=== PATIENT | female | born 1930 ===

== ENCOUNTER 2016-11-26 15:36 | Inpatient (IN) | payer MEDICARE, MEDICAID ==
[2016-11-26 15:37] VITALS: BMI 24.2
[2016-11-26 17:00] LABS: BASO # 0.1 K/uL (0.0-0.2); BASO % 0.3 % (0.0-2.0); EOS # 0.1 K/uL (0.0-0.7); EOS % 0.3 % (0.0-4.0); HEMATOCRIT 39.8 % (34.0-47.0); LYMPH # 1.5 K/uL (1.0-4.3); LYMPH % 8.2 % (20.0-40.0); MEAN CORPUSCULAR HEMOGLOBIN 29.8 pg (27.0-31.0); MEAN CORPUSCULAR HGB CONC 33.1 g/dL (33.0-37.0); MEAN PLATELET VOLUME 9.8 fL (7.2-11.7); MONO # 1.1 K/uL (0.0-0.8); MONO % 6.1 % (0.0-10.0); NRBC % 0.1 % (0.0-2.0); PLATELET COUNT 206 K/uL (130-400); RBC URINE 1 /hpf (0-3); RED CELL DISTRIBUTION WIDTH 14.5 % (11.5-14.5); URINE BILIRUBIN NEGATIVE (NEGATIVE); URINE BLOOD NEGATIVE (NEGATIVE); URINE COLOR Yellow (YELLOW); URINE GLUCOSE (UA) NORMAL (Normal); URINE KETONE NEGATIVE (NEGATIVE); URINE LEUKOCYTE ESTERASE TRACE Leu/uL (Negative); URINE PROTEIN 1+ mg/dL (NEGATIVE); URINE UROBILINOGEN NORMAL mg/dL (0.2-1.0); WBC URINE 2 /hpf (0-5); WHITE BLOOD COUNT 18.3 K/uL (4.8-10.8)
[2016-11-26 17:02] LABS: URINE BACTERIA OCC (<OCC)
[2016-11-26 17:03] LABS: CHLORIDE 96 mmol/L (98-107)
[2016-11-26 17:04] LABS: POTASSIUM 3.9 mmol/L (3.6-5.2); SODIUM 140 mmol/L (132-148)
[2016-11-26 17:06] LABS: ALB/GLOB RATIO 1.1 (1.0-2.1); ALKALINE PHOSPHATASE 108 U/L (38-126); ALT/SGPT 16 U/L (9-52); AST/SGOT 20 U/L (14-36); BILIRUBIN,TOTAL 0.6 mg/dL (0.2-1.3); BLOOD UREA NITROGEN 19 mg/dL (7-17); CARBON DIOXIDE 27 mmol/L (22-30); GFR AFRICAN-AMERICAN 57; GLUCOSE,RANDOM 117 mg/dL (65-105); TOTAL PROTEIN 7.4 g/dL (6.3-8.3)
[2016-11-26 17:07] LABS: CALCIUM 8.9 mg/dl (8.6-10.4)
--- NOTE | 2016-11-26 17:26 | C.PDOC ---
History Of Present Illness 86-year-old female, PMHx includes Hypertension, presents to the emergency department with complaints of non-productive cough x5 days. Patient was seen by PMD today, who sent her to ED for further evaluation. Patients secondary complaint is pain to left ankle, after the car door was slammed onto foot. Patient denies nausea/vomiting, fevers, chills, or any other associated symptoms. PMD Dr Hart Time Seen by Provider: 11/26/16 16:18 Chief Complaint (Nursing): Dizziness/Lightheaded History Per: Patient, Family (SON) History/Exam Limitations: no limitations Onset/Duration Of Symptoms: Days Fall Associated With With Symptoms: No Severity: Mild Past Medical History Reviewed: Historical Data, Nursing Documentation, Vital Signs Vital Signs: Last Vital Signs Temp 98.1 F 11/26/16 15:48 Pulse 90 11/26/16 15:48 Resp 16 11/26/16 15:48 BP 147/79 11/26/16 15:48 Pulse Ox 96 11/26/16 17:34 - Medical History PMH: Fractures (left wrist 3 weeks ago), HTN, Hyperlipidemia Surgical History: Appendectomy - [facility] Procedures APPLICATION OF SPLINT (06/07/15) DRESSING OF WOUND NEC (04/23/13) TETANUS TOXOID ADMINIST (04/23/13) Family History: States: No Known Family Hx - Social History Hx Tobacco Use: No Hx Alcohol Use: No Hx Substance Use: No - Immunization History Hx Tetanus Toxoid Vaccination: Yes Hx Influenza Vaccination: Yes Hx Pneumococcal Vaccination: Yes Review Of Systems Except As Marked, All Systems Reviewed And Found Negative. Constitutional: Negative for: Fever, Chills Cardiovascular: Negative for: Chest Pain, Palpitations Respiratory: Positive for: Cough. Negative for: Shortness of Breath, Sputum Gastrointestinal: Negative for: Nausea, Vomiting, Abdominal Pain, Diarrhea Musculoskeletal: Positive for: Foot Pain Physical Exam - Physical Exam Appears: Well, Non-toxic, No Acute Distress Skin: Warm, Dry, No Rash Head: Normacephalic Eye(s): bilateral: Normal Inspection Nose: Normal Oral Mucosa: Moist Neck: Normal, Normal ROM, Supple Cardiovascular: Rhythm Regular Respiratory: Normal Breath Sounds, No Rales, No Rhonchi, No Wheezing Gastrointestinal/Abdominal: Normal Exam, Bowel Sounds, Soft, No Tenderness Extremity: Normal ROM, Other (ECHYMOSIS TO LATERAL AND MEDIAL L MALLEOLUS. NO DEFORMITY. PULSES INTACT. SENSATION INTACT) Neurological/Psych: Oriented x3 ED Course And Treatment - Laboratory Results Result Diagrams: 11/26/16 16:52 11/26/16 16:52 O2 Sat by Pulse Oximetry: 96 (ra) Pulse Ox Interpretation: Normal - Radiology CXR: Interpreted by Me, Viewed By Me (? right middle lobe infiltrate) Progress Note: Blood work, UA, CXR, EKG ordered and reviewed. Patient has leukocytosis, with bandemia, ? right middle lobe infiltrate - IV antibiotics ordered. Pending Dr. Hart call back. Disposition - Disposition Disposition Time: 19:00 Condition: STABLE - Clinical Impression Clinical Impression: Leukocytosis, Bandemia, Pneumonia - Scribe Statement The provider has reviewed the documentation as recorded by the Polinaibfidencio Lima All medical record entries made by the Scribe were at my direction and personally dictated by me. I have reviewed the chart and agree that the record accurately reflects my personal performance of the history, physical exam, medical decision making, and the department course for this patient. I have also personally directed, reviewed, and agree with the discharge instructions and disposition. Physician Patient Turnover Patient Signed Over To: Jeb Hart Handoff Comments: Pending call back from Dr. Hart.
[2016-11-26 17:54] LABS: NEUTROPHIL 82 % (50-75); TOTAL CELLS COUNTED 100
[2016-11-26 17:55] LABS: GIANT PLATELETS PRESENT; LARGE PLATELETS PRESENT
[2016-11-26] MEDS ORDERED: Azithromycin 500 MG in Sodium Chloride 0.9% 250 ML IVPB STA (18:11)
[2016-11-26] MEDS ORDERED: cefTRIAXone IV 1 gm in Dextros 50 ML IV ONE (18:11)
--- NOTE | 2016-11-26 18:56 | RAD ---
PROCEDURE: CHEST RADIOGRAPH, 1 VIEW HISTORY: COUGH COMPARISON: 09/29/2015. FINDINGS: LUNGS: Perihilar, right lower lobe infiltrate a new finding compared to the prior study. PLEURA: No pneumothorax or pleural fluid seen. CARDIOVASCULAR: Cardiomegaly. No evidence of acute, significant cardiovascular disease. OSSEOUS STRUCTURES: No significant abnormalities. VISUALIZED UPPER ABDOMEN: Normal. OTHER FINDINGS: None. IMPRESSION: New right lower lobe infiltrate perihilar distribution.
[2016-11-26] MEDS ORDERED: cefTRIAXone IV 1 gm in Dextros 50 ML IVPB ONE (18:57)
--- NOTE | 2016-11-26 18:57 | RAD ---
PROCEDURE: Left Ankle Radiographs. HISTORY: LEFT ANKLE PAIN, S/P INJURY COMPARISON: None FINDINGS: BONES: No acute fracture. Plantar and Achilles Tendon insertion calcaneal spurs JOINTS: Normal. No osteoarthritis. Ankle mortise maintained. Talar dome intact SOFT TISSUES: Normal. OTHER FINDINGS: None. IMPRESSION: No acute findings related to/accounting for the clinical presentation. Additional benign and/or incidental findings described above.
[2016-11-26] MEDS ORDERED: Azithromycin 500mg/250ML NS 250 ML IVPB ONE (18:58)
[2016-11-26 20:10] VITALS: RESP 20
[2016-11-27] MEDS: Sodium Chloride 0.45% 1,000 ML IV SCH ×2 (01:55→18:00)
[2016-11-27] MEDS: Piperacill/Tazo 3.375gm in Dex 50 ML IVPB SCH ×3 (05:50→21:16)
[2016-11-27 07:22] LABS: CHLORIDE 99 mmol/L (98-107)
[2016-11-27 07:23] LABS: POTASSIUM 3.7 mmol/L (3.6-5.2); SODIUM 137 mmol/L (132-148)
[2016-11-27 07:25] LABS: ALKALINE PHOSPHATASE 87 U/L (38-126); AST/SGOT 17 U/L (14-36); BILIRUBIN,TOTAL 0.6 mg/dL (0.2-1.3); BLOOD UREA NITROGEN 16 mg/dL (7-17); CARBON DIOXIDE 25 mmol/L (22-30); GFR AFRICAN-AMERICAN > 60; GLUCOSE,RANDOM 95 mg/dL (65-105); TOTAL PROTEIN 6.2 g/dL (6.3-8.3)
[2016-11-27 07:26] LABS: ALT/SGPT 18 U/L (9-52); CALCIUM 8.5 mg/dl (8.6-10.4)
[2016-11-27 07:27] LABS: BASO % 0.3 % (0.0-2.0); EOS # 0.2 K/uL (0.0-0.7); EOS % 1.8 % (0.0-4.0); HEMATOCRIT 36.8 % (34.0-47.0); LYMPH # 1.7 K/uL (1.0-4.3); LYMPH % 12.6 % (20.0-40.0); MEAN CORPUSCULAR HEMOGLOBIN 30.1 pg (27.0-31.0); MEAN PLATELET VOLUME 9.8 fL (7.2-11.7); MONO # 1.1 K/uL (0.0-0.8); MONO % 8.3 % (0.0-10.0); RED CELL DISTRIBUTION WIDTH 14.5 % (11.5-14.5); WHITE BLOOD COUNT 13.7 K/uL (4.8-10.8)
[2016-11-27] MEDS: Azithromycin 500 MG in Sodium Chloride 0.9% 250 ML IVPB SCH (10:21)
--- NOTE | 2016-11-27 13:04 | CP.PCM.CON ---
History of Present Illness - History of Present Illness History of Present Illness: HISTORY OF PRESENT ILLNESS; 86-year-old female with history of HTN, hyperlipidemia, recent fracture left wrist 3 weeks ago who presented to the emergency department with complaints of nonproductive cough and shortness of breath for the past 5 days. Patient was seen by her private M.D. who sent her to the ER for further evaluation. In the ER patient was found to have increasing leukocytosis with WBC count of 18.3 with bandemia and chest x-ray reported as right sided perihilar infiltrate. Patient was therefore advised admission for IV antibiotics. Patient was started on IV Rocephin and and later switched to IV Zosyn and Zithromax. Patient denies history of body aches, nausea, vomiting, fever or chills. Patient is a poor historian and unable to give much details. She also complains off left ankle pain after she hurt herself with her car door onto her feet. Infectious disease consultation requested by for further evaluation and recommendations. PATIENT DENIES ANY RECENT SICK CONTACTS OR ANY RECENT TRAVEL. PATIENT DENIES ANY HEADACHEOR SINUS PROBLEM. PMH: Fractures (left wrist 3 weeks ago), HTN, Hyperlipidemia Surgical History: Appendectomy Family History: States: No Known Family Hx - Social History Hx Tobacco Use: No Hx Alcohol Use: No Hx Substance Use: No - Immunization History Hx Tetanus Toxoid Vaccination: Yes Hx Influenza Vaccination: Yes Hx Pneumococcal Vaccination: Yes Review of Systems - Constitutional Constitutional: absent: Chills, Fever, Headache - EENT Eyes: absent: Change in Vision, Floaters, Photophobia Ears: Dizziness. absent: Ear Pain Nose/Mouth/Throat: absent: Sinus Pain, Mouth Lesions - Cardiovascular Cardiovascular: Dyspnea on Exertion. absent: Chest Pain - Respiratory Respiratory: Cough, Dyspnea on Exertion. absent: Hemoptysis (NONPRODUCTIVE COUGH.), Pain with Coughing - Gastrointestinal Gastrointestinal: absent: Diarrhea, Nausea, Vomiting - Genitourinary Genitourinary: absent: Difficulty Urinating, Dysuria, Pyuria - Musculoskeletal Musculoskeletal: absent: Muscle Cramps, Neck Pain, Stiffness - Neurological Neurological: Dizziness - Hematologic/Lymphatic Hematologic: As Per HPI. absent: Lymphadenopathy Past Patient History - Infectious Disease Hx of Infectious Diseases: None - Past Medical History & Family History Past Medical History?: Yes - Past Social History Smoking Status: Never Smoked - CARDIAC Hx Cardiac Disorders: Yes Hx Hypertension: Yes - PULMONARY Hx Respiratory Disorders: No - NEUROLOGICAL Hx Neurological Disorder: No - HEENT Hx HEENT Problems: No - RENAL Hx Chronic Kidney Disease: No - ENDOCRINE/METABOLIC Hx Endocrine Disorders: No - HEMATOLOGICAL/ONCOLOGICAL Hx Blood Disorders: No - INTEGUMENTARY Hx Dermatological Problems: No - MUSCULOSKELETAL/RHEUMATOLOGICAL Hx Musculoskeletal Disorders: Yes Hx Falls: No Hx Fractures: Yes (left wrist 3 weeks ago) - GASTROINTESTINAL Hx Gastrointestinal Disorders: No - GENITOURINARY/GYNECOLOGICAL Hx Genitourinary Disorders: No - PSYCHIATRIC Hx Psychophysiologic Disorder: No Hx Substance Use: No - SURGICAL HISTORY Hx Surgeries: Yes Hx Appendectomy: Yes - ANESTHESIA Hx Anesthesia: No Hx Anesthesia Reactions: No Meds Allergies/Adverse Reactions: Allergies Allergy/AdvReac Type Severity Reaction Status Date / Time meclizine Allergy Verified 11/26/16 15:50 - Medications Medications: Current Medications Albuterol Sulfate (Albuterol 0.083% Inhal Deena (2.5 Mg/3 Ml) Ud) 2.5 mg INH RQID [facility] Heparin Sodium (Porcine) (Heparin) 5,000 units SC Q12 [facility] Last Admin: 11/27/16 10:21 Dose: 5,000 units Piperacillin Sod/Tazobactam Sod (Zosyn 3.375 Gm Iv Premix) 50 mls @ 100 mls/hr IVPB Q8 [facility] Last Admin: 11/27/16 05:50 Dose: 100 mls/hr Sodium Chloride (Sodium Chloride 0.45%) 1,000 mls @ 80 mls/hr IV .[id number] [facility] Last Admin: 11/27/16 01:55 Dose: 80 mls/hr Azithromycin 500 mg/ Sodium (Chloride) 250 mls @ 250 mls/hr IVPB DAILY [facility] Last Admin: 11/27/16 10:21 Dose: 250 mls/hr Lisinopril (Zestril) 5 mg PO DAILY [facility] Last Admin: 11/27/16 10:21 Dose: 5 mg Montelukast Sodium (Singulair) 10 mg PO HS [facility] Rosuvastatin Calcium (Crestor) 5 mg PO HS [facility] Physical Exam - Constitutional Appears: No Acute Distress - Head Exam Head Exam: NORMAL INSPECTION - Eye Exam Eye Exam: EOMI, PERRL - ENT Exam ENT Exam: Mucous Membranes Dry, Mucous Membranes Moist, Normal Oropharynx - Neck Exam Neck exam: Positive for: Normal Inspection. Negative for: Lymphadenopathy, Thyromegaly - Respiratory Exam Respiratory Exam: Prolonged Expiratory Phase, Rhonchi, Wheezes ( RIGHT SIDE) - Cardiovascular Exam Cardiovascular Exam: REGULAR RHYTHM, +S1, +S2. absent: Systolic Murmur - GI/Abdominal Exam GI & Abdominal Exam: Normal Bowel Sounds, Soft. absent: Organomegaly - Extremities Exam Extremities exam: Positive for: pedal pulses present. Negative for: calf tenderness, pedal edema Additional comments: ecchymosis to the lateral medial left malleolus. pulses intact, sensations intact. - Psychiatric Exam Psychiatric exam: Normal Mood - Skin Skin Exam: Normal Color, Warm Results - Vital Signs Recent Vital Signs: Last Vital Signs Temp 98.5 F 11/27/16 08:00 Pulse 92 H 11/27/16 08:00 Resp 20 11/27/16 08:00 BP 135/78 11/27/16 08:00 Pulse Ox 97 11/27/16 08:00 - Labs Result Diagrams: 11/27/16 06:45 11/27/16 06:45 Labs: Laboratory Results - last 24 hr 11/27/16 06:45 WBC 13.7 H RBC 4.04 Hgb 12.2 Hct 36.8 MCV 91.0 MCH 30.1 MCHC 33.0 RDW 14.5 Plt Count 189 MPV 9.8 Neut % (Auto) 77.0 H Lymph % (Auto) 12.6 L [place] % (Auto) 8.3 Eos % (Auto) 1.8 Baso % (Auto) 0.3 Neut # 10.5 H Lymph # 1.7 [place] # 1.1 H Eos # 0.2 Baso # 0.0 Sodium 137 Potassium 3.7 Chloride 99 Carbon Dioxide 25 Anion Gap 17 BUN 16 Creatinine 0.9 Est GFR ( Amer) > 60 Est GFR (Non-Af Amer) 59 Random Glucose 95 Calcium 8.5 L Total Bilirubin 0.6 AST 17 ALT 18 Alkaline Phosphatase 87 Total Protein 6.2 L Albumin 3.2 L Globulin 3.1 Albumin/Globulin Ratio 1.0 - Imaging and Cardiology Chest x-ray Status: Report reviewed by me (right lower lobe and perihilar infiltrate.) Assessment & Plan (1) Pneumonia Assessment and Plan: chest x-ray; perihilar/right lower lobe pneumonia. Continue IV antibiotics as ordered. Status: Acute (2) Leukocytosis Assessment and Plan: follow-up CBC which seems to be improving presently. Status: Acute (3) Bandemia Status: Acute (4) Dizziness Status: Acute (5) Calcaneal spur of left foot Assessment and Plan: x-ray left ankle ; no acute fracture, calcaneal spur present. If pain persists questionable podiatry consult for further evaluation. Status: Acute - Assessment and Plan (Free Text) Plan: PANCULTURES. ESR, CRP. mrsa screen ATYPICAL TITERS CONTINUE iv ZOSYN 3.375 EVERY 8 HOURLY 11/26/16. CONTINUE iv ZITHROMAX 500 MG QD DAILY. PULMONARY TOILET. Case discussed with staff/ and PMD. WE'LL FOLLOW ALONG WITH YOU WHILE PATIENT IN HOSPITAL. tHANK YOU
[2016-11-27] MEDS: Albuterol 0.083% Inhal Sol (2.5 mg/3 mL) UD INH SCH ×3 (13:05→19:33)
--- NOTE | 2016-11-27 16:07 | CARD ---
APPROVED REPORT EKG Measurement Heart [id number] <Conclusion> Sinus rhythm with premature atrial complexes with aberrant conduction ST & T wave abnormality, consider lateral ischemia Abnormal ECG
--- NOTE | 2016-11-27 23:59 | HP ---
HISTORY OF PRESENT ILLNESS: This patient is an 86-year-old female with hypertension and arthritis. The patient came to my office. The patient was complaining of generalized weakness. and shortness o f breath and cough and chills. This patient was evaluated. The patient was found to be very weak an d we had the patient to go to the Emergency Room for evaluation, which patient has . In the ER the patient had some tests done and was admitted. ALLERGIES: The patient has no known allergy. PAST MEDICAL HISTORY: As I mentioned, a history of hypertension and arthritis. SOCIAL HISTORY: The patient has no history of smoking or alcohol abuse and no substance abuse. FAMILY HISTORY: No inherited disease. REVIEW OF SYSTEMS: RESPIRATORY: Positive for dry cough and some shortness breath with exertion. CARDIOVASCULAR: There is no chest pain or palpitation. GASTROINTESTINAL: The patient denies nausea or vomiting. GENITOURINARY: No dysuria. NEUROLOGIC: The patient complaining of foot pain. PHYSICAL EXAMINATION: GENERAL: The patient is alert, awake and oriented, but weak on admission. The patient has blood pre ssure that was 125/76, pulse is 95, respirations 20, temperature 97.4. HEAD: Normocephalic. NECK: Supple. LUNGS: There are some rales at the right half of the lower aspect of the lung. Also there is some e xpiratory wheezing. HEART: Regular rate and rhythm. ABDOMEN: Soft and nontender. No palpable mass. Positive bowel sounds. EXTREMITIES: There is no edema. NEUROLOGIC:: The patient is alert, awake, but a weak, no motor deficit, except the patient has some unsteady gait. The patient had some tests done. The labs done showed that the WBC 18.3, hemoglobin 13.2, hematocrit 39.8 and platelet was 206. Chemistry: Sodium 140, potassium 2.9, chloride 96, bicarbonate 27, BUN 19, creatinine 1.1. Troponin was less than 0.012. Coagulation: PT was 11.7, INR 1, PTT 31 . The patient had also a chest x-ray done that showed perihilar and right lower lobe infiltrate and als o there is some cardiomegaly, but no evidence of acute or surgical cardiovascular disease. The patient will be admitted with the diagnoses of pneumonia and also with the diagnosis of hypertens ion. The patient will have a consult with Dr. Noroze Roldan, ID. So the case is reviewed with the Kanwal castro se . Ordered blood work for tomorrow. Jeb Hart MD cc: [id number] TT: 11/27/2016 23:58:33 ln
[2016-11-28] MEDS: Sodium Chloride 0.45% 1,000 ML IV SCH ×2 (02:00→13:54)
[2016-11-28] MEDS: Piperacill/Tazo 3.375gm in Dex 50 ML IVPB SCH ×3 (05:59→22:04)
[2016-11-28] MEDS: Albuterol 0.083% Inhal Sol (2.5 mg/3 mL) UD INH SCH ×4 (07:43→20:19)
[2016-11-28] MEDS: Azithromycin 500 MG in Sodium Chloride 0.9% 250 ML IVPB SCH (11:44)
[2016-11-28] MEDS: Promethazine DM 6.25 mg-15 mg/5 ml Syrup PO PRN (14:26)
--- NOTE | 2016-11-28 20:10 | PN ---
DATE: 11/28/2016 SUBJECTIVE: Today, the patient is alert and awake. Denies any shortness of breath, no chest pain, _ ___congestive cough and no dizziness. PHYSICAL EXAMINATION: VITAL SIGNS: The patient has a blood pressure of 127/72, pulse 68, respiration 20, temperature 97.8. NECK: Supple. No JVD. LUNGS: Less rales at the right base and no wheezing today. HEART: Regular rate and rhythm. Positive murmur. ABDOMEN: Soft and nontender. No palpable mass. EXTREMITIES: There is no edema. LABORATORY DATA: The patient has some tests done. WBC was 13.7 yesterday. PLAN: We are going to repeat the blood work tomorrow and also repeat the chest x-ray tomorrow. Cont inue with the current nebulizer, continue on antibiotic therapy and also continue the Singulair. The case was discussed with Kanwal TSANG, nurse practitioner. Lab review again tomorrow. Jeb Hart MD cc: [id number] TT: 11/28/2016 20:09:53 Confirmation # [id number] Dictation # [id number] alessandro
--- NOTE | 2016-11-28 20:29 | CP.PCM.PN ---
Subjective - Date & Time of Evaluation Date of Evaluation: 11/28/16 Time of Evaluation: 20:29 - Subjective Subjective: CHIEF COMPLAINTS TODAY : afebrile,vss Complains of nonproductive cough, SOB ON EXERTION Bilateral expiratory wheeze with rhonchi right lower lung base. ROS. HEENT : N. Resp : +VE SOB, +VE WHEEZING AND COUGH . Cardio : No CP, PND orthopnea GI : No abd. 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 Musculoskel : N Ext. : Pedal pulses intact, no edema or calf pain Derm : N Psych : N. PE. Pt. is alert awake in no distress. V.S As noted in the chart Head ,ear nose,throat and eyes : Normal. Neck : Supple with normal carotids. Lungs: RHONCHI RIGHT LOWER LUNG, WITH PROLONGED EXPIRATORY PHASE. Heart : S1 & S2 normal . . No murmur. S4 + Abd : Soft non tender with normal bowel sounds. Neuro : Moves all ext. with no localized deficit. Ext : No edema with intact pulses. Neg. calf tenderness Derm : No rashes or decubitus ulcer. Radiology/Labs . REVIEWED WBC 13.7 improving esr 68 CRP ELEVATED MYCOPLASMA IGM- NEGATIVE. Asssessment : RLL/RT.PERIHILAR PNEUMONIA ?CAP VS ATYPICAL EXACERBATION OF COPD Plan : CONTINUE iv ZOSYN 3.375 EVERY 8 HOURLY 11/26/16. CONTINUE iv ZITHROMAX 500 MG QD DAILY.11/27/15 PULMONARY TOILET. FOLLOW-UP BLOOD CULTURES. Objective - Vital Signs/Intake and Output Vital Signs (last 24 hours): Temp Pulse Resp BP Pulse Ox 97.8 F 68 20 137/72 99 11/28/16 17:00 11/28/16 17:00 11/28/16 17:00 11/28/16 17:00 11/28/16 17:00 Intake and Output: 11/28/16 11/29/16 18:59 06:59 Intake Total 1290 Balance 1290 - Medications Medications: Current Medications Acetaminophen (Tylenol 325mg Tab) 650 mg PO Q6 PRN PRN Reason: Pain, moderate (4-7) Last Admin: 11/28/16 00:50 Dose: 650 mg Albuterol Sulfate (Albuterol 0.083% Inhal Deena (2.5 Mg/3 Ml) Ud) 2.5 mg INH RQID [facility] Last Admin: 11/28/16 20:19 Dose: 2.5 mg Aspirin (Ecotrin) 81 mg PO DAILY [facility] Last Admin: 11/28/16 11:43 Dose: 81 mg Heparin Sodium (Porcine) (Heparin) 5,000 units SC Q12 [facility] Last Admin: 11/28/16 11:43 Dose: 5,000 units Piperacillin Sod/Tazobactam Sod (Zosyn 3.375 Gm Iv Premix) 50 mls @ 100 mls/hr IVPB Q8 [facility] Last Admin: 11/28/16 13:52 Dose: 100 mls/hr Sodium Chloride (Sodium Chloride 0.45%) 1,000 mls @ 80 mls/hr IV .[id number] [facility] Last Admin: 11/28/16 13:54 Dose: 80 mls/hr Azithromycin 500 mg/ Sodium (Chloride) 250 mls @ 250 mls/hr IVPB DAILY [facility] Last Admin: 11/28/16 11:44 Dose: 250 mls/hr Lisinopril (Zestril) 5 mg PO DAILY [facility] Last Admin: 11/28/16 11:44 Dose: 5 mg Montelukast Sodium (Singulair) 10 mg PO HS [facility] Last Admin: 11/27/16 21:20 Dose: 10 mg Pantoprazole Sodium (Protonix Inj) 40 mg IVP DAILY [facility] Last Admin: 11/28/16 11:43 Dose: 40 mg Promethazine HCl/Dextromethorphan (Phenergan Dm Syrup) 5 ml PO Q6H PRN PRN Reason: Cough and congestion Last Admin: 11/28/16 14:26 Dose: 5 ml Rosuvastatin Calcium (Crestor) 5 mg PO HS [facility] Last Admin: 11/28/16 00:22 Dose: 5 mg - Labs Labs: 11/27/16 06:45 11/27/16 06:45 PT 11.7 SECONDS (9.7-12.2) 11/26/16 16:52 INR 1.0 11/26/16 16:52 APTT 31 SECONDS (21-34) 11/26/16 16:52 Assessment and Plan (1) Pneumonia Status: Acute (2) Leukocytosis Status: Acute (3) Bandemia Status: Acute (4) Dizziness Status: Acute (5) Calcaneal spur of left foot Status: Acute
[2016-11-29] MEDS: Sodium Chloride 0.45% 1,000 ML IV SCH (03:00)
[2016-11-29] MEDS: Piperacill/Tazo 3.375gm in Dex 50 ML IVPB SCH ×3 (05:29→21:24)
[2016-11-29 07:20] LABS: BASO # 0.1 K/uL (0.0-0.2); BASO % 0.8 % (0.0-2.0); EOS # 0.6 K/uL (0.0-0.7); EOS % 5.9 % (0.0-4.0); HEMATOCRIT 33.5 % (34.0-47.0); LYMPH # 1.9 K/uL (1.0-4.3); LYMPH % 20.4 % (20.0-40.0); MEAN CELL VOLUME 90.9 fL (81.0-99.0); MEAN CORPUSCULAR HEMOGLOBIN 30.1 pg (27.0-31.0); MEAN CORPUSCULAR HGB CONC 33.1 g/dL (33.0-37.0); MEAN PLATELET VOLUME 9.9 fL (7.2-11.7); MONO % 10.7 % (0.0-10.0); NRBC % 0.1 % (0.0-2.0); RED CELL DISTRIBUTION WIDTH 14.6 % (11.5-14.5); WHITE BLOOD COUNT 9.3 K/uL (4.8-10.8)
[2016-11-29 07:27] LABS: POTASSIUM 3.7 mmol/L (3.6-5.2)
[2016-11-29 07:30] LABS: CALCIUM 8.6 mg/dl (8.6-10.4)
[2016-11-29] MEDS: Albuterol 0.083% Inhal Sol (2.5 mg/3 mL) UD INH SCH ×4 (09:00→19:42)
[2016-11-29] MEDS: Azithromycin 500 MG in Sodium Chloride 0.9% 250 ML IVPB SCH (10:28)
--- NOTE | 2016-11-29 15:52 | PN ---
DATE: 11/29/2016 Today, the patient is more alert and awake and having less cough and no shortness of breath at rest, but still has shortness of breath on exertion. The patient denied abdominal pain. PHYSICAL EXAMINATION: VITAL SIGNS: The blood pressure is 137/79, pulse 73, respirations 20, temperature 97.8. NECK: Supple. No JVD. LUNGS: Some fine rales at right base. HEART: Regular rate and rhythm. Positive murmur. ABDOMEN: Soft, nontender. No palpable mass. EXTREMITIES: There is no edema. Labs done showed WBC 9.3, hemoglobin 11.1, hematocrit 32.5 and platelets is 233. Chemistry showed so dium is ____, [id number] 102, bicarb 24, BUN 10, creatinine 1.1, and glucose 88. C-reactive protein _ ___. The patient had a chest x-ray done. The result is pending. PLAN: We will continue the current medication. Start physical therapy and the case was reviewed and discussed with ____. Jeb Hart MD cc: [id number] TT: 11/29/2016 15:52:15 Confirmation # [id number] Dictation # [id number] tn
--- NOTE | 2016-11-29 18:20 | CP.PCM.PN ---
Subjective - Date & Time of Evaluation Date of Evaluation: 11/29/16 Time of Evaluation: 18:19 - Subjective Subjective: CHIEF COMPLAINTS TODAY : afebrile,vss Complains of nonproductive cough, SOB ON EXERTION rhonchi right lower lung base. ROS. HEENT : N. Resp : +VE SOB, +VE WHEEZING AND COUGH . Cardio : No CP, PND orthopnea GI : No abd. 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 Musculoskel : N Ext. : Pedal pulses intact, no edema or calf pain Derm : N Psych : N. PE. Pt. is alert awake in no distress. V.S As noted in the chart Head ,ear nose,throat and eyes : Normal. Neck : Supple with normal carotids. Lungs: RHONCHI RIGHT LOWER LUNG, WITH PROLONGED EXPIRATORY PHASE. Heart : S1 & S2 normal . . No murmur. S4 + Abd : Soft non tender with normal bowel sounds. Neuro : Moves all ext. with no localized deficit. Ext : No edema with intact pulses. Neg. calf tenderness Derm : No rashes or decubitus ulcer. Radiology/Labs . REVIEWED WBC 9.3 improving esr 68 CRP ELEVATED urinary AG. LEGINELLA -VE MYCOPLASMA IGM- NEGATIVE. blood culture -ve to date Asssessment : RLL/RT.PERIHILAR PNEUMONIA ?CAP VS ATYPICAL EXACERBATION OF COPD Plan : CONTINUE iv ZOSYN 3.375 EVERY 8 HOURLY 11/26/16. CONTINUE iv ZITHROMAX 500 MG QD DAILY.11/27/15 PULMONARY TOILET. f/u CXR ON THURSDAY. Objective - Vital Signs/Intake and Output Vital Signs (last 24 hours): Temp Pulse Resp BP Pulse Ox 97.8 F 73 20 137/79 96 11/29/16 08:34 11/29/16 08:34 11/29/16 08:34 11/29/16 08:34 11/29/16 08:34 Intake and Output: 11/29/16 11/29/16 06:59 18:59 Intake Total 1780 700 Balance 1780 700 - Medications Medications: Current Medications Acetaminophen (Tylenol 325mg Tab) 650 mg PO Q6 PRN PRN Reason: Pain, moderate (4-7) Last Admin: 11/28/16 00:50 Dose: 650 mg Albuterol Sulfate (Albuterol 0.083% Inhal Deena (2.5 Mg/3 Ml) Ud) 2.5 mg INH RQID [facility] Last Admin: 11/29/16 16:30 Dose: 2.5 mg Aspirin (Ecotrin) 81 mg PO DAILY [facility] Last Admin: 11/29/16 10:29 Dose: 81 mg Heparin Sodium (Porcine) (Heparin) 5,000 units SC Q12 [facility] Last Admin: 11/29/16 10:29 Dose: 5,000 units Piperacillin Sod/Tazobactam Sod (Zosyn 3.375 Gm Iv Premix) 50 mls @ 100 mls/hr IVPB Q8 [facility] Last Admin: 11/29/16 13:33 Dose: 100 mls/hr Azithromycin 500 mg/ Sodium (Chloride) 250 mls @ 250 mls/hr IVPB DAILY [facility] Last Admin: 11/29/16 10:28 Dose: 250 mls/hr Lisinopril (Zestril) 5 mg PO DAILY [facility] Last Admin: 11/29/16 10:29 Dose: 5 mg Montelukast Sodium (Singulair) 10 mg PO HS [facility] Last Admin: 11/28/16 21:38 Dose: 10 mg Pantoprazole Sodium (Protonix Inj) 40 mg IVP DAILY [facility] Last Admin: 11/29/16 10:29 Dose: 40 mg Promethazine HCl/Dextromethorphan (Phenergan Dm Syrup) 5 ml PO Q6H PRN PRN Reason: Cough and congestion Last Admin: 11/28/16 14:26 Dose: 5 ml Rosuvastatin Calcium (Crestor) 5 mg PO HS [facility] Last Admin: 11/28/16 21:37 Dose: 5 mg - Labs Labs: 11/29/16 07:04 11/29/16 07:04 PT 11.7 SECONDS (9.7-12.2) 11/26/16 16:52 INR 1.0 11/26/16 16:52 APTT 31 SECONDS (21-34) 11/26/16 16:52 Assessment and Plan (1) Pneumonia Status: Acute (2) Leukocytosis Status: Acute (3) Bandemia Status: Acute (4) Dizziness Status: Acute (5) Calcaneal spur of left foot Status: Acute
[2016-11-29] MEDS: Promethazine DM 6.25 mg-15 mg/5 ml Syrup PO PRN (18:23)
--- NOTE | 2016-11-29 18:32 | RAD ---
HISTORY: f/u pneumonia COMPARISON: Comparison chest 11/26/2016 TECHNIQUE: Chest PA and lateral FINDINGS: LUNGS: Previously noted right perihilar infiltrate appears to have improved slightly. Suspect mild left basilar atelectasis and or infiltrate as well. . PLEURA: No significant pleural effusion identified. No pneumothorax apparent. CARDIOVASCULAR: Heart size is borderline/ mildly enlarged. Aorta is ectatic and uncoiled. OSSEOUS STRUCTURES: No significant abnormalities. VISUALIZED UPPER ABDOMEN: Normal. OTHER FINDINGS: None. IMPRESSION: Slight improvement previously noted right perihilar infiltrate. Suspect mild left basilar atelectasis and or infiltrate.
[2016-11-30] MEDS: Piperacill/Tazo 3.375gm in Dex 50 ML IVPB SCH ×4 (05:40→21:28)
[2016-11-30 08:15] LABS: BASO # 0.1 K/uL (0.0-0.2); BASO % 0.8 % (0.0-2.0); EOS # 0.7 K/uL (0.0-0.7); EOS % 7.7 % (0.0-4.0); HEMATOCRIT 35.9 % (34.0-47.0); LYMPH # 2.2 K/uL (1.0-4.3); MEAN CELL VOLUME 91.5 fL (81.0-99.0); MEAN CORPUSCULAR HGB CONC 32.8 g/dL (33.0-37.0); MEAN PLATELET VOLUME 9.8 fL (7.2-11.7); MONO # 0.7 K/uL (0.0-0.8); MONO % 8.6 % (0.0-10.0); RED CELL DISTRIBUTION WIDTH 14.7 % (11.5-14.5); WHITE BLOOD COUNT 8.7 K/uL (4.8-10.8)
[2016-11-30] MEDS: Albuterol 0.083% Inhal Sol (2.5 mg/3 mL) UD INH SCH ×4 (08:37→19:39)
[2016-11-30] MEDS: Azithromycin 500 MG in Sodium Chloride 0.9% 250 ML IVPB SCH (10:16)
--- NOTE | 2016-11-30 15:00 | PN ---
DATE: 11/30/2016 Today, patient is more alert and awake and complaining of some congestive cough which is improving an d negative chest pain. The patient had a bowel movement PHYSICAL EXAMINATION: VITAL SIGNS: The patient has a blood pressure of 150/88, pulse 93, respirations 20, temperature 97.7 . NECK: Supple. No JVD. LUNGS: There are some fine rales at the right base. HEART: Regular rate and rhythm. Positive murmur. ABDOMEN: Soft and nontender, no palpable mass. Positive bowel sounds. EXTREMITIES: No edema. LABORATORY DATA: Blood tests done. It showed WBC 8.7, hemoglobin 11.8, hematocrit 35.9 and platelet s are 259. Chemistry: Sodium 141, potassium 3.7, chloride 102, bicarbonate 24, BUN 10, creatinine 1 .1, calcium 8.6. The blood cultures are negative after 3 days. The patient had a chest x-ray. The chest x-ray has shown that there is improvement. The perihilar infiltrate appeared to have improved slightly and mid left basilar atelectasis and/or infiltrate as well. The patient specifically complaining of some pain at the IV site while taking the Zithromax. We are going to order the Zithromax p.o. and also repeat the chest x-ray tomorrow and possible dischar ge tomorrow if the infiltrate is cleared up. Jeb Hart MD cc: [id number] TT: 11/30/2016 14:59:41 Confirmation # [id number] Dictation # [id number] ayah
--- NOTE | 2016-11-30 23:59 | CP.PCM.PN ---
Subjective - Date & Time of Evaluation Date of Evaluation: 11/30/16 Time of Evaluation: 23:59 - Subjective Subjective: CHIEF COMPLAINTS TODAY : afebrile,vss feeling slightly better still c/o COUGH ROS. HEENT : N. Resp : +VE SOB, +VE WHEEZING AND COUGH . Cardio : No CP, PND orthopnea GI : No abd. Pain, n/v [employer] : No headache , focal deficit. Musculoskel : N Ext. : Pedal pulses intact, no edema or calf pain Derm : N Psych : N. PE. Pt. is alert awake in no distress. V.S As noted in the chart Head ,ear nose,throat and eyes : Normal. Neck : Supple with normal carotids. Lungs: RHONCHI B/L LOWER LOWER LOBES, WITH PROLONGED EXPIRATORY PHASE. Heart : S1 & S2 normal . . No murmur. S4 + Abd : Soft non tender with normal bowel sounds. Neuro : Moves all ext. with no localized deficit. Ext : No edema with intact pulses. Neg. calf tenderness Derm : No rashes or decubitus ulcer. Radiology/Labs . REPEAT 11/29 CXR NOTED-SLIGHTLY IMPROVED RT PERIHILAR INFILTRATE BUT LLL NEW INFILTRATE/VS ATELECTASIS WBC 8.7 improving esr 68 CRP ELEVATED urinary AG. LEGINELLA -VE MYCOPLASMA IGM- NEGATIVE. blood culture -ve to date Asssessment : PNEUMONIA B/L EXACERBATION OF COPD Plan : AGREE W PMD PLANS F/U REPEAT CXR IN AM,. IF OK MAY SWITCH TO PO AUGMENTIN 875MG BID X 5DAYS CONTINUE iv ZOSYN 3.375 EVERY 8 HOURLY 11/26/16 FOR NOW CONTINUE PO ZITHROMAX 500 MG QD DAILY.11/27/15AS SWITCHED TO PO PULMONARY TOILET. Objective - Vital Signs/Intake and Output Vital Signs (last 24 hours): Temp Pulse Resp BP Pulse Ox 98.0 F 74 20 142/81 96 11/30/16 19:37 11/30/16 16:00 11/30/16 16:00 11/30/16 16:00 11/30/16 16:00 Intake and Output: 11/30/16 12/01/16 18:59 06:59 Intake Total 600 400 Balance 600 400 - Medications Medications: Current Medications Acetaminophen (Tylenol 325mg Tab) 650 mg PO Q6 PRN PRN Reason: Pain, moderate (4-7) Last Admin: 11/30/16 18:37 Dose: 650 mg Albuterol Sulfate (Albuterol 0.083% Inhal Deena (2.5 Mg/3 Ml) Ud) 2.5 mg INH RQID [facility] Last Admin: 11/30/16 19:39 Dose: 2.5 mg Aspirin (Ecotrin) 81 mg PO DAILY [facility] Last Admin: 11/30/16 10:15 Dose: 81 mg Azithromycin (Zithromax) 500 mg PO DAILY [facility] Piperacillin Sod/Tazobactam Sod (Zosyn 3.375 Gm Iv Premix) 50 mls @ 100 mls/hr IVPB Q8 [facility] Last Admin: 11/30/16 21:28 Dose: 100 mls/hr Lisinopril (Zestril) 5 mg PO DAILY [facility] Last Admin: 11/30/16 10:15 Dose: 5 mg Montelukast Sodium (Singulair) 10 mg PO HS [facility] Last Admin: 11/30/16 21:28 Dose: 10 mg Pantoprazole Sodium (Protonix Inj) 40 mg IVP DAILY [facility] Last Admin: 11/30/16 10:16 Dose: 40 mg Promethazine HCl/Dextromethorphan (Phenergan Dm Syrup) 5 ml PO Q6H PRN PRN Reason: Cough and congestion Last Admin: 11/29/16 18:23 Dose: 5 ml Rosuvastatin Calcium (Crestor) 5 mg PO HS [facility] Last Admin: 11/30/16 21:28 Dose: 5 mg - Labs Labs: 11/30/16 06:55 11/29/16 07:04 PT 11.7 SECONDS (9.7-12.2) 11/26/16 16:52 INR 1.0 11/26/16 16:52 APTT 31 SECONDS (21-34) 11/26/16 16:52 Assessment and Plan (1) Pneumonia Status: Acute (2) Leukocytosis Status: Acute (3) Bandemia Status: Acute (4) Dizziness Status: Acute (5) Calcaneal spur of left foot Status: Acute
[2016-12-01] MEDS: Piperacill/Tazo 3.375gm in Dex 50 ML IVPB SCH (05:29)
[2016-12-01 08:19] VITALS: BP 168/95; PULSE 91; TEMP 97.9; O2SAT 96
[2016-12-01 08:40] LABS: BASO # 0.1 K/uL (0.0-0.2); BASO % 0.9 % (0.0-2.0); EOS # 0.9 K/uL (0.0-0.7); EOS % 9.9 % (0.0-4.0); HEMATOCRIT 38.5 % (34.0-47.0); LYMPH # 2.1 K/uL (1.0-4.3); LYMPH % 22.2 % (20.0-40.0); MEAN CELL VOLUME 91.1 fL (81.0-99.0); MEAN CORPUSCULAR HEMOGLOBIN 29.6 pg (27.0-31.0); MEAN CORPUSCULAR HGB CONC 32.4 g/dL (33.0-37.0); MEAN PLATELET VOLUME 9.4 fL (7.2-11.7); MONO # 0.7 K/uL (0.0-0.8); MONO % 8.1 % (0.0-10.0); RED CELL DISTRIBUTION WIDTH 15.2 % (11.5-14.5); WHITE BLOOD COUNT 9.3 K/uL (4.8-10.8)
[2016-12-01] MEDS: Albuterol 0.083% Inhal Sol (2.5 mg/3 mL) UD INH SCH ×2 (08:46→13:16)
[2016-12-01 08:52] LABS: POTASSIUM 4.6 mmol/L (3.6-5.2)
[2016-12-01 08:54] LABS: BILIRUBIN,TOTAL 0.3 mg/dL (0.2-1.3)
[2016-12-01 08:55] LABS: ALB/GLOB RATIO 1.1 (1.0-2.1); CALCIUM 9.6 mg/dl (8.6-10.4)
--- NOTE | 2016-12-01 09:45 | RAD ---
HISTORY: Pneumonia COMPARISON: 11/26/2016. TECHNIQUE: Chest PA and lateral FINDINGS: LUNGS: The lungs are well inflated and clear. PLEURA: No significant pleural effusion identified. No pneumothorax apparent. CARDIOVASCULAR: There is mild cardiomegaly. Atherosclerotic aortic arch calcifications are present. OSSEOUS STRUCTURES: No significant abnormalities. VISUALIZED UPPER ABDOMEN: Normal. OTHER FINDINGS: None. IMPRESSION: No active pulmonary disease. Mild cardiomegaly.
--- NOTE | 2016-12-01 16:24 | CP.PCM.PN ---
Subjective - Date & Time of Evaluation Date of Evaluation: 12/01/16 Time of Evaluation: 11:00 - Subjective Subjective: Awake, alert, no sob or chest pains, NAD. Objective - Vital Signs/Intake and Output Vital Signs (last 24 hours): Temp Pulse Resp BP Pulse Ox 97.9 F 91 H 20 168/95 H 96 12/01/16 08:14 12/01/16 08:14 12/01/16 08:14 12/01/16 08:14 12/01/16 08:14 Intake and Output: 12/01/16 12/01/16 06:59 18:59 Intake Total 630 Balance 630 - Labs Labs: 12/01/16 08:30 12/01/16 08:30 PT 11.7 SECONDS (9.7-12.2) 11/26/16 16:52 INR 1.0 11/26/16 16:52 APTT 31 SECONDS (21-34) 11/26/16 16:52 Assessment and Plan - Assessment and Plan (Free Text) Assessment: Patient is seen and examined. Alert, awake, denies sob or chest pains. Seen by DR Hart, discharge plan for today on po augmentin for 5 days. Advised to follow up in the office in 1 week.
--- NOTE | 2016-12-01 20:00 | PN ---
DATE: 12/01/2016 SUBJECTIVE: Today, the patient is alert and awake. Denies any shortness of breath, no dizziness. N o shortness of breath. Denies any cough. PHYSICAL EXAMINATION: VITAL SIGNS: The patient has blood pressure of 160/90, pulse is 91, respirations 20, temperature 97. 9. HEENT: Head is normocephalic. NECK: Supple. LUNGS: Clear. HEART: Regular rate and rhythm. Positive murmur. ABDOMEN: Soft and nontender. No palpable mass. EXTREMITIES: There is no edema. LABORATORY DATA: The patient had tests done. The patient had a chest x-ray done today reveal no active pulmonary disease. Also the lab showed WBC 9.3, hemoglobin 12.5, hematocrit 38.5 and plate let 328. Chemistry shows sodium 141, potassium 4.6, chloride 100, bicarbonate 27, BUN 13, creatinine 1.2, glucose 85. WBC 9.3, hemoglobin 12.5, hematocrit 38.5 and platelets are 328. PLAN: We are going to discharge the patient home on Augmentin. The case was reviewed and discussed with Modesta, the nurse practitioner. Jeb Hart MD cc: [id number] TT: 12/01/2016 19:59:30 Confirmation # [id number] Dictation # [id number] ayah
--- NOTE | 2016-12-02 11:52 | DS ---
The patient is an 86-year-old female with history of hypertension and arthritis. The patient came to my office, and the patient was complaining of generalized weakness, cough, and some shortness of edmund ath on exertion. The patient was evaluated and was sent to the Emergency Room for evaluation. In the Emergency Room, the patient was found to have a chest x-ray that was positive for pneumonia, a nd the patient was put on medications including Zosyn and Zithromax, and the patient's ____ medicatio ns. Progressively, the patient has improved, and the chest x-ray done today has revealed no acute pulmona ry disease. So at this point, the patient may be able to be discharged home, and we will discharge the patient on Augmentin and her ____ blood pressure medication. The patient is planning to come to see me within 1 week. Jeb Hart MD cc: [id number] TT: 12/02/2016 11:52:26 jn
== END 2016-12-05 17:05 | disposition home or self-care (01) | DRG 195 ==
LOC: C.ER 15:36 → C.9E 23:10 → C.3T 23:36 → UNDODISIN 12-01 13:16
PROVIDERS: ADMIT Specialist; ATTEND Specialist
DX: J18.9 Pneumonia, unspecified organism (principal); E87.5 Hyperkalemia; I10 Essential (primary) hypertension; D72.825 Bandemia; S97.82XA Crushing injury of left foot, initial encounter; E78.5 Hyperlipidemia, unspecified; M19.90 Unspecified osteoarthritis, unspecified site; M25.572 Pain in left ankle and joints of left foot; R42 Dizziness and giddiness; V48.4XXA Person boarding or alighting a car injured in noncollision transport accident, initial encounter; Z87.81 Personal history of (healed) traumatic fracture

== ENCOUNTER 2016-12-01 18:19 | Inpatient (IN) | payer MEDICARE, MEDICAID ==
[~2016-12-01 18:19] MED LIST: Nitroglycerin 2% Ointment Foilpak UD TOP SCH
[2016-12-01 18:44] VITALS: BMI 28.3
--- NOTE | 2016-12-01 18:47 | C.PDOC ---
History Of Present Illness The patient, a 86y/o female, presents to the emergency department for evaluation of swelling to her lips and lower facial area which began at around 15:30 today. As per daughter, patient has experienced similar symptoms a few years ago. Patient states she was recently discharged from the hospital. Additionally, patient states she has been taking Lisinopril as prescribed. Patient denies cough, shortness of breath, vomiting. Time Seen by Provider: 12/01/16 18:44 History Per: Patient, Family History/Exam Limitations: no limitations Onset/Duration Of Symptoms: Hrs Current Symptoms Are (Timing): Still Present Additional History Per: Patient Past Medical History Reviewed: Historical Data, Nursing Documentation, Vital Signs Vital Signs: Last Vital Signs Temp 98.2 F 12/01/16 21: Pulse 76 12/01/16 21: Resp 20 12/01/16 21:17 BP 143/105 H 12/01/16 21: Pulse Ox 100 12/01/16 21:17 - Medical History PMH: Fractures (left wrist 3 weeks ago), HTN, Hyperlipidemia Denies: Chronic Kidney Disease Surgical History: Appendectomy - [facility] Procedures APPLICATION OF SPLINT (06/07/15) DRESSING OF WOUND NEC (04/23/13) TETANUS TOXOID ADMINIST (04/23/13) Family History: States: Unknown Family Hx - Social History Hx Tobacco Use: No Hx Alcohol Use: No Hx Substance Use: No - Immunization History Hx Tetanus Toxoid Vaccination: Yes Hx Influenza Vaccination: Yes Hx Pneumococcal Vaccination: Yes Review Of Systems Constitutional: Negative for: Fever, Chills Cardiovascular: Negative for: Chest Pain Respiratory: Negative for: Cough, Shortness of Breath Gastrointestinal: Negative for: Nausea, Vomiting, Abdominal Pain, Diarrhea Skin: Positive for: Other (+swelling to lips and lower facial region ) Neurological: Negative for: Weakness, Numbness Physical Exam - Physical Exam Appears: Non-toxic, No Acute Distress Skin: Normal Color, Warm, Dry, No Rash Head: Atraumatic, Swelling (+lower facial region ) Eye(s): bilateral: Normal Inspection Oral Mucosa: Moist Tongue: Normal Appearing, No Swelling Lips: Swelling Gingiva: Normal Appearing, No Swelling Throat: Normal, No Erythema, No Exudate Neck: Normal ROM, Supple Chest: Symmetrical, No Deformity Cardiovascular: Rhythm Regular, No Murmur Respiratory: Normal Breath Sounds, No Rales, No Rhonchi, No Wheezing Back: Normal Inspection Extremity: Normal ROM, Capillary Refill (less than 2 seconds) Neurological/Psych: Oriented x3, Normal Speech, Other (no focal deficits) Gait: Steady ED Course And Treatment - Laboratory Results Result Diagrams: 12/01/16 19:01 12/01/16 19:01 ECG: Interpreted By Me, Viewed By Me ECG Rhythm: Sinus Rhythm, PVC ECG Interpretation: No Changes From Prior Interpretation Of ECG: LVH, PVC, left ventricular repolarization Rate From EC (bpm) O2 Sat by Pulse Oximetry: 98 (RA) Progress Note: Labs ordered and reviewed. Patient received Benadryl IV, Pepcid IV, and Solu-Medrol IV. Medical Decision Making Medical Decision Makin pt resting comfortably no changes 1953 pt now c/o some chest tightness. ecg, cxr, trop ordered. 2156 dr archibald is here to eval the pt. will admit for obs. Disposition - Disposition Disposition Time: 21:56 Condition: GUARDED - Clinical Impression Clinical Impression: Angioedema - Scribe Statement The provider has reviewed the documentation as recorded by the Scribe (Lucy Ruiz) Provider Attestation: All medical record entries made by the Scribe were at my direction and personally dictated by me. I have reviewed the chart and agree that the record accurately reflects my personal performance of the history, physical exam, medical decision making, and the department course for this patient. I have also personally directed, reviewed, and agree with the discharge instructions and disposition.
[2016-12-01] MEDS ORDERED: DiphenhydrAMINE 50 mg/ml Inj IVP STA (19:04)
[2016-12-01 19:09] LABS: BASO # 0.1 K/uL (0.0-0.2); BASO % 0.8 % (0.0-2.0); EOS # 0.7 K/uL (0.0-0.7); EOS % 6.7 % (0.0-4.0); HEMATOCRIT 36.6 % (34.0-47.0); LYMPH # 2.1 K/uL (1.0-4.3); LYMPH % 21.1 % (20.0-40.0); MEAN CELL VOLUME 90.9 fL (81.0-99.0); MEAN CORPUSCULAR HEMOGLOBIN 29.6 pg (27.0-31.0); MEAN CORPUSCULAR HGB CONC 32.6 g/dL (33.0-37.0); MONO # 0.8 K/uL (0.0-0.8); MONO % 8.1 % (0.0-10.0); NRBC % 0.1 % (0.0-2.0); RED CELL DISTRIBUTION WIDTH 14.7 % (11.5-14.5)
[2016-12-01] MEDS ORDERED: DiphenhydrAMINE 50 mg/ml Inj ONE (19:09)
[2016-12-01 19:13] LABS: POTASSIUM 4.5 mmol/L (3.6-5.2)
[2016-12-01 19:15] LABS: BILIRUBIN,TOTAL 0.3 mg/dL (0.2-1.3)
[2016-12-01 19:16] LABS: ALB/GLOB RATIO 1.1 (1.0-2.1); CALCIUM 9.3 mg/dl (8.6-10.4); TOTAL PROTEIN 7.2 g/dL (6.3-8.3)
[2016-12-01] MEDS ORDERED: Nitroglycerin 2% Ointment Foilpak UD TOP ONE (23:16)
[2016-12-01] MEDS ORDERED: MethylPREDNISolone 40 mg Vial ONE (23:17)
[2016-12-01] MEDS: Nitroglycerin 2% Ointment Foilpak UD TOP SCH (23:24)
[2016-12-01] MEDS: MethylPREDNISolone 40 mg Vial IVP SCH (23:25)
[2016-12-02] MEDS ORDERED: Nitroglycerin 2% Ointment Foilpak UD TOP ONE (05:16)
[2016-12-02] MEDS: Nitroglycerin 2% Ointment Foilpak UD TOP SCH ×2 (05:22→11:12)
[2016-12-02] MEDS ORDERED: MethylPREDNISolone 40 mg Vial ONE (06:17)
[2016-12-02] MEDS: MethylPREDNISolone 40 mg Vial IVP SCH ×3 (06:21→22:38)
[2016-12-02 09:14] LABS: RBC URINE < 1 /hpf (0-3); URINE BILIRUBIN NEGATIVE (NEGATIVE); URINE BLOOD NEGATIVE (NEGATIVE); URINE COLOR Yellow (YELLOW); URINE GLUCOSE (UA) NORMAL (Normal); URINE KETONE NEGATIVE (NEGATIVE); URINE LEUKOCYTE ESTERASE NEG Leu/uL (Negative); URINE PROTEIN NEGATIVE (NEGATIVE); URINE UROBILINOGEN NORMAL mg/dL (0.2-1.0); WBC URINE 1 /hpf (0-5)
--- NOTE | 2016-12-02 11:00 | RAD ---
HISTORY: Chest pain COMPARISON: 12/01/2016 at 8:59 a.m. FINDINGS: LUNGS: The right lung is clear. There is left retrocardiac opacity with loss of diaphragmatic silhouette. PLEURA: There is a small left pleural effusion. There is no large right pleural effusion. No pneumothorax. CARDIOVASCULAR: The heart is normal in size. Atherosclerotic aortic arch calcifications are present. OSSEOUS STRUCTURES: Within normal limits for the patient's age. VISUALIZED UPPER ABDOMEN: Normal. OTHER FINDINGS: None. IMPRESSION: Small left pleural effusion. Underlying atelectasis/ pneumonia is suspected.
[2016-12-02 15:06] VITALS: RESP 20
[2016-12-02 15:11] LABS: CHLORIDE 97 mmol/L (98-107)
[2016-12-02 15:12] LABS: POTASSIUM 4.7 mmol/L (3.6-5.2); SODIUM 139 mmol/L (132-148)
[2016-12-02 15:15] LABS: ALB/GLOB RATIO 1.1 (1.0-2.1); ALKALINE PHOSPHATASE 91 U/L (38-126); ALT/SGPT 16 U/L (9-52); AST/SGOT 39 U/L (14-36); BILIRUBIN,TOTAL 0.1 mg/dL (0.2-1.3); BLOOD UREA NITROGEN 26 mg/dL (7-17); CALCIUM 9.4 mg/dl (8.6-10.4); CARBON DIOXIDE 23 mmol/L (22-30); GFR AFRICAN-AMERICAN 43; GLUCOSE,RANDOM 156 mg/dL (65-105); TOTAL PROTEIN 7.4 g/dL (6.3-8.3)
[2016-12-02] MEDS ORDERED: Albuterol-Ipratrop 3 mg / 0.5 (3 ml) UD INH PRN (15:43)
--- NOTE | 2016-12-02 21:37 | HP ---
The patient is an 86-year-old female recently admitted, who came to the my office after being dischar [facility]. THE PATIENT WAS FOUND TO HAVE SWELLING OF THE LIP AND THE PATIENT CLAIMED HAVING SOME SPINACH A ND ALSO HAVE TAKEN LISINOPRIL PRIOR TO DISCHARGE. So, the patient was found to have the swelling of the face, but denies any dizziness or any hoarseness. The patient was advised to go to the Emergency Room for evaluation, and the patient was admitted. ALLERGIES: At the time of admission, the patient had no known allergy. SOCIAL HISTORY: No history of smoking or alcohol abuse. FAMILY HISTORY: No inherited disease. REVIEW OF SYSTEMS: RESPIRATORY SYSTEM: Denies any shortness of breath. CARDIOVASCULAR: No chest pain, no palpitation. GASTROINTESTINAL: The patient having some discomfort in the lip. GENITOURINARY: No dysuria. The patient denied any weakness. PHYSICAL EXAMINATION: The patient is alert, awake, and oriented x 3. Blood pressure 168/88, pulse is 87, respiration is 20, temperature 97.2. HEAD: Some swelling of the lips and both sides of the face. Tongue: No swelling of the tongue. No hoarseness. NECK: Supple, and there is no stridor. LUNGS: Clear. HEART: Regular rate and rhythm. ABDOMEN: Soft, positive bowel sounds, nontender, no palpable mass. EXTREMITIES: There is no edema. SKIN: There is no petechia, no rash. The patient had some lab tests done. WBC is 10, hemoglobin 11.9, hematocrit is 36.6, and platelet is 201. Chemistry: Sodium 139, potassium 4.7, chloride 97, bicarb 23, BUN 26, creatinine 1.4, and glu cose , calcium 9.4. AST 39, ALT 16, alkaline phosphatase 91. Total bilirubin is 7.4, albumin 3 .9, and globulin 3.4. Coag: PT is 10.7, INR 1, and PTT 34. IMPRESSION: ALLERGIC REACTION PROBABLY DUE TO LISINOPRIL, and hypertension, and arthritis. PLAN: The patient was admitted to telemetry and will have Solu-Medrol 40 mg IV q. 8 hours, and also the patient will have Proventil nebulizer, and also will have Benadryl every 8 hours. Case was reviewed and discussed with Kanwal Calix. Jeb Hart MD cc: [id number] TT: 12/02/2016 21:36:53 [facility] # [id number] jn
[2016-12-03] MEDS: MethylPREDNISolone 40 mg Vial IVP SCH ×3 (06:13→22:32)
[2016-12-03 06:33] LABS: POTASSIUM 4.8 mmol/L (3.6-5.2)
[2016-12-03 06:48] LABS: HEMATOCRIT 34.8 % (34.0-47.0); LYMPH % 6.9 % (20.0-40.0); MEAN CELL VOLUME 90.8 fL (81.0-99.0); MEAN CORPUSCULAR HEMOGLOBIN 29.6 pg (27.0-31.0); MEAN CORPUSCULAR HGB CONC 32.6 g/dL (33.0-37.0); MEAN PLATELET VOLUME 9.1 fL (7.2-11.7); MONO # 0.3 K/uL (0.0-0.8); MONO % 2.5 % (0.0-10.0); PLATELET COUNT 333 K/uL (130-400)
[2016-12-03 08:29] LABS: NEUTROPHIL 94 % (50-75); TOTAL CELLS COUNTED 100
[2016-12-03] MEDS ORDERED: Dextrose 5%/0.45% NS 1,000 ML IV SCH (17:00)
[2016-12-03] MEDS: Sodium Chloride 0.45% 1,000 ML IV SCH (17:19)
--- NOTE | 2016-12-03 21:07 | PN ---
DATE: 12/03/2016 PHYSICAL EXAMINATION: GENERAL: Today, the patient is alert and awake, with shortness of breath. No dizziness. Also, no p ruritus. VITAL SIGNS: The patient has a blood pressure of 135/80, pulse is 76, respirations 20, temperature i s 97.8. HEAD: There is marked decrease of the edema involving the face, mainly the cheek and the lips. NECK: Supple. LUNGS: Clear. No rales, no wheezing. HEART: Regular rate and rhythm. Positive murmur. ABDOMEN: Soft, nontender. EXTREMITIES: There is no edema. SKIN: There is no evidence of rashes. PLAN: We are going to decrease the Solu-Medrol from 40 q. 8 hours to 40 q. 12 hours. Benadryl will be given q. 8 hours. We are going to continue also the albuterol treatment and also the famotidine. So, the case again was discussed with Kanwal Calix, the nurse practitioner. Jeb Hart MD cc: [id number] TT: 12/03/2016 21:06:29 Confirmation # [id number] Dictation # [id number] rah
[2016-12-04] MEDS: MethylPREDNISolone 40 mg Vial IVP SCH ×2 (06:15→17:46)
[2016-12-04 06:27] LABS: CALCIUM 8.5 mg/dl (8.6-10.4)
[2016-12-04 06:37] LABS: BASO % 0.1 % (0.0-2.0); HEMATOCRIT 35.8 % (34.0-47.0); LYMPH # 0.6 K/uL (1.0-4.3); LYMPH % 4.7 % (20.0-40.0); MEAN CELL VOLUME 91.8 fL (81.0-99.0); MEAN CORPUSCULAR HGB CONC 32.7 g/dL (33.0-37.0); MEAN PLATELET VOLUME 8.9 fL (7.2-11.7); MONO # 0.3 K/uL (0.0-0.8); MONO % 2.5 % (0.0-10.0); PLATELET COUNT 325 K/uL (130-400); WHITE BLOOD COUNT 13.1 K/uL (4.8-10.8)
[2016-12-04 08:45] LABS: NEUTROPHIL 95 % (50-75); TOTAL CELLS COUNTED 100
[2016-12-04] MEDS ORDERED: MethylPREDNISolone 40 mg Vial IVP SCH ×2 (10:00→18:00)
[2016-12-04] MEDS: Sodium Chloride 0.45% 1,000 ML IV SCH (13:21)
--- NOTE | 2016-12-04 22:19 | PN ---
DATE: 12/04/2016 The patient is more alert and awake. He feels somewhat weak and denies any shortness of breath, no c hest pain, no palpitation, no dizziness. The patient has a blood pressure of 136/68, pulse 69, respi rations 20, temperature 98.9. NECK: Supple. No JVD. LUNGS: Clear. HEART: Regular rate and rhythm. Positive murmur. ABDOMEN: Soft. EXTREMITIES: No edema. The face has marked decreased swelling of the face. LABORATORY DATA: The patient had some tests done. WBC is 13.1, hemoglobin 11.7, hematocrit 35.8, an d platelet is 325. Chemistry: Sodium 140, potassium 4, chloride 101, bicarbonate 24, BUN 32, creatin ine 1.2, glucose is 161, calcium 8.5. PLAN: We are going to decrease the Solu-Medrol to 20 mg IV q. 12 hours and also we are going to decr ease the Benadryl at 12 mg q. 12 hours. The labs will be repeated. The case was reviewed and discussed with Hailey. Jeb Hart MD cc: [id number] TT: 12/04/2016 22:19:25 Confirmation # [id number] Dictation # [id number]
[2016-12-05] MEDS: MethylPREDNISolone 40 mg Vial IVP SCH (05:52)
[2016-12-05] MEDS: Sodium Chloride 0.45% 1,000 ML IV SCH (09:00)
[2016-12-05 12:08] LABS: BASO % 0.1 % (0.0-2.0); HEMATOCRIT 38.1 % (34.0-47.0); LYMPH # 0.5 K/uL (1.0-4.3); LYMPH % 4.2 % (20.0-40.0); MEAN CELL VOLUME 91.8 fL (81.0-99.0); MEAN CORPUSCULAR HEMOGLOBIN 28.9 pg (27.0-31.0); MEAN CORPUSCULAR HGB CONC 31.5 g/dL (33.0-37.0); MEAN PLATELET VOLUME 9.2 fL (7.2-11.7); MONO # 0.4 K/uL (0.0-0.8); MONO % 3.3 % (0.0-10.0); NRBC % 0.1 % (0.0-2.0); PLATELET COUNT 343 K/uL (130-400); RED CELL DISTRIBUTION WIDTH 15.1 % (11.5-14.5); WHITE BLOOD COUNT 12.9 K/uL (4.8-10.8)
[2016-12-05 12:14] LABS: POTASSIUM 4.1 mmol/L (3.6-5.2)
[2016-12-05 12:17] LABS: CALCIUM 8.2 mg/dl (8.6-10.4)
[2016-12-05 12:29] LABS: NEUTROPHIL 86 % (50-75); TOTAL CELLS COUNTED 100
--- NOTE | 2016-12-05 13:52 | CP.PCM.PN ---
Subjective - Date & Time of Evaluation Date of Evaluation: 12/05/16 Time of Evaluation: 10:25 - Subjective Subjective: Pt seen today with Dr. Hart , NAD, comfortable , face swelling improved Objective - Vital Signs/Intake and Output Vital Signs (last 24 hours): Temp Pulse Resp BP Pulse Ox 97.5 F L 63 20 183/103 H 96 12/05/16 07:00 12/05/16 12:17 12/05/16 07:00 12/05/16 12:17 12/05/16 12:17 Intake and Output: 12/05/16 12/05/16 06:59 18:59 Intake Total 640 Balance 640 - Medications Medications: Current Medications Acetaminophen (Tylenol 325mg Tab) 650 mg PO Q6 PRN PRN Reason: Pain, moderate (4-7) Last Admin: 12/03/16 20:31 Dose: 650 mg Albuterol/Ipratropium (Duoneb 3 Mg/0.5 Mg (3 Ml) Ud) 3 ml INH RQ6 PRN PRN Reason: Shortness of Breath Amlodipine Besylate (Norvasc) 10 mg PO DAILY [facility] Last Admin: 12/05/16 10:00 Dose: 10 mg Diphenhydramine HCl (Benadryl) 25 mg PO Q12 [facility] Last Admin: 12/05/16 10:00 Dose: 25 mg Famotidine (Pepcid) 20 mg IVP DAILY [facility] Last Admin: 12/05/16 10:00 Dose: 20 mg Heparin Sodium (Porcine) (Heparin) 5,000 units SC Q12 [facility] Last Admin: 12/05/16 10:00 Dose: 5,000 units Sodium Chloride (Sodium Chloride 0.45%) 1,000 mls @ 50 mls/hr IV .Q20H [facility] Last Admin: 12/05/16 09:00 Dose: 50 mls/hr Methylprednisolone (Solu-Medrol) 20 mg IVP Q12H [facility] Last Admin: 12/05/16 05:52 Dose: 20 mg - Labs Labs: 12/05/16 11:58 12/05/16 11:58 PT 10.7 SECONDS (9.7-12.2) 12/02/16 08:50 INR 1.0 12/02/16 08:50 APTT 34 SECONDS (21-34) 03/21/17 08:50 Assessment and Plan - Assessment and Plan (Free Text) Assessment: A/P 86 yr old female admitted for angioedema vss- stable labs- cr. 1.2 Dr. Hart cleared patient for discharge home today and f/u with his office in 1 week
[2016-12-05 16:46] VITALS: BP 127/79; PULSE 71; TEMP 98; O2SAT 98
--- NOTE | 2016-12-05 18:05 | PN ---
DATE: 12/05/2016 SUBJECTIVE: Today, the patient is more alert and awake and denies any dizziness. No shortness of br eath and also no palpitations. PHYSICAL EXAMINATION: VITAL SIGNS: The patient has a blood pressure of 127/79, pulse rate is 71, respirations 20, temperat ure 98, and O2 sat is 98% on room air. HEENT: The mouth shows decrease of the swelling. Almost the face went to normal size. There is no swelling of the tongue. NECK: Supple. No stridor. LUNGS: Clear. HEART: Regular rate and rhythm. ABDOMEN: Soft and nontender. EXTREMITIES: There is no edema. LABORATORY DATA: Shows WBC 12.9, hemoglobin 12, hematocrit 38.1, and platelets 243. Chemistry: Sod ium 139, potassium 4.1, chloride 102, bicarb 23, BUN 38, creatinine 1.4, glucose 160, calcium 8.2. PLAN: We are going to discontinue the Solu-Medrol and the patient will be discharged home on prednis one 10 mg twice a day. The patient will come to see me within a week. Jeb Hart MD cc: [id number] TT: 12/05/2016 18:04:40 Confirmation # [id number] Dictation # [id number] mn
== END 2016-12-05 17:05 | disposition home or self-care (01) | DRG 916 ==
LOC: C.ER 18:19 → C.9E 21:57 → OBSVTOIN 22:55 → C.6T 12-02 13:17
PROVIDERS: ADMIT Specialist; ATTEND Specialist
DX: T78.3XXA Angioneurotic edema, initial encounter (principal); T46.4X5A Adverse effect of angiotensin-converting-enzyme inhibitors, initial encounter; I10 Essential (primary) hypertension; E78.5 Hyperlipidemia, unspecified

== ENCOUNTER 2017-02-18 15:08 | Emergency (ER) | payer MEDICARE, MEDICAID ==
[2017-02-18 15:24] VITALS: RESP 18; O2SAT 99; BMI 24.7
--- NOTE | 2017-02-18 16:07 | C.PDOC ---
History Of Present Illness 86 y/o female sent from PMD's office status post fall 3-4 days ago who states she injured her left knee and c/o left side pain. Patient denies head injury, LOC, new weakness, or new numbness. Patient also reports complaint of epigastric abdominal pain. Denies fever, chills, nausea, vomiting, diarrhea, or other associated symptoms. Time Seen by Provider: 02/18/17 15:45 Chief Complaint (Nursing): Lower Extremity Problem/Injury History Per: Patient History/Exam Limitations: no limitations Onset/Duration Of Symptoms: Days Current Symptoms Are (Timing): Still Present Reports Recently: Treated By A Physician Recent travel outside of the [place]: No Past Medical History Reviewed: Historical Data, Nursing Documentation, Vital Signs Vital Signs: Last Vital Signs Temp 97.4 F L 02/18/17 15:24 Pulse 61 02/18/17 15:24 Resp 18 02/18/17 15:24 BP 145/87 02/18/17 15:24 Pulse Ox 99 02/18/17 17:21 - Medical History PMH: Fractures (left wrist 3 weeks ago), HTN, Hypercholesterolemia, Hyperlipidemia Surgical History: Appendectomy - [facility] Procedures APPLICATION OF SPLINT (06/07/15) DRESSING OF WOUND NEC (04/23/13) TETANUS TOXOID ADMINIST (04/23/13) Family History: States: Unknown Family Hx - Social History Hx Tobacco Use: No Hx Alcohol Use: No Hx Substance Use: No - Immunization History Hx Tetanus Toxoid Vaccination: Yes Hx Influenza Vaccination: Yes Hx Pneumococcal Vaccination: Yes Review Of Systems Except As Marked, All Systems Reviewed And Found Negative. Constitutional: Negative for: Fever, Chills Cardiovascular: Negative for: Chest Pain Respiratory: Negative for: Cough, Shortness of Breath Gastrointestinal: Positive for: Abdominal Pain. Negative for: Nausea, Vomiting , Diarrhea Musculoskeletal: Positive for: Other (left knee pain ). Negative for: Neck Pain Skin: Negative for: Rash Neurological: Negative for: Headache, Dizziness Physical Exam - Physical Exam Appears: Non-toxic, No Acute Distress Skin: Normal Color, Warm, Dry Head: Atraumatic, Normacephalic Chest: Symmetrical Cardiovascular: Rhythm Regular Respiratory: Normal Breath Sounds, No Rales, No Rhonchi, No Wheezing Gastrointestinal/Abdominal: Soft, Tenderness (epigastric), No Distention, No Guarding, No Rebound Back: Normal Inspection Extremity: Normal ROM, No Tenderness, Capillary Refill (< 2 sec.), No Deformity , Swelling (left lateral knee) Extremity: Bilateral: Normal Color And Temperature Neurological/Psych: Oriented x3, Normal Speech, Normal Cognition ED Course And Treatment - Laboratory Results Result Diagrams: 02/18/17 16:17 02/18/17 16:17 Lab Interpretation: Normal ECG: Interpreted By Me ECG Rhythm: Sinus Rhythm, Nonspecific Changes ECG Interpretation: No Acute Changes Rate From EC O2 Sat by Pulse Oximetry: 99 (RA) Pulse Ox Interpretation: Normal - Radiology CXR: Interpreted by Me CXR Interpretation: Yes: No Acute Disease - Other Rad Left Knee XR X-Ray: Viewed By Me, Read By Radiologist Interpretation: No evidence of acute displaced fracture nor dislocation. . There is a moderate anterior soft tissue swelling and small suprapatellar joint effusion Progress Note: CxR, Left knee x-ray, EKG, bloodwork ordered. Treated with IVFs. sheila bandage applied to left knee. On re-evaluation, abdomen soft non-tender. Felling better, hungry wants to go home Reassessment Condition: Improved Disposition Counseled Patient/Family Regarding: Studies Performed, Diagnosis, Need For Followup, Rx Given - Disposition Referrals: [facility] [Outside] [facility] [Outside] Disposition: HOME/ ROUTINE Disposition Time: 18:00 Condition: IMPROVED Additional Instructions: Follow up with PMD or clinic for further evaluation Tylenol as needed for pain Instructions: Knee Pain (ED), Knee Exercises (GEN), Epigastric Pain (ED), Swollen Joint (ED) Print Language: SLOVENIAN - POA Present On Arrival: None - Clinical Impression Clinical Impression: Epigastric pain, Fall, accidental, Knee pain - PA / MANAGER CLINICAL APPLICATIONS / Resident Statement MD/DO has reviewed & agrees with the documentation as recorded. - Scribe Statement The provider has reviewed the documentation as recorded by the Parmjit CHRISTIANSEN All medical record entries made by the Scribe were at my direction and personally dictated by me. I have reviewed the chart and agree that the record accurately reflects my personal performance of the history, physical exam, medical decision making, and the department course for this patient. I have also personally directed, reviewed, and agree with the discharge instructions and disposition.
[2017-02-18 16:21] LABS: BASO % 0.6 % (0.0-2.0); EOS # 0.3 K/uL (0.0-0.7); EOS % 4.1 % (0.0-4.0); HEMATOCRIT 41.6 % (34.0-47.0); LYMPH # 1.9 K/uL (1.0-4.3); LYMPH % 29.4 % (20.0-40.0); MEAN CELL VOLUME 91.7 fL (81.0-99.0); MEAN CORPUSCULAR HEMOGLOBIN 29.8 pg (27.0-31.0); MEAN CORPUSCULAR HGB CONC 32.5 g/dL (33.0-37.0); MEAN PLATELET VOLUME 8.9 fL (7.2-11.7); MONO # 0.7 K/uL (0.0-0.8); MONO % 10.3 % (0.0-10.0); RED CELL DISTRIBUTION WIDTH 15.3 % (11.5-14.5); WHITE BLOOD COUNT 6.5 K/uL (4.8-10.8)
[2017-02-18 16:30] LABS: CHLORIDE 105 mmol/L (98-107); SODIUM 141 mmol/L (132-148)
[2017-02-18 16:31] LABS: POTASSIUM 3.5 mmol/L (3.6-5.2)
[2017-02-18 16:33] LABS: ALB/GLOB RATIO 1.3 (1.0-2.1); ALKALINE PHOSPHATASE 95 U/L (38-126); ALT/SGPT 18 U/L (9-52); AST/SGOT 23 U/L (14-36); BILIRUBIN,TOTAL 0.4 mg/dL (0.2-1.3); BLOOD UREA NITROGEN 17 mg/dL (7-17); CARBON DIOXIDE 25 mmol/L (22-30); GFR AFRICAN-AMERICAN > 60; GLUCOSE,RANDOM 91 mg/dL (65-105); TOTAL PROTEIN 6.8 g/dL (6.3-8.3)
[2017-02-18 16:34] LABS: CALCIUM 9.2 mg/dl (8.6-10.4)
[2017-02-18] MEDS: Sodium Chloride 0.9% 1,000 ML IV SCH (16:51)
--- NOTE | 2017-02-18 16:52 | RAD ---
PROCEDURE: Left Knee Radiographs. HISTORY: Pain. COMPARISON: None. FINDINGS: BONES: No evidence of acute displaced fracture nor dislocation. The osseous structures intact so far as can be seen. Mild degenerative osteoarthritis with slight spurring of the medial tibial spine and small anterior superior patellar enthesophyte. . There is moderate anterior soft tissue swelling with small joint effusion. Consider follow-up MRI if pain persists, occult fracture or internal derangement suspected clinically. Note made of an elliptical shaped sclerotic density within the left lateral femoral metaphysis that probably represents an incidental bone island or osteoma. JOINTS: As above JOINT EFFUSION: As above. OTHER FINDINGS: Vascular calcifications are present IMPRESSION: No evidence of acute displaced fracture nor dislocation. . There is a moderate anterior soft tissue swelling and small suprapatellar joint effusion. Mild DJD.
[2017-02-18] MEDS: Alum-Mag Hydrox-Simethicone Susp (30 mL) PO STA (17:22)
[2017-02-18] MEDS ORDERED: Alum-Mag Hydrox-Simethicone Susp (30 mL) ONE (17:26)
[2017-02-18 17:31] LABS: RBC URINE < 1 /hpf (0-3); TRANSITIONAL EPITHIAL < 1 /hpf (0-3); URINE BACTERIA RARE (<OCC); URINE BILIRUBIN NEGATIVE (NEGATIVE); URINE BLOOD NEGATIVE (NEGATIVE); URINE COLOR Straw (YELLOW); URINE GLUCOSE (UA) NORMAL (Normal); URINE KETONE NEGATIVE (NEGATIVE); URINE LEUKOCYTE ESTERASE NEG Leu/uL (Negative); URINE PROTEIN NEGATIVE (NEGATIVE); URINE UROBILINOGEN NORMAL mg/dL (0.2-1.0); WBC URINE 1 /hpf (0-5)
[2017-02-18 17:54] VITALS: BP 138/60; PULSE 72; TEMP 97.6
--- NOTE | 2017-02-18 18:26 | RAD ---
HISTORY: SOB COMPARISON: Comparison chest 12/01/2016 TECHNIQUE: Chest PA and lateral. FINDINGS: LUNGS: Mild bibasilar atelectasis left greater than right. Developing lower lobe infiltrates could be excluded with follow-up radiographs. Mild hyperinflation ; rule out chronic changes of COPD or emphysema. . Tiny left-sided effusion not excluded. PLEURA: No apparent pneumothorax apparent. CARDIOVASCULAR: Normal. OSSEOUS STRUCTURES: Questionable old healed right posterolateral rib fracture. Minor multilevel degenerative spondylosis of the thoracic spine. There is also a subtle dextroscoliosis in the upper/mid thoracic region. VISUALIZED UPPER ABDOMEN: Normal. OTHER FINDINGS: None. IMPRESSION: Mild bibasilar atelectasis left greater than right. Developing lower lobe infiltrates could be excluded with follow-up radiographs. Mild hyperinflation ; rule out chronic changes of COPD or emphysema. . Tiny left-sided effusion not excluded.
--- NOTE | 2017-02-20 12:19 | CARD ---
APPROVED REPORT EKG Measurement Heart [id number] <Conclusion> Normal sinus rhythm with sinus arrhythmia ST & T wave abnormality, consider anterolateral ischemia Abnormal ECG
== END 2017-02-18 17:54 | disposition home or self-care (01) ==
LOC: C.ER 15:08
DX: M25.562 Pain in left knee (principal); W01.0XXA Fall on same level from slipping, tripping and stumbling without subsequent striking against object, initial encounter; Y93.89 Activity, other specified; Y92.89 Other specified places as the place of occurrence of the external cause; R10.13 Epigastric pain
CPT/HCPCS: 71020; 73562; 80053; 81001; 82553; 83690; 84484; 85025; 93005; 99285; J7040

== ENCOUNTER 2017-04-17 14:06 | Emergency (ER) | payer MEDICARE, MEDICAID ==
[2017-04-17 14:33] VITALS: BMI 26.4
[2017-04-17 14:48] VITALS: TEMP 97.4
[2017-04-17 15:55] LABS: SQUAMOUS EPITHIAL < 1 /hpf (0-5); URINE BILIRUBIN 1+ (NEGATIVE); URINE BLOOD NEGATIVE (NEGATIVE); URINE CLARITY Clear (Clear); URINE COLOR Yellow (YELLOW); URINE GLUCOSE (UA) NORMAL (Normal); URINE LEUKOCYTE ESTERASE NEG Leu/uL (Negative); URINE NITRATE NEGATIVE (NEGATIVE); URINE PROTEIN NEGATIVE (NEGATIVE)
--- NOTE | 2017-04-17 16:08 | RAD ---
PROCEDURE: Radiographs of the Lumbar Spine. HISTORY: r/o fx COMPARISON: No prior. FINDINGS: BONES: Vertebral bodies maintained height. Normal alignment maintained. Transverse processes and posterior elements are grossly intact. DISC SPACES: There is narrowing of the L2-3 and L5-S1 disc spaces with osteophyte formation, consistent with degenerative disc disease. There is vacuum disc phenomenon seen at L 2-3 through L5-S1. OTHER FINDINGS: None. IMPRESSION: Degenerative disc disease L2-3 and L5-S1. No evidence of fracture or dislocation.
--- NOTE | 2017-04-17 16:09 | RAD ---
PROCEDURE: Left Knee Radiographs. HISTORY: Pain. COMPARISON: None. FINDINGS: BONES: Normal. No fracture. JOINTS: Moderate tricompartmental osteoarthritis. No articular erosion. JOINT EFFUSION: None. OTHER FINDINGS: None. IMPRESSION: Moderate tricompartmental osteoarthritis.
[2017-04-17 17:06] VITALS: BP 132/85; PULSE 75; RESP 16; O2SAT 98
--- NOTE | 2017-04-17 17:34 | C.PDOC ---
History Of Present Illness 86 yr old female presents to the ER with complaints of diffuse body pains for the past 6 days. Patient states the pain is mostly in the lower back and left knee. Denies injury, chest pain, SOB, cough, nausea, vomiting, abdominal pain, dysuria, hematuria, weakness or numbness, Time Seen by Provider: 04/17/17 15:30 Chief Complaint (Nursing): Back Pain History Per: Patient History/Exam Limitations: no limitations Onset/Duration Of Symptoms: Days (6) Past Medical History Reviewed: Historical Data, Nursing Documentation, Vital Signs Vital Signs: Last Vital Signs Temp 97.4 F L 04/17/17 14:34 Pulse 75 04/17/17 17:05 Resp 16 04/17/17 17:05 BP 132/85 04/17/17 17:05 Pulse Ox 98 04/17/17 17:54 - Medical History PMH: Fractures (left wrist 3 weeks ago), HTN, Hypercholesterolemia, Hyperlipidemia Surgical History: Appendectomy - [facility] Procedures APPLICATION OF SPLINT (06/07/15) DRESSING OF WOUND NEC (04/23/13) TETANUS TOXOID ADMINIST (04/23/13) Family History: States: No Known Family Hx - Social History Hx Tobacco Use: No Hx Alcohol Use: No Hx Substance Use: No - Immunization History Hx Tetanus Toxoid Vaccination: Yes Hx Influenza Vaccination: Yes Hx Pneumococcal Vaccination: Yes Review Of Systems Except As Marked, All Systems Reviewed And Found Negative. Constitutional: Positive for: Other ((+) Diffuse body pains ) Cardiovascular: Negative for: Chest Pain Respiratory: Negative for: Cough, Shortness of Breath Gastrointestinal: Negative for: Nausea, Vomiting, Abdominal Pain Genitourinary: Negative for: Dysuria, Hematuria Musculoskeletal: Positive for: Back Pain (Lower back ), Other ((+) Left knee ) Neurological: Negative for: Weakness, Numbness Physical Exam - Physical Exam Appears: Non-toxic, No Acute Distress Skin: Warm, Dry, No Rash Head: Atraumatic, Normacephalic Oral Mucosa: Moist Chest: Symmetrical, No Tenderness Cardiovascular: Rhythm Regular, No Murmur Respiratory: Normal Breath Sounds, No Rales, No Rhonchi, No Stridor, No Wheezing Gastrointestinal/Abdominal: Normal Exam, Soft, No Tenderness, No Guarding, No Rebound Back: Normal Inspection, No CVA Tenderness Extremity: Normal ROM, No Swelling Neurological/Psych: Oriented x3, Normal Speech, Normal Motor ED Course And Treatment O2 Sat by Pulse Oximetry: 98 (RA ) Pulse Ox Interpretation: Normal - Other Rad X-Ray - Lumbar Spine X-Ray: Viewed By Me, Read By Radiologist Interpretation: PROCEDURE: Radiographs of the Lumbar Spine. HISTORY: r/o fx. COMPARISON: No prior. FINDINGS: BONES: Vertebral bodies maintained height. Normal alignment maintained. Transverse processes and posterior elements are grossly intact. DISC SPACES: There is narrowing of the L2-3 and L5-S1 disc spaces with osteophyte formation, consistent with degenerative disc disease. There is vacuum disc phenomenon seen at L 2-3 through L5-S1. OTHER FINDINGS: None. IMPRESSION: Degenerative disc disease L2-3 and L5-S1. No evidence of fracture or dislocation. X-Ray - Left Knee X-Ray: Viewed By Me, Read By Radiologist Interpretation: PROCEDURE: Left Knee Radiographs. HISTORY: Pain. COMPARISON : None. FINDINGS: BONES: Normal. No fracture. JOINTS: Moderate tricompartmental osteoarthritis. No articular erosion. JOINT EFFUSION: None. OTHER FINDINGS: None. IMPRESSION: Moderate tricompartmental osteoarthritis. Medical Decision Making Medical Decision Making: PLAN: * X-Ray - Left Knee, LS Spine * Urinalysis * Motrin PO Disposition - Disposition Referrals: [facility] Ashu Love, [Non-Staff] - Disposition: HOME/ ROUTINE Disposition Time: 16:25 Condition: GOOD Additional Instructions: Thank you for letting us take care of you today. Your provider was Dr. Dalton. You were treated for osteoarthritis. The emergency medical care you received today was directed at your acute symptoms. If you were prescribed any medication, please fill it and take as directed. It may take several days for your symptoms to resolve. Return to the Emergency Department if your symptoms worsen, do not improve, or if you have any other problems. Please contact your doctor or call one of the physicians/clinics you have been referred to that are listed on the Patient Visit Information form that is included in your discharge packet. Bring any paperwork you were given at discharge with you along with any medications you are taking to your follow up visit. Our treatment cannot replace ongoing medical care by a primary care provider (PCP) outside of the emergency department. Thank you for allowing the [facility] team to be part of your care today. Follow up with your doctor in 2-3 days for re-evaluation and further management. Prescriptions: Cyclobenzaprine [Cyclobenzaprine HCl] 10 mg PO Q8 PRN #20 tab PRN Reason: Muscle Spasm Ibuprofen [Motrin] 600 mg PO Q6 PRN #20 tab PRN Reason: Pain, Moderate (4-7) Instructions: Osteoarthritis (ED) Forms: Gen Discharge Inst Turkish, [employer] (Turkish) Print Language: EGYPTIAN - Clinical Impression Clinical Impression: Arthritis, Low back pain - Scribe Statement The provider has reviewed the documentation as recorded by the Parmjit Ryan Provider Attestation: All medical record entries made by the Parmjit were at my direction and personally dictated by me. I have reviewed the chart and agree that the record accurately reflects my personal performance of the history, physical exam, medical decision making, and the department course for this patient. I have also personally directed, reviewed, and agree with the discharge instructions and disposition.
== END 2017-04-17 17:05 | disposition home or self-care (01) ==
LOC: C.ER 14:06
DX: M17.12 Unilateral primary osteoarthritis, left knee (principal); M54.5 Low back pain

== ENCOUNTER 2017-11-27 13:26 | Inpatient (IN) | payer MEDICARE, MEDICAID ==
[2017-11-27 13:36] VITALS: BMI 27.3
--- NOTE | 2017-11-27 14:03 | C.PDOC ---
History Of Present Illness 87 year old female with PMHx of HTN is sent to the ED from his Dr. Hart's office for evaluation of SOB. As per Dr. Hart while in the office she was sating in the low 90s high 80s. Patient c/o SOB on exertion that has been going on since Thursday, patient recently returned from [facility]. Patient denies CP, headache, dizziness, abdominal pain, leg swelling. Chief Complaint (Nursing): Shortness Of Breath History Per: Patient, Family History/Exam Limitations: no limitations Onset/Duration Of Symptoms: Days Current Symptoms Are (Timing): Still Present Exacerbating Factor(s): Exertion Current Respiratory Medications: See Home Med List Recent travel outside of the [place]: No Additional History Per: Patient Past Medical History Reviewed: Historical Data, Nursing Documentation, Vital Signs Vital Signs: Last Vital Signs Temp 97.6 F 11/27/17 13:36 Pulse 85 11/27/17 16:50 Resp 20 11/27/17 16:50 BP 161/98 H 11/27/17 16:50 Pulse Ox 100 11/27/17 16:50 - Medical History PMH: Fractures (left wrist 3 weeks ago), HTN, Hypercholesterolemia, Hyperlipidemia Surgical History: Appendectomy - [facility] Procedures APPLICATION OF SPLINT (06/07/15) DRESSING OF WOUND NEC (04/23/13) TETANUS TOXOID ADMINIST (04/23/13) Family History: States: Unknown Family Hx - Social History Hx Tobacco Use: No Hx Alcohol Use: No Hx Substance Use: No - Immunization History Hx Tetanus Toxoid Vaccination: Yes Hx Influenza Vaccination: Yes Hx Pneumococcal Vaccination: Yes Review Of Systems Constitutional: Negative for: Fever, Chills Cardiovascular: Negative for: Chest Pain Respiratory: Positive for: Shortness of Breath, SOB with Excertion Gastrointestinal: Negative for: Nausea, Vomiting, Abdominal Pain Skin: Negative for: Rash Neurological: Negative for: Weakness, Numbness Physical Exam - Physical Exam Appears: Non-toxic, No Acute Distress Skin: Normal Color, Warm, Dry Head: Atraumatic, Normacephalic Eye(s): bilateral: Normal Inspection Nose: No Discharge Oral Mucosa: Moist Neck: Normal ROM, Supple Chest: Symmetrical Cardiovascular: Rhythm Regular, No Murmur Respiratory: Normal Breath Sounds, No Rales, No Rhonchi, No Wheezing, Other ( Tachypnic) Gastrointestinal/Abdominal: Soft, No Tenderness, No Guarding, No Rebound Extremity: Normal ROM, No Tenderness, Capillary Refill (< 2 seconds), No Swelling Pulses: Left Dorsalis Pedis: Normal, Right Dorsalis Pedis: Normal Neurological/Psych: Oriented x3 ED Course And Treatment - Laboratory Results Result Diagrams: 11/27/17 14:19 11/27/17 14:19 Lab Interpretation: Abnormal (BNP cw CHF) ECG: Interpreted By Me, Viewed By Me ECG Rhythm: Sinus Rhythm ECG Interpretation: No Changes From Prior Interpretation Of ECG: ST depression in V5 and V6, flipped ST in V3,4,5,6. T wave flattening in 3 and aVF, inverted in lead II. Rate From EC O2 Sat by Pulse Oximetry: 98 (On RA) Pulse Ox Interpretation: Normal - Radiology CXR Interpretation: Yes: Other (c/w CHF) - Other Rad CXR X-Ray: Viewed By Me, Read By Radiologist Interpretation: PROCEDURE: CHEST RADIOGRAPH, 1 VIEW. HISTORY: SOB. COMPARISON: 02/18/2017. FINDINGS: LUNGS: Pulmonary vascular congestion. PLEURA: Small right pleural effusion. CARDIOVASCULAR: Cardiomegaly/mild CHF. OSSEOUS STRUCTURES: No significant abnormalities. VISUALIZED UPPER ABDOMEN: Normal. OTHER FINDINGS: None. IMPRESSION: Mild CHF a new finding compared to the prior study. Medical Decision Making Medical Decision Making: Impression: SOB, rule out PE Plan: * CT angio chest * Labs * CXR * O2 nasal cannula Disposition - Disposition Disposition: HOSPITALIZED Disposition Time: 16:15 Condition: GUARDED - Clinical Impression Clinical Impression: Congestive heart failure - Scribe Statement The provider has reviewed the documentation as recorded by the Scribe Levon Dejesus All medical record entries made by the Scribe were at my direction and personally dictated by me. I have reviewed the chart and agree that the record accurately reflects my personal performance of the history, physical exam, medical decision making, and the department course for this patient. I have also personally directed, reviewed, and agree with the discharge instructions and disposition.
[2017-11-27 14:33] LABS: BASO % 0.3 % (0.0-2.0); EOS # 0.1 K/uL (0.0-0.7); EOS % 0.5 % (0.0-4.0); HEMOGLOBIN 12.5 g/dL (11.0-16.0); LYMPH # 1.4 K/uL (1.0-4.3); LYMPH % 12.1 % (20.0-40.0); MEAN CELL VOLUME 92.1 fL (81.0-99.0); MEAN CORPUSCULAR HEMOGLOBIN 30.8 pg (27.0-31.0); MEAN CORPUSCULAR HGB CONC 33.4 g/dL (33.0-37.0); MEAN PLATELET VOLUME 10.7 fL (7.2-11.7); MONO # 0.9 K/uL (0.0-0.8); MONO % 7.6 % (0.0-10.0); NEUT # 9.4 K/uL (1.8-7.0); NEUT % 79.5 % (50.0-75.0); NRBC % 0.1 % (0.0-2.0); RBC 4.07 Mil/uL (3.80-5.20); RED CELL DISTRIBUTION WIDTH 15.1 % (11.5-14.5)
[2017-11-27 14:34] LABS: WHITE BLOOD COUNT 11.8 K/uL (4.8-10.8)
[2017-11-27 14:42] LABS: ALB/GLOB RATIO 1.1 (1.0-2.1); ALBUMIN 3.6 g/dL (3.5-5.0); CALCIUM 8.9 mg/dl (8.6-10.4)
[2017-11-27 14:49] LABS: TROPONIN I 0.025 ng/mL (0.00-0.120)
--- NOTE | 2017-11-27 16:03 | RAD ---
PROCEDURE: CHEST RADIOGRAPH, 1 VIEW HISTORY: SOB COMPARISON: 02/18/2017 FINDINGS: LUNGS: Pulmonary vascular congestion. PLEURA: Small right pleural effusion. CARDIOVASCULAR: Cardiomegaly/mild CHF. OSSEOUS STRUCTURES: No significant abnormalities. VISUALIZED UPPER ABDOMEN: Normal. OTHER FINDINGS: None. IMPRESSION: Mild CHF a new finding compared to the prior study.
[2017-11-27] MEDS ORDERED: Nitroglycerin 2% Ointment Foilpak UD TOP STA (16:16)
[2017-11-27] MEDS ORDERED: Nitroglycerin 2% Ointment Foilpak UD TOP ONE (16:24)
[2017-11-27] MEDS ORDERED: Nitroglycerin 50mg in D5W 50 MG/250 ML BOTTLE IV ONE (16:43)
[2017-11-27] MEDS: Nitroglycerin 50mg in D5W 50 MG/250 ML BOTTLE IV SCH ×2 (16:47→17:08)
[2017-11-27] MEDS ORDERED: Nitroglycerin 50mg in D5W 50 MG/250 ML BOTTLE IV SCH (17:00)
[2017-11-27] MEDS: Nitroglycerin 2% Ointment Foilpak UD TOP SCH ×2 (18:19→23:46)
[2017-11-27] MEDS: Magnesium Oxide 400 mg Tab UD PO SCH (18:56)
[2017-11-27 20:49] LABS: CK-MB 0.92 ng/mL (0.0-3.38); TROPONIN I 0.024 ng/mL (0.00-0.120)
[2017-11-28] MEDS: Nitroglycerin 2% Ointment Foilpak UD TOP SCH ×3 (06:12→17:25)
--- NOTE | 2017-11-28 06:29 | CON ---
DATE: CARDIOLOGY CONSULTATION REASON FOR CONSULTATION: Shortness of breath and abnormal EKG. HISTORY OF PRESENT ILLNESS: The patient is 87 years old female, who is sent from Dr. Hart's office for evaluation for shortness of breath. According to the patient's daughter, the patient experienced shortness of breath that worsened today and was reported to Dr. Hart's office for that. The patient denies any productive cough and is unaware of any fever or chills. SOCIAL HISTORY: The patient is a nonsmoker. She lives by herself with frequent visits from her son, who lives nearby. MEDICATIONS: The patient is currently on Crestor 20 mg at bedtime, Lasix 20 mg IV q.12 hours, mg IV push upon arrival to the emergency room. She is on nitroglycerin paste 1 inch q.6 hours, Protonix 40 mg once a day, Tylenol 650 mg q.6 hours p.r.n. for headache and is on Tridil infusion for uncontrolled hypertension. PHYSICAL EXAMINATION GENERAL: The patient is an elderly female, who is currently tachypneic, on Ventimask. VITAL SIGNS: Blood pressure 158/103, heart rate 96, temperature 97.6, respirations 26. HEENT: Normocephalic. NECK: Jugular venous distension is noted. CHEST: Bibasal coarse crepitations. HEART: S1 and S2 regular. Grade 3/6 ejection systolic murmur over left sternal border. ABDOMEN: Soft. EXTREMITIES: 1+ pitting edema. LABORATORY DATA: SMA-7: Sodium 142, potassium 4.8, chloride 104, CO2 of 24, glucose 114, BUN 27, and creatinine 1.7. ProBNP 13,100. D-dimer 637. CBC: WBC 11.8, hemoglobin 12.5, hematocrit 37.5, and platelet count 130,000. EKG revealed sinus rhythm at the rate of 81 and anterolateral ischemic Q-wave changes. Chest x-ray revealed mild cardiomegaly with moderate CHF, bilateral lower lobe pneumonia cannot be ruled out. Echocardiographic study was performed in 04/2015 revealed normal ejection fraction, and there was no valvular aortic stenosis at that time. ASSESSMENT: 1. Exacerbation of patient's heart failure. 2. Consider underlying bilateral pneumonia. 3. Rule out significant aortic stenosis. RECOMMENDATIONS: Continue current Tridil infusion. Continue IV Lasix 20 mg twice a day. I recommend initiating intravenous antibiotic therapy for presumptive pneumonia, before that I would request two sets of blood cultures. Obtain a bedside echocardiographic study. Patient is allergic to YOLANDA inhibitors Yoni Jorgensen MD JORGE
[2017-11-28 07:51] LABS: BASO % 0.3 % (0.0-2.0); EOS # 0.1 K/uL (0.0-0.7); EOS % 1.5 % (0.0-4.0); HEMOGLOBIN 11.5 g/dL (11.0-16.0); LYMPH # 0.9 K/uL (1.0-4.3); LYMPH % 9.4 % (20.0-40.0); MEAN CELL VOLUME 92.5 fL (81.0-99.0); MEAN CORPUSCULAR HEMOGLOBIN 31.2 pg (27.0-31.0); MEAN CORPUSCULAR HGB CONC 33.8 g/dL (33.0-37.0); MONO # 0.7 K/uL (0.0-0.8); MONO % 7.7 % (0.0-10.0); NEUT # 7.6 K/uL (1.8-7.0); NEUT % 81.1 % (50.0-75.0); RBC 3.68 Mil/uL (3.80-5.20); RED CELL DISTRIBUTION WIDTH 15.3 % (11.5-14.5); WHITE BLOOD COUNT 9.4 K/uL (4.8-10.8)
[2017-11-28 08:01] LABS: PLATELET COUNT 123 K/uL (130-400)
[2017-11-28 08:11] LABS: ALBUMIN 3.1 g/dL (3.5-5.0); CALCIUM 8.1 mg/dl (8.6-10.4)
[2017-11-28 08:58] LABS: ABG ALLEN TEST POS; ARTERIAL BLOOD GAS HCO3 24.2 mmol/L (21-28); ARTERIAL BLOOD GAS O2 SAT 99.3 % (95-98); ARTERIAL BLOOD GAS PCO2 37 mm/Hg (35-45); ARTERIAL BLOOD GAS PH 7.41 (7.35-7.45); ARTERIAL BLOOD GAS PO2 112 mm/Hg (80-100); ARTERIAL BLOOD GAS TCO2 24.6 mmol/L (22-28)
[2017-11-28] MEDS: Albuterol-Ipratrop 3 mg / 0.5 (3 ml) UD INH SCH ×3 (09:17→19:51)
[2017-11-28] MEDS: Magnesium Oxide 400 mg Tab UD PO SCH (09:37)
[2017-11-28] MEDS: Pantoprazole 40 mg EC Tab PO SCH (09:42)
[2017-11-28 10:03] LABS: EOSINOPHIL 1 % (0-4); NEUTROPHIL 82 % (50-75); TOTAL CELLS COUNTED 100
[2017-11-28 10:04] LABS: ANISOCYTOSIS SLIGHT; LYMPHOCYTE 12 % (20-40); MONOCYTE 5 % (0-10); PLATELET ESTIMATE SLIGHTLY DECREASED (NORMAL)
[2017-11-28 10:05] LABS: OVALOCYTES SLIGHT; TEARDROP CELLS SLIGHT
[2017-11-28] MEDS: Azithromycin 500 MG in Sodium Chloride 0.9% 250 ML IVPB SCH (10:26)
--- NOTE | 2017-11-28 12:07 | NM ---
COMPARISON: Comparison is made with previous chest x-ray dated 11/27/2017. No prior V/Q scan available for comparison. TECHNIQUE: 7.6 mCi technetium 99-m Xe-133 Gas. 3.5 mCI technetium 99-m MAA administered intravenously. FINDINGS: VENTILATION COMPONENT: Heterogeneous distribution of the radial tracer in the ventilation images. PERFUSION COMPONENT: No evidence of segmental or subsegmental mismatched perfusion defect. Heterogeneous distribution of the radiotracer in the perfusion noted. IMPRESSION: Lowprobability ventilation perfusion scan for pulmonary embolism.
--- NOTE | 2017-11-28 21:26 | PN ---
DATE: 11/28/2017 SUBJECTIVE: Today, the patient is alert and awake. She has some shortness of breath on exertion. No chest pain. No palpitation. PHYSICAL EXAMINATION: VITAL SIGNS: The patient has a blood pressure of 130/84, pulse 86, respiration is 18, and temperature is 98.3. NECK: Supple. No JVD. LUNGS: Some rales bilaterally at the bases. HEART: Regular rate and rhythm. Positive murmur. ABDOMEN: Soft and nontender, no palpable mass. EXTREMITIES: There is edema at the ankle. NEUROLOGIC: The patient is alert and awake. LABORATORY DATA: The patient has some labs done. The labs show a sodium of 142, potassium 4.1, chloride 106, bicarb 24, BUN 27, creatinine 1.5, glucose 103, albumin is 201, globulin 2.2. PLAN: We are going to continue the Lasix and we are going to increase the Lasix to 40 in the morning and 20 in the evening, and the patient will have an echocardiogram. The patient has uncontrolled hypertension, and we are going to pursue with blood test for tomorrow. Jeb Hart MD
--- NOTE | 2017-11-28 23:26 | PN ---
DATE: SUBJECTIVE: The patient's shortness of breath has improved. She is adequately diuresing. PHYSICAL EXAMINATION: VITAL SIGNS: Blood pressure 136/84, heart rate 86, temperature 98.3, respirations 18. HEENT: Normocephalic. CHEST: Minimal basilar rales. HEART: S1 and S2 regular. EXTREMITIES: No edema. LABORATORY DATA: I did review the echo, which revealed LVH with preserved systolic function, moderate to severe pulmonary hypertension. Today's BUN and creatinine 27 and 1.5. Rest of the SMA-7 is within normal limits. Today's hemoglobin 11.5 and hematocrit 34.1, white count 9.4, platelet count 123,000. Ventilation/perfusion scan low probability for pulmonary embolus. Two sets of troponins are negative. ASSESSMENT: 1. Exacerbation of heart failure. 2. Consider bilateral pneumonia. 3. Chronic renal insufficiency. 4. Chronic obstructive lung disease. RECOMMENDATIONS: Continue IV azithromycin at 500 mg daily. Continue subcutaneous heparin 5000 units subcutaneous q.8 hours, Crestor 20 mg once a day, Lasix 40 mg subcutaneous twice a day, and Nitropaste 1 inch q.6 hours. Case was discussed with Dr. Jeb Hart, primary physician as well as family members at the bedside. Yoni Jorgensen MD
[2017-11-29] MEDS: Nitroglycerin 2% Ointment Foilpak UD TOP SCH ×4 (00:30→18:59)
[2017-11-29] MEDS: Albuterol-Ipratrop 3 mg / 0.5 (3 ml) UD INH SCH ×4 (01:07→19:12)
[2017-11-29] MEDS: Magnesium Oxide 400 mg Tab UD PO SCH (10:00)
[2017-11-29] MEDS ORDERED: Pneumococcal 23-Valent Vaccine IM ONE (10:00)
[2017-11-29] MEDS: Pantoprazole 40 mg EC Tab PO SCH (10:00)
[2017-11-29] MEDS: Azithromycin 500 MG in Sodium Chloride 0.9% 250 ML IVPB SCH (10:01)
--- NOTE | 2017-11-29 19:21 | PN ---
DATE: SUBJECTIVE: Today, the patient is alert and awake, complaining of constipation, and also decrease of shortness of breath. No cough. PHYSICAL EXAMINATION: VITAL SIGNS: The patient has a blood pressure of 116/74, pulse 96, respirations 20, temperature 98.6. NECK: Supple. There JVD. LUNGS: There are some fine rales at the bases, improving. HEART: Regular rate and rhythm. There is no murmur. ABDOMEN: Soft and nontender. No palpable mass. EXTREMITIES: There is no edema at this time. LABORATORY DATA: Labs done showed that sodium 142, potassium 4.1, chloride 96, bicarb 24. BUN 27, creatinine 0.5. ASSESSMENT AND PLAN: The plan is that we are going to repeat a chest x-ray, PA and lateral, to check lung congestion and labs will be ordered tomorrow . The case was discussed with the nurse attending the patient. Jeb Hart MD
--- NOTE | 2017-11-29 19:31 | PN ---
DATE: SUBJECTIVE: The patient's shortness of breath has improved. She has adequate diuresis. Weinberg catheter was removed. The patient is still complaining of constipation. PHYSICAL EXAMINATION: VITAL SIGNS: Blood pressure 115/74, heart rate 86, temperature 98.6, respirations 20. HEENT: Normocephalic. CHEST: Minimal basilar rhonchi. HEART: S1 and S2, regular. ABDOMEN: Soft. EXTREMITIES: No edema. ASSESSMENT: 1. Exacerbation of diastolic heart failure. 2. Bilateral pneumonia. 3. Chronic obstructive lung disease. 4. Chronic renal insufficiency. RECOMMENDATIONS: Continue current IV Zithromax at 500 mg daily. Continue Crestor 20 mg once daily. Lactulose was started today at 20 mg orally twice a day. Continue subcutaneous heparin 5000 units q.8 hours, Lasix 40 mg intravenously once a day, magnesium oxide 400 mg once a day. Obtain BMP in a.m. Yoni Jorgensen MD
[2017-11-30] MEDS: Nitroglycerin 2% Ointment Foilpak UD TOP SCH ×4 (00:01→17:22)
[2017-11-30] MEDS: Albuterol-Ipratrop 3 mg / 0.5 (3 ml) UD INH SCH ×4 (01:02→19:38)
--- NOTE | 2017-11-30 08:11 | HP ---
HISTORY OF PRESENT ILLNESS: The patient is an 87-year-old female who came to my office who was complaining of shortness of breath and . The patient, she was [place] two [place] ago and legs with swelling and with weakness and also shortness of breath, so the patient was seen in my office and was found to have oxygen saturation of 88% and the patient was also tachycardic so recommended the patient to go to the emergency room by EMS. The patient refused want to go with her son and wished to have done immediately. ALLERGIES: THE PATIENT IS ALLERGIC TO YOLANDA INHIBITOR. MEDICATIONS: The patient was taking Cardizem, and as per the son, the patient was not taking any medications since she was in [place] for the past month. SOCIAL HISTORY: The patient has no smoking or alcohol abuse. FAMILY HISTORY: No inherited disease. REVIEW OF SYSTEMS: RESPIRATORY SYSTEM: The patient is having shortness of breath and issues of accessory muscle . GI: No nausea or vomiting. NEUROLOGIC: The patient is alert and oriented with no motor or sensory deficits. PHYSICAL EXAMINATION: GENERAL: The patient is alert, awake, and oriented. VITAL SIGNS: The patient in the emergency room had a very elevated blood pressure, found in the range of blood pressure was 210 systolic. The patient has received in the emergency room, and the blood pressure has decreased to . NECK: Supple. Positive JVD. ____ RESPIRATORY: No shortness of breath. HEART: Regular rate and rhythm. Positive murmur. ABDOMEN: Soft. Nontender. EXTREMITIES: There is edema. LABORATORY DATA: Sodium 142, potassium 4.3, chloride 104, bicarbonate 24, BUN 27, creatinine 1.7, ____ and BNP was , albumin is 3.2 . Hemoglobin 12.5, hematocrit ____ and platelets ____ coag with D-Dimer ____. ASSESSMENT AND PLAN: The patient diabetes mellitus also hypertension, so the patient has a consult with . Jeb Hart MD [facility] # [id number]
[2017-11-30 08:18] LABS: CALCIUM 8.8 mg/dl (8.6-10.4)
--- NOTE | 2017-11-30 08:27 | RAD ---
HISTORY: chf COMPARISON: 11/27/2017 TECHNIQUE: Chest PA and lateral FINDINGS: LUNGS: Minimal residual opacity at lung bases representing improving pulmonary edema. There is diffuse interstitial prominence consistent with interstitial pulmonary edema. PLEURA: Minimal bilateral pleural effusion. No pneumothorax. CARDIOVASCULAR: Normal heart size. Decreased congestive change. OSSEOUS STRUCTURES: No significant abnormalities. VISUALIZED UPPER ABDOMEN: Normal. OTHER FINDINGS: None. IMPRESSION: Improving pulmonary edema. Minimal bilateral pleural effusion
[2017-11-30] MEDS: Magnesium Oxide 400 mg Tab UD PO SCH (10:00)
[2017-11-30] MEDS: Azithromycin 500 MG in Sodium Chloride 0.9% 250 ML IVPB SCH (10:30)
[2017-11-30] MEDS: Pantoprazole 40 mg EC Tab PO SCH (10:34)
--- NOTE | 2017-11-30 14:40 | VASCLAB ---
PROCEDURE: Bilateral Lower Extremity Venous Duplex Exam. HISTORY: Leg pain, High D-Dimer PRIORS: 03/25/2015, normal. TECHNIQUE: Bilateral common femoral, femoral, popliteal and posterior tibial, peroneal and great saphenous veins were evaluated. Flow was assessed with color Doppler, compressibility, assessment of phasic flow and augmentation response. Report prepared by LYNETTE Kay FINDINGS: RIGHT: 1. Common Femoral Vein: 1.1. Compressibility - Fully compressible: Thrombus - None : Flow - Phasic: Augmentation -Normal: Reflux - None. 2. Femoral Vein: 2.1. Compressibility - Fully compressible: Thrombus - None : Flow - Phasic: Augmentation -Normal: Reflux - None. 3. Popliteal Vein: 3.1. Compressibility - Fully compressible: Thrombus - None : Flow - Phasic: Augmentation -Normal: Reflux - None. 4. Posterior Tibial Vein: 4.1. Compressibility - Fully compressible: Thrombus - None: Flow - Phasic: Augmentation -Normal: Reflux - None. 5. Peroneal Vein: 5.1. Compressibility - Fully compressible: Thrombus - None: Flow - Phasic: Augmentation -Normal: Reflux - None. 6. Great Saphenous Vein: 6.1. Compressibility - Fully compressible: Thrombus - None: Flow - Phasic: Augmentation - Normal: Reflux - None. LEFT: 1. Common Femoral Vein: 1.1. Compressibility - Fully compressible: Thrombus - None: Flow - Phasic: Augmentation -Normal: Reflux - None. 2. Femoral Vein: 2.1. Compressibility - Fully compressible: Thrombus - None: Flow - Phasic: Augmentation -Normal: Reflux - None. 3. Popliteal Vein: 3.1. Compressibility - Fully compressible: Thrombus - None : Flow - Phasic: Augmentation -Normal: Reflux - None. 4. Posterior Tibial Vein: 4.1. Compressibility - Fully compressible: Thrombus - None: Flow - Phasic: Augmentation -Normal: Reflux - None. 5. Peroneal Vein: 5.1. Compressibility - Fully compressible: Thrombus - None: Flow - Phasic: Augmentation -Normal: Reflux - None. 6. Great Saphenous Vein: 6.1. Compressibility - Fully compressible: Thrombus - None: Flow - Phasic: Augmentation - Normal: Reflux - None. OTHER FINDINGS: Right: None significant. Left: None significant. IMPRESSION: Right: No evidence of deep or superficial vein thrombosis of the right lower extremity. Normal valve function noted of the right side. Left: No evidence of deep or superficial vein thrombosis of the left lower extremity. Normal valve function noted of the left side.
[2017-11-30] MEDS: Sodium Chloride Nasal 0.65% Soln (30ml) NAS SCH (17:23)
--- NOTE | 2017-11-30 19:07 | CARD ---
APPROVED REPORT EXAM: Two-dimensional and M-mode echocardiogram with Doppler and color Doppler. Other Information Quality : GoodRhythm : INDICATION Dizziness and Vertigo Congestive Heart Failure M-Mode DIMENSIONS RVDd1.84 (2.1-3.2cm)IVSd3.35 (0.7-1.1cm) LVDd2.69 (4.0-5.6cm)PWd1.21 (0.7-1.1cm) FS (%) 2 %LVDs2.64 (2.0-3.8cm) LVEF (%)65 (>50%) Mitral Valve MV E Vrozuksc819.3cm/sMV A Cmerhhko72.7cm/sE/A ratio2.3 TDI E/Lateral E'0.0E/Medial E'0.0 Tricuspid Valve TR Peak Pwoyxris734be/sTR Peak Gr.25neWeWITY75zlTl LEFT VENTRICLE The left ventricle is normal size. There is normal left ventricular wall thickness. The left ventricular function is normal. The left ventricular ejection fraction is within the normal range. There is normal LV segmental wall motion. The left ventricular diastolic function is normal. AORTIC VALVE The aortic valve is thickened but opens well. MITRAL VALVE Mitral regurgitation is trace. TRICUSPID VALVE There is moderate to severe tricuspid regurgitation. <Conclusion> Normal LV systolic function. Normal chamber size. Trace MR. Moderate to severe TR.
--- NOTE | 2017-11-30 20:57 | PN ---
DATE: SUBJECTIVE: The patient's shortness of breath has improved. She did experience mild epistaxis. I requested that nasal O2 to be humidified. She is experiencing productive cough. PHYSICAL EXAMINATION: VITAL SIGNS: Blood pressure 114/73, heart rate 84, temperature 98.1, respirations 20. HEENT: Normocephalic. CHEST: Minimal basilar rhonchi. HEART: S1 and S2, regular. EXTREMITIES: No edema. ASSESSMENT: 1. Bilateral pneumonia. 2. Diastolic heart failure. 3. Aortic sclerosis. RECOMMENDATIONS: Continue current IV Zithromax. Continue Crestor. Continue IV Lasix 40 mg once a day. Subcutaneous heparin was discontinued. Start Robitussin one teaspoonful t.i.d. Yoni Jorgensen MD
[2017-12-01] MEDS: Nitroglycerin 2% Ointment Foilpak UD TOP SCH ×4 (00:03→18:01)
[2017-12-01] MEDS: Sodium Chloride Nasal 0.65% Soln (30ml) NAS SCH ×5 (00:03→18:23)
[2017-12-01] MEDS: Albuterol-Ipratrop 3 mg / 0.5 (3 ml) UD INH SCH ×4 (01:30→19:52)
[2017-12-01 06:43] LABS: CALCIUM 8.9 mg/dl (8.6-10.4)
[2017-12-01] MEDS: Magnesium Oxide 400 mg Tab UD PO SCH (09:30)
[2017-12-01] MEDS: guaiFENesin 100 mg/5 ml Syrup UD PO PRN (09:45)
[2017-12-01] MEDS: Pantoprazole 40 mg EC Tab PO SCH (09:46)
[2017-12-01] MEDS: Azithromycin 500 MG in Sodium Chloride 0.9% 250 ML IVPB SCH (10:00)
--- NOTE | 2017-12-01 16:06 | RAD ---
HISTORY: COMPARISON: 11/29/2017 TECHNIQUE: Chest PA and lateral FINDINGS: LINES AND TUBES: None. LUNG AND PLEURA: The lungs are well inflated. There is interval improved aeration in the lungs with improving pulmonary venous congestion and interstitial pulmonary edema. There are probable small pleural effusions. HEART AND MEDIASTINUM: The heart is not enlarged. The hilar and mediastinal contours are within normal limits. SKELETAL STRUCTURES: The bony structures are within normal limits for the patient's age. VISUALIZED UPPER ABDOMEN: Normal. OTHER FINDINGS: None. IMPRESSION: Improving congestive heart failure.
[2017-12-02] MEDS: Albuterol-Ipratrop 3 mg / 0.5 (3 ml) UD INH SCH ×4 (01:11→19:47)
[2017-12-02] MEDS: Sodium Chloride Nasal 0.65% Soln (30ml) NAS SCH ×4 (05:15→17:47)
[2017-12-02] MEDS: Nitroglycerin 2% Ointment Foilpak UD TOP SCH ×4 (06:07→17:46)
[2017-12-02 06:36] LABS: HEMOGLOBIN 11.6 g/dL (11.0-16.0); MEAN CELL VOLUME 92.1 fL (81.0-99.0); MEAN CORPUSCULAR HEMOGLOBIN 30.9 pg (27.0-31.0); MEAN CORPUSCULAR HGB CONC 33.5 g/dL (33.0-37.0); MEAN PLATELET VOLUME 10.4 fL (7.2-11.7); RBC 3.77 Mil/uL (3.80-5.20); RED CELL DISTRIBUTION WIDTH 15.2 % (11.5-14.5); WHITE BLOOD COUNT 7.4 K/uL (4.8-10.8)
--- NOTE | 2017-12-02 08:17 | PN ---
DATE: 12/01/2017 SUBJECTIVE: Today, the patient is alert and awake, has been having less shortness of breath, no chest pain. The patient has no dizziness. The patient denies any constipation today, has bowel movement. PHYSICAL EXAMINATION: VITAL SIGNS: Blood pressure is 115/78, pulse is 77, respirations 18, temperature 97.5. NECK: Supple. No JVD. LUNGS: At this point, there are fine rales at the bases. HEART: Regular rate and rhythm and persistent murmur. ABDOMEN: Soft and nontender. No guarding, rebound, or mass. EXTREMITIES: There is no edema and mild tenderness in the knees. LABORATORY DATA: Chemistry showed a sodium of 142, potassium of 4.2, chloride is 102, bicarb is 28, BUN 25, creatinine 1.8, glucose is 97, and calcium 8.9. The patient also had a chest x-ray today and the chest x-ray showed that there is interval improvement of the venous congestion and interstitial pulmonary edema and also there is an interval improved aeration in the lungs. PLAN: We are going to decrease the Lasix to 20 twice a day since the patient was taking Lasix 40 in the morning 20 in the evening, and also we are going to continue the current medication and order physical therapy. The case was reviewed and discussed with the Opal Roblero, the nurse practitioner. Jeb Hart MD
--- NOTE | 2017-12-02 08:21 | PN ---
DATE: 12/01/2017 SUBJECTIVE: The patient denies chest pain. He has a history of productive cough, shortness of breath has improved. PHYSICAL EXAMINATION: VITAL SIGNS: Blood pressure 115/78, heart rate 77, temperature 97.5, respirations 18. HEENT: Normocephalic. CHEST: Minimal basilar rhonchi. HEART: S1 and S2, regular. EXTREMITIES: No edema. LABORATORY DATA: Today's BUN and creatinine are 25 and 1.8. The rest of SMA-7 is within normal limit. Official echocardiographic study report consists of a normal left ventricular systolic function, normal chamber size, trace MR, [id number] TR. ASSESSMENT: 1. Bilateral pneumonia. 2. Moderate to severe pulmonary hypertension. 3. Aortic sclerosis. 4. Chronic renal insufficiency. RECOMMENDATIONS: Continue current IV Zithromax at 500 mg daily. Continue Crestor 20 mg once daily, subcutaneous heparin 5000 units twice daily, Lasix 20 mg intravenously twice a day, Robitussin 100 mg p.o. q.4 hours p.r.n. Yoni Jorgensen MD
[2017-12-02] MEDS: Magnesium Oxide 400 mg Tab UD PO SCH (10:36)
[2017-12-02] MEDS: Pantoprazole 40 mg EC Tab PO SCH (10:37)
[2017-12-02] MEDS: Azithromycin 500 MG in Sodium Chloride 0.9% 250 ML IVPB SCH (11:05)
--- NOTE | 2017-12-02 18:58 | PN ---
DATE: 12/02/2017 SUBJECTIVE: The patient is still experiencing productive cough and sharp chest pain. PHYSICAL EXAMINATION: VITAL SIGNS: Blood pressure 149/68, heart rate 78, temperature 97.9, respirations 18. HEENT: Normocephalic. NECK: Bibasilar rhonchi. HEART: S1 and S2, regular. ABDOMEN: Soft. EXTREMITIES: No edema. LABORATORY DATA: Today's SMA-7: Sodium 141, potassium 4.3, chloride 98, CO2 of 31, glucose 105, BUN 32, creatinine 1.8. Today's hemoglobin, hematocrit, white count, and platelet count are within normal limits. Blood culture is negative after four days. Repeat chest x-ray yesterday revealed prominent interstitial markings. ASSESSMENT: 1. Presumptive pneumonia. 2. Chronic renal insufficiency. 3. Chest pain, myocardial infarction is ruled out. 4. Aortic sclerosis. RECOMMENDATIONS: Continue current IV Zithromax 500 mg daily. Continue Crestor 20 mg once a day, subcutaneous heparin 5000 units twice a day, ____ mg twice a day, Robitussin 100 mg p.o. q.4 hours. Discontinue Lasix. Yoni Jorgensen MD
--- NOTE | 2017-12-02 21:46 | CARD ---
APPROVED REPORT EKG Measurement Heart [id number] <Conclusion> Normal sinus rhythm Possible Left atrial enlargement ST & T wave abnormality, consider inferior ischemia ST & T wave abnormality, consider anterolateral ischemia Abnormal ECG
--- NOTE | 2017-12-02 22:44 | PCM.RRT ---
<Yadira Woods - Last Filed: 12/02/17 22:37> WILL CALL ORDER CLERK Nurses Assessment - Situation Date: 12/02/17 Time WILL CALL ORDER CLERK was called: 20:37 WILL CALL ORDER CLERK Responder Arrival Time:: 20:38 WILL CALL ORDER CLERK Location:: Med/Surg Room Number: 659b WILL CALL ORDER CLERK Reason for Call: Tachycardia WILL CALL ORDER CLERK Called By: RN - IV IV Inserted during WILL CALL ORDER CLERK?: No - Respiratory WILL CALL ORDER CLERK Delivery Method: Nasal Cannula @L/min Oxygen Flow Rate: 3 Received Nebulizer Treatments: No Was the Patient Ventilated with Bag/Mask 100% O2?: No Secretions Suctioned?: No Was the Patient Intubated?: No Was the Patient Placed on a Ventilator?: No - Medication Medications Administered During WILL CALL ORDER CLERK: none but stat ekg ordered. - Diagnostic Test Ordered EKG: Yes Chest X-Ray: No CT Scan: No CPR started during WILL CALL ORDER CLERK?: No - Vital Signs Vital Signs: Rapid Response Vital Sign Blood Pressure 132/80 Pulse Rate 94 Respiratory Rate 18 Temperature 98.2 F Oxygen Saturation 96 - Time WILL CALL ORDER CLERK Ended Time WILL CALL ORDER CLERK Ended: 20:45 - Vital Signs at end of WILL CALL ORDER CLERK Vital Signs at end of WILL CALL ORDER CLERK: Rapid Response End Vital Sign Blood Pressure 130/75 Pulse Rate 84 Respiratory Rate 18 Temperature 98.2 F O2 Sat by Pulse Oximetry 97 - Recommendations Notifications: Attending Physician, Consultations I.Reason for WILL CALL ORDER CLERK - A) Acute Change in Patient: (Select all that apply): Staff member or family is worried about patient - Respiratory Oxygen Delivery Method: Nasal Cannula @L/min Oxygen Flow Rate: 3 - Constitutional Appears: Non-toxic, No Acute Distress - Head Head Exam: ATRAUMATIC, NORMAL INSPECTION, NORMOCEPHALIC - Eyes Eye Exam: EOMI, Normal appearance - Respiratory Exam Respiratory Exam: NORMAL BREATHING PATTERN - Cardiovascular Exam Cardiovascular Exam: REGULAR RHYTHM, RRR - GI/Abdominal Exam GI & Abdominal Exam: Soft. absent: Tenderness - Neurological Exam Neurological Exam: Alert, Awake, Oriented x3 Plan - Assessment of Findings&Treatment Plan WILL CALL ORDER CLERK called for change on telemetry strip. Leads were placed incorrectly. Patient was asymptomatic and denied chest pain or shortness of breath. VS: 132/80, P: 80, SpO2: 97% on 3L NC, T:98.1 EKG: NSR @ 74bpm <Jimmy Bhakta - Last Filed: 12/03/17 06:07> WILL CALL ORDER CLERK Nurses Assessment - Vital Signs Vital Signs: Rapid Response Vital Sign Blood Pressure 132/80 Pulse Rate 94 Respiratory Rate 18 Temperature 98.2 F Oxygen Saturation 96 - Vital Signs at end of WILL CALL ORDER CLERK Vital Signs at end of WILL CALL ORDER CLERK: Rapid Response End Vital Sign Blood Pressure 130/75 Pulse Rate 84 Respiratory Rate 18 Temperature 98.2 F O2 Sat by Pulse Oximetry 97 Attending/Attestation - Attestation I have personally seen and examined this patient.: Yes I have fully participated in the care of the patient.: Yes I have reviewed all pertinent clinical information, including history, physical exam and plan: Yes Notes (Text): Baseline rhythm was sinus but monitor also detecting non cardiac rhythm which was fast, pusle was about 80/min sinus on bedside monitor, no change in patient condition during the rhythm change, patient was asymptomatic.
[2017-12-03] MEDS: Sodium Chloride Nasal 0.65% Soln (30ml) NAS SCH ×4 (00:46→17:42)
[2017-12-03] MEDS: Nitroglycerin 2% Ointment Foilpak UD TOP SCH ×4 (00:47→17:42)
[2017-12-03] MEDS: Albuterol-Ipratrop 3 mg / 0.5 (3 ml) UD INH SCH ×4 (01:52→20:38)
[2017-12-03 06:19] LABS: BASO # 0.1 K/uL (0.0-0.2); EOS # 0.5 K/uL (0.0-0.7); EOS % 7.8 % (0.0-4.0); HEMOGLOBIN 11.2 g/dL (11.0-16.0); LYMPH # 1.5 K/uL (1.0-4.3); MEAN CELL VOLUME 92.2 fL (81.0-99.0); MEAN CORPUSCULAR HEMOGLOBIN 30.7 pg (27.0-31.0); MEAN CORPUSCULAR HGB CONC 33.3 g/dL (33.0-37.0); MEAN PLATELET VOLUME 9.5 fL (7.2-11.7); MONO # 0.5 K/uL (0.0-0.8); MONO % 8.8 % (0.0-10.0); NEUT # 3.7 K/uL (1.8-7.0); NEUT % 58.4 % (50.0-75.0); RBC 3.66 Mil/uL (3.80-5.20); RED CELL DISTRIBUTION WIDTH 14.8 % (11.5-14.5); WHITE BLOOD COUNT 6.3 K/uL (4.8-10.8)
[2017-12-03 07:08] LABS: CALCIUM 8.8 mg/dl (8.6-10.4)
[2017-12-03] MEDS: Magnesium Oxide 400 mg Tab UD PO SCH (09:28)
[2017-12-03] MEDS: Azithromycin 500 MG in Sodium Chloride 0.9% 250 ML IVPB SCH (09:28)
[2017-12-03] MEDS: Pantoprazole 40 mg EC Tab PO SCH (09:28)
[2017-12-03 15:30] VITALS: RESP 20
--- NOTE | 2017-12-03 23:06 | PN ---
DATE: SUBJECTIVE: The patient is experiencing productive cough, interrupted chest discomfort with cough. No leg swelling. No dizziness. PHYSICAL EXAMINATION VITAL SIGNS: Blood pressure 112/69, heart rate 87, temperature 97.5, respirations 20. HEENT: Normocephalic. CHEST: Bibasilar rhonchi. HEART: S1 and S2 regular. EXTREMITIES: No edema. LABORATORY DATA: Today's BUN and creatinine are 30 and 1.3 respectively. Clgivv-ho-xgbsv is 31. The rest of chemistries at present within normal limits. Today's hemoglobin and hematocrit are 11.2 and 33.7. White count and platelet count are within normal limits. ASSESSMENT: 1. Presumptive pneumonia. 2. Aortic sclerosis. 3. Hypertension. 4. Improved renal sufficiency. RECOMMENDATIONS: Continue current IV Zithromax at 500 mg daily, Crestor 200 mg once a day, heparin 5000 units subcutaneous twice a day, Robitussin 100 mg p.o. q.4 hours, Protonix 40 mg p.o. once a day. Discontinue telemetry. Yoni Jorgensen MD
[2017-12-04] MEDS: Nitroglycerin 2% Ointment Foilpak UD TOP SCH ×3 (00:26→11:00)
[2017-12-04] MEDS: Albuterol-Ipratrop 3 mg / 0.5 (3 ml) UD INH SCH ×2 (01:14→07:54)
[2017-12-04] MEDS: Sodium Chloride Nasal 0.65% Soln (30ml) NAS SCH ×4 (05:41→12:08)
[2017-12-04 08:01] VITALS: BP 120/75; TEMP 97.7
[2017-12-04 08:36] LABS: BASO # 0.1 K/uL (0.0-0.2); BASO % 0.7 % (0.0-2.0); EOS # 0.5 K/uL (0.0-0.7); EOS % 6.4 % (0.0-4.0); HEMOGLOBIN 11.7 g/dL (11.0-16.0); LYMPH # 1.5 K/uL (1.0-4.3); LYMPH % 21.4 % (20.0-40.0); MEAN CELL VOLUME 93.2 fL (81.0-99.0); MEAN CORPUSCULAR HEMOGLOBIN 30.8 pg (27.0-31.0); MEAN CORPUSCULAR HGB CONC 33.1 g/dL (33.0-37.0); MEAN PLATELET VOLUME 10.3 fL (7.2-11.7); MONO # 0.7 K/uL (0.0-0.8); MONO % 9.7 % (0.0-10.0); NEUT # 4.3 K/uL (1.8-7.0); NEUT % 61.8 % (50.0-75.0); RBC 3.78 Mil/uL (3.80-5.20); RED CELL DISTRIBUTION WIDTH 15.1 % (11.5-14.5)
[2017-12-04 08:41] LABS: CALCIUM 9.5 mg/dl (8.6-10.4)
--- NOTE | 2017-12-04 10:22 | PN ---
DATE: 12/03/2017 SUBJECTIVE: Today, the patient is more alert and awake with no dyspnea, there is some shortness of breath on exertion and also cough. PHYSICAL EXAMINATION: VITAL SIGNS: The patient has a blood pressure of 116/73, pulse 82, respiratory rate 18, and temperature 97.4. NECK: Supple. No JVD. LUNGS: There are some rales bilaterally at the bases. HEART: Regular rate and rhythm, but there is a systolic ejection murmur mostly heard at the left sternal border. ABDOMEN: Soft and nontender, no palpable mass. EXTREMITIES: There is no edema. LABORATORY DATA: The labs show that the WBC is 6.3, hemoglobin is 11.2, hematocrit 32.7, and platelet is 181. Chemistry showed sodium 140, potassium 4.4, bicarbonate is 101, BUN is 30, creatinine 1.3, glucose is 97. PLAN: We are going to continue IV Lasix and the current medications. We are going to ask Physical Therapy evaluation. The case was reviewed and discussed with Kanwal Calix, the nurse practitioner. Jeb Hart MD
--- NOTE | 2017-12-04 10:32 | CARD ---
APPROVED REPORT EKG Measurement Heart [id number] <Conclusion> Normal sinus rhythm Nonspecific T wave abnormality Abnormal ECG
[2017-12-04] MEDS: guaiFENesin 100 mg/5 ml Syrup UD PO PRN (10:44)
[2017-12-04] MEDS: Pantoprazole 40 mg EC Tab PO SCH (10:47)
[2017-12-04] MEDS: Magnesium Oxide 400 mg Tab UD PO SCH (10:47)
[2017-12-04] MEDS: Azithromycin 500 MG in Sodium Chloride 0.9% 250 ML IVPB SCH (10:47)
--- NOTE | 2017-12-04 11:35 | CP.PCM.PN ---
Subjective - Date & Time of Evaluation Date of Evaluation: 12/04/17 Time of Evaluation: 10:45 - Subjective Subjective: patient seen and examined today, awake, alert, ox3, denies any chest pain, sob cough/congestion a febrile Objective - Vital Signs/Intake and Output Vital Signs (last 24 hours): Temp Pulse Resp BP Pulse Ox 97.7 F 45 L 20 120/75 98 12/04/17 08:00 12/04/17 08:00 12/04/17 08:00 12/04/17 08:00 12/04/17 08:00 - Medications Medications: Current Medications Acetaminophen (Tylenol 325mg Tab) 650 mg PO Q6 PRN PRN Reason: Headache Albuterol/Ipratropium (Duoneb 3 Mg/0.5 Mg (3 Ml) Ud) 3 ml INH RQ6 [facility] Last Admin: 12/04/17 07:54 Dose: 3 ml Guaifenesin (Robitussin) 100 mg PO Q4H PRN PRN Reason: Cough Last Admin: 12/04/17 10:44 Dose: 100 mg Heparin Sodium (Porcine) (Heparin) 5,000 units SC Q12 [facility] Last Admin: 12/04/17 10:47 Dose: 5,000 units Azithromycin 500 mg/ Sodium (Chloride) 250 mls @ 250 mls/hr IVPB DAILY RACHEL PRN Reason: Protocol Last Admin: 12/04/17 10:47 Dose: 250 mls/hr Magnesium Oxide (Mag-Ox) 400 mg PO DAILY [facility] Last Admin: 12/04/17 10:47 Dose: 400 mg Nitroglycerin (Nitro-Bid 2% Oint) 1 ea TOP Q6 [facility] Last Admin: 12/04/17 11:00 Dose: 1 ea Pantoprazole Sodium (Protonix Ec Tab) 40 mg PO DAILY [facility] Last Admin: 12/04/17 10:47 Dose: 40 mg Rosuvastatin Calcium (Crestor) 20 mg PO HS [facility] Last Admin: 12/03/17 22:06 Dose: 20 mg Sodium Chloride (Casselberry Baby Saline 30 Ml) 0 ml GAGAN Q6 [facility] Last Admin: 12/04/17 11:00 Dose: 1 spr - Labs Labs: 12/04/17 08:22 12/04/17 08:22 - Constitutional Appears: Well, No Acute Distress - Respiratory Exam Respiratory Exam: Clear to Ausculation Bilateral, NORMAL BREATHING PATTERN - Cardiovascular Exam Cardiovascular Exam: REGULAR RHYTHM, +S1, +S2, Murmur - Neurological Exam Neurological Exam: Alert, Awake, Oriented x3 Assessment and Plan - Assessment and Plan (Free Text) Assessment: A/P 87 year old female with PMHx of HTN admitted with SOB/pneumonia/CHF Patient clinically im proved with lasix IV and antibiotics seen by Dr. Hart, stable for discharge home today and f/u with Dr. Hewitt office on december 13
--- NOTE | 2017-12-04 11:39 | PCM.HF ---
Heart Failure Core Measure - Heart Failure Ejection Fraction: 40 % or Greater YOLANDA Inhibitor Prescribed: No Contraindication/Reason for not providing: allergic Beta-Yasmeen Prescribed: None Contraindication/Reason for not providing: COPD Angiotensin II Receptor Yasmeen Prescribed: No Contraindication/Reason for not providing: EF>45 AnticoagulationTherapy for Atrial Fibrillation/Atrialflutter: No Contraindication/Reason for not providing: NO HX OF AFIB Aldosterone Antagonist Prescribed: No Contraindication/Reason for not providing: EF>45 Hydralazine Nitrate Prescribed: No Contraindication/Reason for not providing: EF>45 Implantable Cardioverter Defibrillator Therapy: No Contraindication/Reason for not providing: EF>45 Cardiac Resynchronization Therapy Prescribed: No Contraindication/Reason for not providing: EF>45 - Follow up Will be discharged to: Home Follow Up Date (must be within 7 days from discharge): 12/08/17 Follow Up Time: 09:00
[2017-12-04 11:43] VITALS: PULSE 88; O2SAT 96
--- NOTE | 2017-12-04 18:33 | PN ---
DATE: SUBJECTIVE: The patient is comfortable, sitting on a chair. Denies any chest pain. PHYSICAL EXAMINATION VITAL SIGNS: Blood pressure 120/75, heart rate 45, subsequently was 88, temperature 97.7. Most likely the recording of 45 is practically half in the counting of the pulse rate by the machine for some technical reason. HEENT: Normocephalic. CHEST: Clear. HEART: S1 and S2, regular. Grade 2/6 ejection systolic murmur over the left sternal border. ABDOMEN: Soft. EXTREMITIES: No edema. LABORATORY DATA: Today's hemoglobin and hematocrit are 11.7 and 35.2. White count and platelet count are within normal limits. Today's BUN and creatinine are 25 and 1.4 respectively. Glucose 109. The rest of BMP is within normal limits. ASSESSMENT: 1. Pneumonia. 2. Diastolic heart failure. 3. Aortic sclerosis. 4. Chronic renal insufficiency. 5. Hyperlipidemia. RECOMMENDATIONS: The patient can be discharged from a cardiac point of view on Natalia Castañeda,with resumption of her oral Nexium as home medication. Yoni Jorgensen MD
--- NOTE | 2017-12-05 19:47 | DS ---
This patient is an 87-year-old female, who came to my office complaining of shortness of breath. The patient came from the country [facility] and progressively was short of breath to the point the patient was receiving oxygen in the office. I have advised the patient to go to the emergency room, and the patient has preferred to go with her son, and in the emergency room, the patient was found to have shortness of breath in both lungs. The patient was found to have very elevated BNP, that was in the range of 2000 plus. The patient was admitted with new onset of CHF and has a consult with Cardiology. The patient also has a V/Q scan that was negative for PE, that is low probability and also had an echocardiogram. The echocardiogram has shown the left ventricular is normal size and normal left ventricular thickness, and also the patient has an ejection fraction of 65%. The patient has received medication including Lasix, and the patient was allergic to YOLANDA Inhibitors, the patient did not receive this and the paster operator agreed to that also. Progressively, the symptom has improved, and we would discharge the patient home today. The patient will come to my office within 1 week and decision is given to the patient. Jeb Hrat MD
--- NOTE | 2017-12-07 08:13 | PN ---
DATE: SUBJECTIVE: Today, the patient is alert, awake, denies any shortness of breath, no chest pain, no dizziness, no palpitations. The patient also had been having a good bowel movement. PHYSICAL EXAMINATION: VITAL SIGNS: The patient has blood pressure of 110/62, pulse 62, respirations 20, temperature 97.2. HEENT: Head is normocephalic. NECK: Supple. No JVD. LUNGS: Clear today. HEART: Regular rate and rhythm. Positive murmur. ABDOMEN: Soft. Nontender. No palpable mass. EXTREMITIES: There is no edema. Patient had a test done. It showed that the WBC is 7.3, hemoglobin 11.7, hematocrit 35.2, and platelets 184. Chemistry showed that the sodium is 143, potassium 4.9, chloride 103, bicarb is 29, BUN is 25, creatinine 1.4, glucose is 109. Today, discussed the patient with the nurse practitioner, Kanwal Calix. Decision was made to discharge the patient home on medication that was earlier. Jeb Hart MD
== END 2017-12-04 13:51 | disposition home or self-care (01) | DRG 291 ==
LOC: C.ER 13:26 → C.9E 16:14 → C.6T 16:57 → C.9E 18:48 → C.6T 20:30
PROVIDERS: ADMIT Specialist; ATTEND Specialist
DX: I13.0 Hypertensive heart and chronic kidney disease with heart failure and stage 1 through stage 4 chronic kidney disease, or unspecified chronic kidney disease (principal); I50.33 Acute on chronic diastolic (congestive) heart failure; J18.9 Pneumonia, unspecified organism; E11.22 Type 2 diabetes mellitus with diabetic chronic kidney disease; J44.0 Chronic obstructive pulmonary disease with (acute) lower respiratory infection; I27.20 Pulmonary hypertension, unspecified; I35.0 Nonrheumatic aortic (valve) stenosis; N18.9 Chronic kidney disease, unspecified; E78.00 Pure hypercholesterolemia, unspecified; E78.5 Hyperlipidemia, unspecified; K59.00 Constipation, unspecified; R04.0 Epistaxis; Z88.8 Allergy status to other drugs, medicaments and biological substances

== ENCOUNTER 2017-12-15 13:09 | Inpatient (IN) | payer MEDICARE, MEDICAID ==
[2017-12-15 13:09] VITALS: BMI 27.3
[2017-12-15 14:52] LABS: BASO # 0.1 K/uL (0.0-0.2); BASO % 1.2 % (0.0-2.0); EOS # 0.1 K/uL (0.0-0.7); EOS % 0.7 % (0.0-4.0); HEMOGLOBIN 12.7 g/dL (11.0-16.0); LYMPH # 0.8 K/uL (1.0-4.3); LYMPH % 8.9 % (20.0-40.0); MEAN CELL VOLUME 93.2 fL (81.0-99.0); MEAN CORPUSCULAR HGB CONC 33.3 g/dL (33.0-37.0); MEAN PLATELET VOLUME 9.7 fL (7.2-11.7); MONO # 0.5 K/uL (0.0-0.8); MONO % 5.5 % (0.0-10.0); NEUT # 7.9 K/uL (1.8-7.0); NEUT % 83.7 % (50.0-75.0); PLATELET COUNT 302 K/uL (130-400); RBC 4.09 Mil/uL (3.80-5.20); RED CELL DISTRIBUTION WIDTH 15.7 % (11.5-14.5); WHITE BLOOD COUNT 9.4 K/uL (4.8-10.8)
[2017-12-15 14:59] LABS: PROTHROMBIN TIME 11.6 SECONDS (9.7-12.2)
[2017-12-15 15:24] LABS: ALB/GLOB RATIO 1.2 (1.0-2.1); ALBUMIN 3.9 g/dL (3.5-5.0); CALCIUM 9.3 mg/dl (8.6-10.4)
[2017-12-15 15:25] LABS: SQUAMOUS EPITHIAL < 1 /hpf (0-5); URINE BILIRUBIN NEGATIVE (NEGATIVE); URINE BLOOD NEGATIVE (NEGATIVE); URINE CLARITY Clear (Clear); URINE COLOR Colorless (YELLOW); URINE GLUCOSE (UA) NORMAL (Normal); URINE LEUKOCYTE ESTERASE NEG Leu/uL (Negative); URINE PROTEIN NEGATIVE (NEGATIVE); URINE UROBILINOGEN NORMAL mg/dL (0.2-1.0)
[2017-12-15 15:26] LABS: LYMPHOCYTE 10 % (20-40); MONOCYTE 9 % (0-10); PLATELET ESTIMATE NORMAL (NORMAL); TOTAL CELLS COUNTED 100
[2017-12-15 15:27] LABS: NEUTROPHIL 81 % (50-75)
--- NOTE | 2017-12-15 15:38 | RAD ---
PROCEDURE: CHEST RADIOGRAPH, 1 VIEW HISTORY: SOB COMPARISON: 12/01/2017 FINDINGS: LUNGS: Pulmonary vascular congestion. No discrete pulmonary infiltrates, masses or acute pulmonary parenchymal abnormalities are identified. PLEURA: Small bilateral pleural effusions. CARDIOVASCULAR: Normal. OSSEOUS STRUCTURES: No significant abnormalities. VISUALIZED UPPER ABDOMEN: Normal. OTHER FINDINGS: None. IMPRESSION: Pulmonary vascular congestion, small bilateral pleural effusions new findings compared to the prior study.
--- NOTE | 2017-12-15 15:41 | C.PDOC ---
History Of Present Illness 87 year old female presents to the ED for evaluation after being sent by her PMD , Dr. Hart, for evaluation of shortness of breath and suspected CHF. Patient was recently admitted for CHF. Patient reports good daily compliance with 20mg Lasix. Patient states she overdrinks her diuretics. She denies fever, chills. Time Seen by Provider: 12/15/17 14:12 Chief Complaint (Nursing): Shortness Of Breath History Per: Patient History/Exam Limitations: no limitations Current Symptoms Are (Timing): Still Present Past Medical History Reviewed: Historical Data, Nursing Documentation, Vital Signs Vital Signs: Last Vital Signs Temp 98.1 F 12/15/17 13:57 Pulse 73 12/15/17 16:56 Resp 20 12/15/17 15:48 BP 152/85 H 12/15/17 15:48 Pulse Ox 92 L 12/15/17 16:55 - Medical History PMH: Fractures (left wrist 3 weeks ago), HTN, Hypercholesterolemia, Hyperlipidemia Surgical History: Appendectomy - [facility] Procedures APPLICATION OF SPLINT (06/07/15) DRESSING OF WOUND NEC (04/23/13) TETANUS TOXOID ADMINIST (04/23/13) Family History: States: Unknown Family Hx - Social History Hx Tobacco Use: No Hx Alcohol Use: No Hx Substance Use: No - Immunization History Hx Tetanus Toxoid Vaccination: Yes Hx Influenza Vaccination: Yes Hx Pneumococcal Vaccination: Yes Review Of Systems Constitutional: Negative for: Fever, Chills Respiratory: Positive for: Shortness of Breath Physical Exam - Physical Exam Appears: Non-toxic, Other (in moderate respiratory distress ) Skin: Normal Color, Warm, Dry Head: Atraumatic, Normacephalic Eye(s): bilateral: Normal Inspection Oral Mucosa: Moist Neck: Supple Chest: Symmetrical, No Deformity, No Tenderness Cardiovascular: Rhythm Regular, Murmur (holosystolic), JVD Respiratory: Rales, No Rhonchi, No Wheezing Extremity: Capillary Refill (less than 2 seconds ), Other (2/4 pitting edema to b/l lower extremities ) Neurological/Psych: Oriented x3, Normal Speech, Normal Cognition Gait: Steady ED Course And Treatment - Laboratory Results Result Diagrams: 12/15/17 14:42 12/15/17 14:42 Lab Interpretation: Abnormal (BNP 6800, trop 0.226 H) ECG: Interpreted By Me ECG Rhythm: Sinus Rhythm ECG Interpretation: Normal Rate From EC O2 Sat by Pulse Oximetry: 92 Pulse Ox Interpretation: Normal - Radiology CXR: Interpreted by Me CXR Interpretation: Yes: Other (+CHF) Progress Note: grisel pittman bipap Reevaluation Time: 15:42 Reassessment Condition: Improved - Physician Consult Information Outcome Of Conversation: 1540: d/w denisha Juarez to admit. Disposition Doctor Will See Patient In The: Hospital Counseled Patient/Family Regarding: Studies Performed, Diagnosis - Disposition Disposition: HOSPITALIZED Disposition Time: 15:42 Condition: GOOD - Clinical Impression Clinical Impression: Chronic congestive heart failure, NSTEMI (non-ST elevated myocardial infarction ) - Scribe Statement The provider has reviewed the documentation as recorded by the Scribe (Lucy Ruiz) Provider Attestation: All medical record entries made by the Scribe were at my direction and personally dictated by me. I have reviewed the chart and agree that the record accurately reflects my personal performance of the history, physical exam, medical decision making, and the department course for this patient. I have also personally directed, reviewed, and agree with the discharge instructions and disposition.
[2017-12-15 15:47] LABS: TROPONIN I 0.226 ng/mL (0.00-0.120)
[2017-12-15] MEDS: Rosuvastatin Calcium 2.5 mg Tab PO SCH (21:29)
[2017-12-16] MEDS: Nitroglycerin 2% Ointment Foilpak UD TOP SCH ×4 (00:26→16:10)
[2017-12-16] MEDS: Albuterol-Ipratrop 3 mg / 0.5 (3 ml) UD INH SCH ×4 (01:13→20:38)
--- NOTE | 2017-12-16 03:04 | CON ---
DATE: REASON FOR CONSULTATION: Shortness of breath and elevated troponin. HISTORY OF PRESENT ILLNESS: The patient is an 87-year-old female who has a history of moderate to severe pulmonary hypertension who is treated for bilateral pneumonia, history of multinodular goiter, presented to the emergency room because of shortness of breath and was placed on BiPAP therapy. The patient denies any retrosternal chest pain. The history was obtained from the patient's daughter who was at the bedside; however, the son who is frequent visits with the patient, is not available to get any more detailed history. The patient denies any chest pain at this time and reports cough and sputum production. The patient denies any fever or chills. SOCIAL HISTORY: Nonsmoker. Lives by herself with frequent visits from one of her sons who lives nearby. MEDICATIONS: Aspirin 81 mg once a day, Crestor 2.5 mg once a day, albuterol inhaler every 6 hours, magnesium oxide 400 mg once a day, Protonix 40 mg intravenously once a day. REVIEW OF SYSTEMS: No reported fever or chills. No reported chest pain. No reported hypotension. No nausea or vomiting. No abdominal pain. PHYSICAL EXAMINATION: GENERAL: The patient is an elderly female who is mildly tachypneic, on BiPAP therapy. VITAL SIGNS: Blood pressure 150/99, heart rate 74, temperature 97.9, respirations 20. HEENT: Normocephalic. CHEST: Diminished breath sounds over the bases. HEART: S1, S2 regular. Grade 2/6 ejection systolic murmur over left sternal border. ABDOMEN: Soft. EXTREMITIES: 1+ pitting edema. LABORATORY DATA: SMA-7: Sodium 141, potassium 5, chloride 101, CO2 of 28, glucose 109, BUN 17, creatinine 1.4. Troponin 0.226. Pro-BNP 6,840. D-dimer is elevated at 637. PT, PTT and INR are within normal limits. Hemoglobin and hematocrit 12.7 and 38.1. White count and platelet count are within normal limits. Chest x-ray revealed right lower lobe infiltrate, possible bilateral small pleural effusion. EKG is not available yet EKG performed on 12/02/2017 revealed sinus rhythm with some nonspecific T-wave changes. ASSESSMENT: 1. Consider right lower lobe pneumonia with small bilateral pleural effusion. 2. Consider non ST elevation myocardial infarction. 3. Multinodular goiter. 4. Chronic renal insufficiency. RECOMMENDATIONS: Continue aspirin 81 mg once a day, Crestor 2.5 mg once a day. Restart subcutaneous heparin therapy as the patient is not a suitable candidate for beta-blockers at least at this time. Consider IV antibiotic therapy for presumptive pneumonia. Yoni Jorgensen MD
[2017-12-16 06:54] LABS: BASO # 0.1 K/uL (0.0-0.2); BASO % 1.4 % (0.0-2.0); EOS # 0.2 K/uL (0.0-0.7); EOS % 3.7 % (0.0-4.0); HEMOGLOBIN 11.4 g/dL (11.0-16.0); LYMPH # 1.9 K/uL (1.0-4.3); LYMPH % 29.5 % (20.0-40.0); MEAN CELL VOLUME 93.7 fL (81.0-99.0); MEAN CORPUSCULAR HEMOGLOBIN 31.2 pg (27.0-31.0); MEAN CORPUSCULAR HGB CONC 33.3 g/dL (33.0-37.0); MEAN PLATELET VOLUME 10.2 fL (7.2-11.7); MONO # 0.7 K/uL (0.0-0.8); MONO % 10.6 % (0.0-10.0); NEUT # 3.5 K/uL (1.8-7.0); NEUT % 54.8 % (50.0-75.0); NRBC % 0.1 % (0.0-2.0); RBC 3.66 Mil/uL (3.80-5.20); RED CELL DISTRIBUTION WIDTH 15.3 % (11.5-14.5); WHITE BLOOD COUNT 6.4 K/uL (4.8-10.8)
[2017-12-16 07:16] LABS: CALCIUM 8.7 mg/dl (8.6-10.4)
--- NOTE | 2017-12-16 08:33 | CP.PCM.CON ---
History of Present Illness - History of Present Illness History of Present Illness: CHART REVIEWED. PT SEEN AND EXAMINED. 87 YO HISP FEMALE WITH A HX CHF, COPD, HTN, HYPERLIPIDEMIA, ADM 12/15/17 WITH INCREASED MOD-SEVERE SOB AT REST X FEW DAYS. +COUGH NO SPUTUM., NO RELIEF WITH HOME NEB TX. NO FEVER. +CHEST AND LEFT SHOULDER PAINS. INCREASED LEG EDEMA BILAT. NO N/V NO DIARRHEA. RECENT ADM FOR CHF 2 WKS AGO. ?COMPLIANCE WITH MEDS. IN ER, PLACED ON BIPAP SUPPORT. Review of Systems - Review of Systems All systems: reviewed and no additional remarkable complaints except - Constitutional Constitutional: absent: Weight Loss - EENT Eyes: absent: Change in Vision Nose/Mouth/Throat: absent: Nasal Congestion - Cardiovascular Cardiovascular: Chest Pain, Dyspnea, Dyspnea on Exertion, Edema, Leg Edema - Respiratory Respiratory: Cough, Dyspnea on Exertion - Gastrointestinal Gastrointestinal: absent: Nausea, Vomiting - Genitourinary Genitourinary: absent: Difficulty Urinating, Dysuria - Musculoskeletal Musculoskeletal: absent: Joint Swelling - Integumentary Integumentary: absent: Rash - Neurological Neurological: absent: Confusion, Focal Weakness - Psychiatric Psychiatric: absent: Behavioral Changes - Endocrine Endocrine: absent: Excessive Sweating - Hematologic/Lymphatic Hematologic: absent: Easy Bleeding Past Patient History - Infectious Disease Hx of Infectious Diseases: None - Past Medical History & Family History Past Medical History?: Yes Past Family History: Reviewed and not pertinent - Past Social History Smoking Status: Former Smoker Chewing Tobacco Use: No Cigar Use: No Alcohol: None Drugs: Denies - CARDIAC Hx Hypercholesterolemia: Yes Hx Hypertension: Yes - PULMONARY Hx Chronic Obstructive Pulmonary Disease (COPD): Yes - NEUROLOGICAL Hx Neurological Disorder: No - HEENT Hx HEENT Problems: No - RENAL Hx Chronic Kidney Disease: No - ENDOCRINE/METABOLIC Hx Endocrine Disorders: No - HEMATOLOGICAL/ONCOLOGICAL Hx Blood Disorders: No - INTEGUMENTARY Hx Dermatological Problems: No - MUSCULOSKELETAL/RHEUMATOLOGICAL Hx Falls: No Hx Fractures: Yes (left wrist 3 weeks ago) - GASTROINTESTINAL Hx Gastrointestinal Disorders: No - GENITOURINARY/GYNECOLOGICAL Hx Genitourinary Disorders: No - PSYCHIATRIC Hx Psychophysiologic Disorder: No Hx Substance Use: No - SURGICAL HISTORY Hx Surgeries: Yes Hx Appendectomy: Yes - ANESTHESIA Hx Anesthesia: No Hx Anesthesia Reactions: No Meds Allergies/Adverse Reactions: Allergies Allergy/AdvReac Type Severity Reaction Status Date / Time meclizine Allergy Verified 11/27/17 13:36 lisinopril AdvReac Severe ANGIOEDEMA Verified 11/27/17 13:36 - Medications Medications: Current Medications Acetaminophen (Tylenol 325mg Tab) 650 mg PO Q6 PRN PRN Reason: Pain, moderate (4-7) Last Admin: 12/15/17 19:19 Dose: 650 mg Albuterol/Ipratropium (Duoneb 3 Mg/0.5 Mg (3 Ml) Ud) 3 ml INH RQ6 [facility] Last Admin: 12/16/17 07:32 Dose: 3 ml Amlodipine Besylate (Norvasc) 5 mg PO DAILY [facility] Last Admin: 12/15/17 19:20 Dose: 5 mg Aspirin (Aspirin Chewable) 81 mg PO DAILY [facility] Furosemide (Lasix) 20 mg IVP Q12 [facility] Last Admin: 12/15/17 21:29 Dose: 20 mg Heparin Sodium (Porcine) (Heparin) 5,000 units SC Q8 [facility] Last Admin: 12/16/17 05:46 Dose: 5,000 units Home Med (Levocetirizine Dihydrochloride [Levocetirizine Dihydrochloride]) 5 mg PO DAILY [facility] Magnesium Oxide (Mag-Ox) 400 mg PO DAILY [facility] Nitroglycerin (Nitro-Bid 2% Oint) 0.5 ea TOP Q6 [facility] Last Admin: 12/16/17 05:45 Dose: 0.5 ea Pantoprazole Sodium (Protonix Inj) 40 mg IVP DAILY [facility] Rosuvastatin Calcium (Crestor) 2.5 mg PO HS [facility] Last Admin: 12/15/17 21:29 Dose: 2.5 mg Physical Exam - Constitutional Appears: Chronically Ill - Head Exam Head Exam: ATRAUMATIC, NORMOCEPHALIC - Eye Exam Eye Exam: EOMI, Normal appearance - ENT Exam ENT Exam: Mucous Membranes Moist - Neck Exam Neck exam: Negative for: Tenderness - Respiratory Exam Respiratory Exam: Decreased Breath Sounds, Rales, Rhonchi - Cardiovascular Exam Cardiovascular Exam: RRR, +S1, +S2 - GI/Abdominal Exam GI & Abdominal Exam: Soft. absent: Tenderness - Rectal Exam Rectal Exam: Deferred - Extremities Exam Extremities exam: Positive for: pedal edema - Back Exam Back exam: absent: CVA tenderness (L), CVA tenderness (R) - Neurological Exam Neurological exam: Alert, CN II-XII Intact, Oriented x3 - Psychiatric Exam Psychiatric exam: Normal Affect - Skin Skin Exam: Rash Results - Vital Signs Recent Vital Signs: Last Vital Signs Temp 98.1 F 12/15/17 23:20 Pulse 72 12/16/17 07:55 Resp 20 12/15/17 23:20 BP 132/87 12/15/17 23:20 Pulse Ox 97 12/15/17 23:20 - Labs Result Diagrams: 12/16/17 06:45 12/16/17 06:45 Labs: Laboratory Results - last 24 hr 12/15/17 12/15/17 12/15/17 14:42 14:42 14:42 WBC 9.4 RBC 4.09 Hgb 12.7 Hct 38.1 MCV 93.2 MCH 31.0 MCHC 33.3 RDW 15.7 H Plt Count 302 D MPV 9.7 Neut % (Auto) 83.7 H Lymph % (Auto) 8.9 L [place] % (Auto) 5.5 Eos % (Auto) 0.7 Baso % (Auto) 1.2 Neut # (Auto) 7.9 H Lymph # (Auto) 0.8 L [place] # (Auto) 0.5 Eos # (Auto) 0.1 Baso # (Auto) 0.1 Neutrophils % (Manual) 81 H Lymphocytes % (Manual) 10 L Monocytes % (Manual) 9 Platelet Estimate Normal PT 11.6 INR 1.0 APTT 31 Sodium 141 Potassium 5.0 Chloride 101 Carbon Dioxide 28 Anion Gap 17 BUN 17 Creatinine 1.4 H Est GFR ( Amer) 43 Est GFR (Non-Af Amer) 35 POC Glucose (mg/dL) Random Glucose 109 H Calcium 9.3 Total Bilirubin 0.9 AST 43 H D ALT 41 Alkaline Phosphatase 98 Troponin I 0.2260 H* NT-Pro-B Natriuret Pep 6840 H Total Protein 7.1 Albumin 3.9 Globulin 3.2 Albumin/Globulin Ratio 1.2 Urine Color Urine Clarity Urine pH Ur Specific [place] Urine Protein Urine Glucose (UA) Urine Ketones Urine Blood Urine Nitrate Urine Bilirubin Urine Urobilinogen Ur Leukocyte Esterase Urine RBC (Auto) Ur Squamous Epith Cells 12/15/17 12/15/17 12/16/17 15:15 22:10 02:08 WBC RBC Hgb Hct MCV MCH MCHC RDW Plt Count MPV Neut % (Auto) Lymph % (Auto) [place] % (Auto) Eos % (Auto) Baso % (Auto) Neut # (Auto) Lymph # (Auto) [place] # (Auto) Eos # (Auto) Baso # (Auto) Neutrophils % (Manual) Lymphocytes % (Manual) Monocytes % (Manual) Platelet Estimate PT INR APTT Sodium Potassium Chloride Carbon Dioxide Anion Gap BUN Creatinine Est GFR ( Amer) Est GFR (Non-Af Amer) POC Glucose (mg/dL) 99 Random Glucose Calcium Total Bilirubin AST ALT Alkaline Phosphatase Troponin I 0.2550 H* NT-Pro-B Natriuret Pep Total Protein Albumin Globulin Albumin/Globulin Ratio Urine Color Colorless Urine Clarity Clear Urine pH 7.0 Ur Specific [place] 1.004 Urine Protein Negative Urine Glucose (UA) Normal Urine Ketones Negative Urine Blood Negative Urine Nitrate Negative Urine Bilirubin Negative Urine Urobilinogen Normal Ur Leukocyte Esterase Neg Urine RBC (Auto) 1 Ur Squamous Epith Cells < 1 12/16/17 12/16/17 06:45 06:45 WBC 6.4 RBC 3.66 L Hgb 11.4 Hct 34.3 MCV 93.7 MCH 31.2 H MCHC 33.3 RDW 15.3 H Plt Count 245 MPV 10.2 Neut % (Auto) 54.8 Lymph % (Auto) 29.5 [place] % (Auto) 10.6 H Eos % (Auto) 3.7 Baso % (Auto) 1.4 Neut # (Auto) 3.5 Lymph # (Auto) 1.9 [place] # (Auto) 0.7 Eos # (Auto) 0.2 Baso # (Auto) 0.1 Neutrophils % (Manual) Lymphocytes % (Manual) Monocytes % (Manual) Platelet Estimate PT INR APTT Sodium 142 Potassium 4.3 Chloride 103 Carbon Dioxide 29 Anion Gap 13 BUN 18 H Creatinine 1.5 H Est GFR ( Amer) 40 Est GFR (Non-Af Amer) 33 POC Glucose (mg/dL) Random Glucose 84 Calcium 8.7 Total Bilirubin AST ALT Alkaline Phosphatase Troponin I NT-Pro-B Natriuret Pep Total Protein Albumin Globulin Albumin/Globulin Ratio Urine Color Urine Clarity Urine pH Ur Specific [place] Urine Protein Urine Glucose (UA) Urine Ketones Urine Blood Urine Nitrate Urine Bilirubin Urine Urobilinogen Ur Leukocyte Esterase Urine RBC (Auto) Ur Squamous Epith Cells Assessment & Plan (1) COPD exacerbation Status: Acute (2) Acute coronary syndrome Status: Acute (3) Hypertension Status: Acute (4) Hyperlipidemia Status: Acute (5) Respiratory failure with hypoxia Status: Acute (6) Chronic congestive heart failure Status: Acute - Assessment and Plan (Free Text) Assessment: 87 YO FEMALE WITH A HX MULT MED PROBS ADM WITH INCREASED ACUTE HYPOXIC RESP FAILURE +CHF ON CXR R/O ACS, COPD EXAC. CONT NEB BD., MONITOR O2 SAT. BIPAP SUPPORT., CXR REVIEWED. DIURESIS TOLERATED. F/U ECHO. PFT'S WHEN STABLE. GI/ DVT PROPHYLAXIS. PROG GUARDED. DISCUSSED WITH STAFF AT LENGTH.
--- NOTE | 2017-12-16 09:47 | US ---
PROCEDURE: Ultrasound of the Kidneys HISTORY: Gera COMPARISON: None available. TECHNIQUE: Sonogram of the kidneys. FINDINGS: RIGHT KIDNEY: Measures: 8.7 x 4.1 x 4.0 cm. Normal in size, contour and echogenicity. No stone, solid mass lesion or hydronephrosis visualized. LEFT KIDNEY: Measures: 7.4 x 4.3 x 3.8 cm. Upper pole cyst measuring 1.4 x 1.2 x 1.2 cm. Lower pole cyst measuring 2.2 x 1.9 x 1.8 cm. Normal in size, contour and echogenicity. No stone, solid mass lesion or hydronephrosis visualized. OTHER FINDINGS: Urinary bladder collapsed around a Weinberg catheter. IMPRESSION: Left renal cysts.
[2017-12-16] MEDS: Magnesium Oxide 400 mg Tab UD PO SCH (10:34)
--- NOTE | 2017-12-16 18:58 | CT ---
PROCEDURE: CT Chest without contrast HISTORY: Pneumonia COMPARISON: Comparison made with chest radiograph obtained 12/15/2017. Sergio. TECHNIQUE: Contiguous axial images were obtained through the chest without intravenous contrast enhancement. Sagittal and coronal reconstructions were performed. Radiation dose (DLP): 528.55 mGy-cm. This CT exam was performed using one or more of the following dose reduction techniques: Automated exposure control, adjustment of the mA and/or kV according to patient size, and/or use of iterative reconstruction technique. FINDINGS: LUNGS: The current study re- demonstrates to better advantage large right and moderate size left-sided effusion . Increased of pulmonary vascular congestion with ground-glass opacities. Findings suggest mild CHF. Clinical correlation recommended. Bibasilar atelectasis present as well. MEDIASTINUM: Heart is enlarged. No significant pericardial effusion. Ascending thoracic aorta measures approximately 3.4 cm and descending thoracic aorta measures approximately 2.7 cm. Pulmonary trunk measures approximately 3.36 cm. There are a few small nonspecific mediastinal lymph nodes. Largest of which is located in the AP window measuring approximately 12.1 mm. Evaluation for hilar adenopathy is limited due to the lack of circulating intravenous contrast material. Central airways are midline and patent. No large central endoluminal lesions. PLEURA: As above. No pneumothorax. BONES: Minor multilevel degenerative spondylosis of the thoracic spine. There are no acute compression fractures no retropulsed fragments. . There is mild dextroscoliosis of the upper thoracic region. UPPER ABDOMEN: Grossly unremarkable. OTHER FINDINGS: There appears to be mild enlargement of the thyroid gland with multiple calcifications. Consider followup thyroid ultrasound or nuclear isotope imaging. IMPRESSION: Large right and moderate size left-sided effusion with bibasilar atelectasis. Increased vascularity with ground-glass opacities consistent with pulmonary edema/CHF. Cardiomegaly.
[2017-12-16] MEDS: Rosuvastatin Calcium 2.5 mg Tab PO SCH (21:36)
[2017-12-17] MEDS: Albuterol-Ipratrop 3 mg / 0.5 (3 ml) UD INH SCH ×5 (01:18→19:46)
[2017-12-17] MEDS: Nitroglycerin 2% Ointment Foilpak UD TOP SCH ×4 (06:06→17:59)
--- NOTE | 2017-12-17 06:36 | HP ---
HISTORY OF PRESENT ILLNESS: The patient is an 87 years old female who came to my office. The patient was complaining of some shortness of breath and feels very tired. The patient was recently admitted because of CSF, and on evaluation, the patient was found to have a borderline O2 saturation in the range of 90 to 92, and the patient was advised to go to the hospital and the patient chose to go by EMS. The patient went to the hospital with son. ALLERGIES: THE PATIENT IS ALLERGIC TO LISINOPRIL AND MECLIZINE. MEDICATIONS: The patient was taking different medications including Lasix, was taking some Protonix, and also the patient was taking albuterol and amlodipine. SOCIAL HISTORY: The patient lives with his family and have children. FAMILY HISTORY: No inherited disease. REVIEW OF SYSTEMS: RESPIRATORY SYSTEM: The patient is having shortness of breath and also complaining of some discomfort in the abdomen. CARDIOVASCULAR: The patient denied any chest pain but admits to having some palpitation. GI: As I stated, some discomfort in abdomen and constipation. : Denied any dysuria. NEUROLOGIC: The patient is diffusely weak. PHYSICAL EXAMINATION: GENERAL: The patient is alert, awake, able to speak full sentence. VITAL SIGNS: Blood pressure was somewhat elevated in the emergency room but now the blood pressure is 119/71, pulse 72, respirations 20. This is after medication. LUNGS: There are some rales bilaterally. HEART: Regular rate and rhythm. Positive murmur. ABDOMEN: Soft, mild epigastric tenderness. Positive bowel sounds. EXTREMITIES: There is +1 pitting edema. The patient has some test done. WBC was 9.4, hemoglobin 12.7, hematocrit 38.1, and platelets 302. Chemistry showed that the sodium is 141, potassium is 5, and chloride 101, bicarb 28, BUN 17, creatinine 1.4, AST is 43, ALT 41, and alkaline phosphatase is 98. BNP was 6840 but the troponin was somewhat elevated at 0.226 and 0.2550 and also the coagulation showed PT is 11.6, INR 1, and PTT is 31. Bilirubin is somewhat negative. Also, the patient had chest x-ray that was significant for pulmonary congestion with some small bilateral pleural effusion. DIAGNOSIS: The patient is admitted with diagnoses of exacerbation of congestive heart failure, hypertension, arthritis, and the patient will have a consult with Dr. Jorgensen, Cardiology, and later on will have a consult Dr. Delacruz because the patient was found to have large pleural effusion and shortness of breath, so the case was discussed and reviewed with TRINH Lopez, the nurse practitioner. Jeb Hart MD
[2017-12-17 07:50] LABS: BASO # 0.1 K/uL (0.0-0.2); EOS # 0.3 K/uL (0.0-0.7); EOS % 4.1 % (0.0-4.0); HEMOGLOBIN 11.6 g/dL (11.0-16.0); LYMPH # 1.4 K/uL (1.0-4.3); LYMPH % 17.7 % (20.0-40.0); MEAN CELL VOLUME 93.7 fL (81.0-99.0); MEAN CORPUSCULAR HEMOGLOBIN 31.2 pg (27.0-31.0); MEAN CORPUSCULAR HGB CONC 33.3 g/dL (33.0-37.0); MEAN PLATELET VOLUME 10.2 fL (7.2-11.7); MONO # 0.8 K/uL (0.0-0.8); MONO % 10.5 % (0.0-10.0); NEUT # 5.3 K/uL (1.8-7.0); NEUT % 66.7 % (50.0-75.0); RBC 3.73 Mil/uL (3.80-5.20); RED CELL DISTRIBUTION WIDTH 15.7 % (11.5-14.5)
[2017-12-17 07:55] LABS: CALCIUM 8.8 mg/dl (8.6-10.4)
--- NOTE | 2017-12-17 10:17 | CP.PCM.PN ---
Subjective - Date & Time of Evaluation Date of Evaluation: 12/17/17 Time of Evaluation: 10:14 - Subjective Subjective: PT ALERT, +SAL/., LESS COUGH., ROS; OTHERWISE NEG Objective - Vital Signs/Intake and Output Vital Signs (last 24 hours): Temp Pulse Resp BP Pulse Ox 97.4 F L 80 20 135/79 96 12/17/17 08:34 12/17/17 08:34 12/17/17 08:34 12/17/17 08:34 12/17/17 08:34 Intake and Output: 12/17/17 12/17/17 06:59 18:59 Intake Total 200 200 Output Total 600 Balance 200 -400 - Medications Medications: Current Medications Acetaminophen (Tylenol 325mg Tab) 650 mg PO Q6 PRN PRN Reason: Pain, moderate (4-7) Last Admin: 12/15/17 19:19 Dose: 650 mg Albuterol/Ipratropium (Duoneb 3 Mg/0.5 Mg (3 Ml) Ud) 3 ml INH RQ6 [facility] Last Admin: 12/17/17 07:29 Dose: 3 ml Amlodipine Besylate (Norvasc) 5 mg PO DAILY [facility] Last Admin: 12/16/17 10:35 Dose: 5 mg Aspirin (Aspirin Chewable) 81 mg PO DAILY [facility] Last Admin: 12/16/17 10:34 Dose: 81 mg Furosemide (Lasix) 20 mg IVP Q12 [facility] Last Admin: 12/16/17 21:35 Dose: 20 mg Heparin Sodium (Porcine) (Heparin) 5,000 units SC Q8 [facility] Last Admin: 12/17/17 06:09 Dose: 5,000 units Home Med (Levocetirizine Dihydrochloride [Levocetirizine Dihydrochloride]) 5 mg PO DAILY [facility] Lactulose (Enulose) 20 gm PO DAILY [facility] Last Admin: 12/16/17 17:30 Dose: Not Given Magnesium Oxide (Mag-Ox) 400 mg PO DAILY [facility] Last Admin: 12/16/17 10:34 Dose: 400 mg Nitroglycerin (Nitro-Bid 2% Oint) 0.5 ea TOP Q6 [facility] Last Admin: 12/17/17 06:06 Dose: 0.5 ea Pantoprazole Sodium (Protonix Inj) 40 mg IVP DAILY [facility] Last Admin: 12/16/17 10:35 Dose: 40 mg Rosuvastatin Calcium (Crestor) 2.5 mg PO HS [facility] Last Admin: 12/16/17 21:36 Dose: 2.5 mg - Labs Labs: 12/17/17 07:39 12/17/17 07:39 PT 11.6 SECONDS (9.7-12.2) 12/15/17 14:42 INR 1.0 12/15/17 14:42 APTT 31 SECONDS (21-34) 12/15/17 14:42 - Constitutional Appears: Chronically Ill - Head Exam Head Exam: ATRAUMATIC, NORMOCEPHALIC - Eye Exam Eye Exam: EOMI, Normal appearance - ENT Exam ENT Exam: Mucous Membranes Moist - Neck Exam Neck Exam: absent: Tenderness - Respiratory Exam Respiratory Exam: Decreased Breath Sounds, Rales. absent: Wheezes - Cardiovascular Exam Cardiovascular Exam: RRR, +S1, +S2 - GI/Abdominal Exam GI & Abdominal Exam: Soft. absent: Tenderness - Rectal Exam Rectal Exam: Deferred - Extremities Exam Extremities Exam: absent: Calf Tenderness, Pedal Edema - Back Exam Back Exam: absent: CVA tenderness (L), CVA tenderness (R) - Neurological Exam Neurological Exam: Alert, Awake, CN II-XII Intact, Normal Gait, Oriented x3 - Psychiatric Exam Psychiatric exam: Normal Mood - Skin Skin Exam: absent: Rash Assessment and Plan (1) COPD exacerbation Status: Acute (2) Acute coronary syndrome Status: Acute (3) Hypertension Status: Acute (4) Hyperlipidemia Status: Acute (5) Respiratory failure with hypoxia Status: Acute (6) Chronic congestive heart failure Status: Acute - Assessment and Plan (Free Text) Assessment: RESP STATUS NO SIG CHANGE., AFEBRILE., CONT NEB BD., MONITOR O2 SAT. TOLERATING O2 4L. CT CHEST REVIEWED +CHF WITH BILAT PL. EFF RIGHT>LEFT., CONT DIURESIS TOLERATED. PROG GUARDED. DISCUSSED WITH STAFF AT LENGTH.
[2017-12-17] MEDS: Magnesium Oxide 400 mg Tab UD PO SCH (10:22)
[2017-12-17] MEDS ORDERED: Oxycodone/Acetaminophen 5/325 mg Tab PO STA (14:27)
--- NOTE | 2017-12-17 17:18 | VASCLAB ---
PROCEDURE: Right Lower Extremity Venous Duplex Exam. HISTORY: r/o DVT PRIORS: None. TECHNIQUE: Right common femoral, femoral, popliteal and posterior tibial, peroneal and great saphenous veins were evaluated. Flow was assessed with color Doppler, compressibility, assessment of phasic flow and augmentation response. Report prepared by LETICIA Lainez, RVT FINDINGS: RIGHT: 1. Common Femoral Vein: 1.1. Compressibility - Fully compressible: Thrombus - None: Flow - Phasic: Augmentation -Normal: Reflux - None. 2. Femoral Vein: 2.1. Compressibility - Fully compressible: Thrombus - None: Flow - Phasic: Augmentation -Normal: Reflux - None. 3. Popliteal Vein: 3.1. Compressibility - Fully compressible: Thrombus - None: Flow - Phasic: Augmentation -Normal: Reflux - None. 4. Posterior Tibial Vein: 4.1. Compressibility - Fully compressible: Thrombus - None: Flow - Phasic: Augmentation -Normal: Reflux - None. 5. Peroneal Vein: 5.1. Compressibility - Fully compressible: Thrombus - None: Flow - Phasic: Augmentation -Normal: Reflux - None. 6. Great Saphenous Vein: 6.1. Compressibility - Fully compressible: Thrombus -None: Flow - Phasic: Augmentation - Normal: Reflux - None. OTHER FINDINGS: IMPRESSION: No evidence of deep or superficial vein thrombosis of the right lower extremity with excellent venous flow. Normal valve function noted of the right side. Normal venous flow noted in the left common femoral vein.
[2017-12-17] MEDS: Rosuvastatin Calcium 2.5 mg Tab PO SCH (21:52)
[2017-12-18] MEDS: Nitroglycerin 2% Ointment Foilpak UD TOP SCH ×4 (00:09→18:39)
[2017-12-18] MEDS: Albuterol-Ipratrop 3 mg / 0.5 (3 ml) UD INH SCH ×4 (01:17→19:22)
--- NOTE | 2017-12-18 02:00 | PN ---
DATE: SUBJECTIVE: Today, the patient is more alert and awake, still complaining of some shortness of breath on exertion, and denies any chest pain or palpation although presenting with occasional cough, and the patient denied any constipation. PHYSICAL EXAMINATION: VITAL SIGNS: Blood pressure of 123/62, pulse 75, respirations 20, temperature 97.4. NECK: Supple. No JVD. LUNGS: There are some fine rales heard at the bases. HEART: Regular rate and rhythm. Positive murmur. ABDOMEN: Soft and nontender. No palpable mass. EXTREMITIES: There is pretibial edema. LABORATORY DATA: The patient had blood test done today and the WBC is 8.8, hemoglobin 11.6, hematocrit 34.9, and platelet is 226. Chemistry showed that the sodium is 141, potassium of 4, chloride is 101, bicarb is 31, BUN 18, creatinine 1.2, GFR is 61, glucose is 91, and calcium 8.8. ASSESSMENT AND PLAN: We will continue the Lasix and the current medications that will be ordered tomorrow. The patient has a Duplex scan of the lower extremities that showed no DVT noted in the lower extremity. The case was reviewed and discussed with, Kanwal Calix, the nurse practitioner. Jeb Hart MD
--- NOTE | 2017-12-18 07:59 | CARD ---
APPROVED REPORT EKG Measurement Heart [id number] QT0T0 QTc0 <Conclusion> No QRS complexes found, no ECG analysis possible
[2017-12-18] MEDS: Magnesium Oxide 400 mg Tab UD PO SCH (09:33)
--- NOTE | 2017-12-18 10:44 | CARD ---
APPROVED REPORT EKG Measurement Heart [id number] <Conclusion> Sinus rhythm with occasional premature ventricular complexes and premature atrial complexes Nonspecific ST and T wave abnormality Abnormal ECG
--- NOTE | 2017-12-18 14:06 | PN ---
DATE: SUBJECTIVE: The patient denies any right leg or foot pain today. She denies any chest pain. She denies any shortness of breath. PHYSICAL EXAMINATION VITAL SIGNS: Blood pressure 115/71, heart rate 70, temperature 98, respirations 18. HEENT: Normocephalic. CHEST: Absent breath sounds over the bases. HEART: S1 and S2 regular. ABDOMEN: Soft. EXTREMITIES: Trace pedal edema. No palpable right dorsalis pedis pulse, however, no acute ischemic changes. Venous Doppler of right lower extremity performed yesterday was negative for DVT. ASSESSMENT: 1. Non-ST elevation myocardial infarction. 2. Multinodular goiter. 3. Bilateral pleural effusions, large right, moderate left, with bibasilar atelectasis. 4. Pulmonary edema, such as interstitial lung disease. 5. Rule out peripheral vascular disease. 6. Moderate diffuse pulmonary hypertension. RECOMMENDATIONS: Continue aspirin 81 mg once a day, Crestor 2.5 mg once a day, subcutaneous heparin 5000 units every 8 hours, Lasix 20 mg intravenous twice a day, Norvasc 5 mg once a day. Obtain arterial Doppler of the right lower extremity. Obtain TSH level. Yoni Jorgensen MD
--- NOTE | 2017-12-18 15:21 | CP.PCM.PN ---
Subjective - Date & Time of Evaluation Date of Evaluation: 12/18/17 Time of Evaluation: 15:17 - Subjective Subjective: PT AWAKE, OOB IN CHAIR. ROS; OTHERWISE Objective - Vital Signs/Intake and Output Vital Signs (last 24 hours): Temp Pulse Resp BP Pulse Ox 98.0 F 70 18 110/70 98 12/18/17 08:15 12/18/17 08:15 12/18/17 08:15 12/18/17 11:12 12/18/17 08:15 Intake and Output: 12/18/17 12/18/17 06:59 18:59 Intake Total 450 400 Balance 450 400 - Medications Medications: Current Medications Acetaminophen (Tylenol 325mg Tab) 650 mg PO Q6 PRN PRN Reason: Pain, moderate (4-7) Last Admin: 12/15/17 19:19 Dose: 650 mg Albuterol/Ipratropium (Duoneb 3 Mg/0.5 Mg (3 Ml) Ud) 3 ml INH RQ6 [facility] Last Admin: 12/18/17 13:59 Dose: Not Given Amlodipine Besylate (Norvasc) 5 mg PO DAILY [facility] Last Admin: 12/18/17 09:34 Dose: 5 mg Aspirin (Aspirin Chewable) 81 mg PO DAILY [facility] Last Admin: 12/18/17 09:33 Dose: 81 mg Furosemide (Lasix) 20 mg IVP Q12 [facility] Last Admin: 12/18/17 11:12 Dose: 20 mg Heparin Sodium (Porcine) (Heparin) 5,000 units SC Q8 [facility] Last Admin: 12/18/17 13:07 Dose: 5,000 units Home Med (Levocetirizine Dihydrochloride [Levocetirizine Dihydrochloride]) 5 mg PO DAILY [facility] Lactulose (Enulose) 20 gm PO DAILY [facility] Last Admin: 12/18/17 09:33 Dose: 20 gm Magnesium Oxide (Mag-Ox) 400 mg PO DAILY [facility] Last Admin: 12/18/17 09:33 Dose: 400 mg Nitroglycerin (Nitro-Bid 2% Oint) 0.5 ea TOP Q6 [facility] Last Admin: 12/18/17 12:06 Dose: 0.5 ea Pantoprazole Sodium (Protonix Ec Tab) 40 mg PO DAILY [facility] Rosuvastatin Calcium (Crestor) 2.5 mg PO HS [facility] Last Admin: 12/17/17 21:52 Dose: 2.5 mg - Labs Labs: 12/17/17 07:39 12/17/17 07:39 PT 11.6 SECONDS (9.7-12.2) 12/15/17 14:42 INR 1.0 12/15/17 14:42 APTT 31 SECONDS (21-34) 12/15/17 14:42 - Constitutional Appears: Chronically Ill - Head Exam Head Exam: ATRAUMATIC, NORMOCEPHALIC - Eye Exam Eye Exam: EOMI, Normal appearance - ENT Exam ENT Exam: Mucous Membranes Moist - Neck Exam Neck Exam: absent: Tenderness - Respiratory Exam Respiratory Exam: Rhonchi - Cardiovascular Exam Cardiovascular Exam: RRR, +S1, +S2 - GI/Abdominal Exam GI & Abdominal Exam: Soft. absent: Tenderness - Rectal Exam Rectal Exam: Deferred - Extremities Exam Extremities Exam: absent: Calf Tenderness, Pedal Edema - Back Exam Back Exam: absent: CVA tenderness (L), CVA tenderness (R) - Neurological Exam Neurological Exam: Alert, Awake, CN II-XII Intact, Oriented x3 - Psychiatric Exam Psychiatric exam: Normal Mood - Skin Skin Exam: absent: Rash Assessment and Plan (1) COPD exacerbation Status: Acute (2) Acute coronary syndrome Status: Acute (3) Hypertension Status: Acute (4) Hyperlipidemia Status: Acute (5) Respiratory failure with hypoxia Status: Acute (6) Chronic congestive heart failure Status: Acute - Assessment and Plan (Free Text) Assessment: RESP STATUS NO SIG CHANGE. MONITOR O2 SAT. CONT NEB BD. CONT PULM TOILET. CXR REVIEWED. DIURESIS TOLERATED. LE DOPPLER NEG DVT. PROG POOR. DISCUSSED WITH STAFF.
[2017-12-18] MEDS: Rosuvastatin Calcium 2.5 mg Tab PO SCH (22:34)
[2017-12-19] MEDS: Nitroglycerin 2% Ointment Foilpak UD TOP SCH ×5 (00:21→23:57)
[2017-12-19] MEDS: Albuterol-Ipratrop 3 mg / 0.5 (3 ml) UD INH SCH ×4 (01:31→20:23)
--- NOTE | 2017-12-19 01:58 | PN ---
DATE: 12/18/2017 SUBJECTIVE: Today, the patient is alert and awake and denies any shortness of breath at rest, but admits having some shortness of breath on exertion and decrease of cough and no dizziness but generalized weakness. PHYSICAL EXAMINATION: VITAL SIGNS: The patient has blood pressure of 118/71, pulse 70, respirations 20, temperature 98 degrees Fahrenheit. NECK: Supple. No JVD at this time. LUNGS: Rales bilaterally heard at the bases. HEART: Regular rate and rhythm. Positive murmur. ABDOMEN: Soft and nontender. No palpable mass. EXTREMITIES: There is no edema now. LABORATORY DATA: The patient had blood test done. WBC 8, hemoglobin 11.6, hematocrit 34.9, and platelet 226. Chemistry showed the sodium is 141, potassium 4, chloride 101, bicarb is 31, BUN is 18, creatinine 1.2, bicarb is 31, glucose is 91, and calcium 8.8. ASSESSMENT AND PLAN: So the plan is that we are going to continue the patient on Lasix and the current medications, but we will plan to decrease the furosemide to 20 daily and a chest x-ray will be ordered for tomorrow. The case was reviewed and discussed with Kanwal Calix, the nurse practitioner. Jeb Hart MD
[2017-12-19 06:57] LABS: ALB/GLOB RATIO 1.1 (1.0-2.1); ALBUMIN 3.2 g/dL (3.5-5.0)
--- NOTE | 2017-12-19 10:14 | RAD ---
Chest x-ray two views History: Follow-up. Comparison: 12/15/2017 Findings: Moderate venous congestion. Left midlung atelectasis. Biapical pleural thickening with upper lobe granulomatous changes. Small bilateral pleural effusions. Patchy consolidative changes at the bilateral lung bases ; left greater than right. Calcification at the aortic knob. Degenerative changes in the spine and shoulders. Radiopaque density projects over the right neck, nonspecific. Clinical correlation. Possibly external. Impression: Biapical pleural thickening. Mild venous congestion. Bilateral hilar prominence. Calcification at the aortic knob. Degenerative changes in the spine with paravertebral osteophytes. Small nodular density at the left lung base. Top normal heart size.
[2017-12-19] MEDS: Magnesium Oxide 400 mg Tab UD PO SCH (10:37)
[2017-12-19] MEDS: Pantoprazole 40 mg EC Tab PO SCH (10:37)
--- NOTE | 2017-12-19 15:00 | CP.PCM.PN ---
Subjective - Date & Time of Evaluation Date of Evaluation: 12/19/17 Time of Evaluation: 14:57 - Subjective Subjective: PT ALERT, FEELS SL BETTER. LESS COUGH., ROS; OTHERWISE NEG. Objective - Vital Signs/Intake and Output Vital Signs (last 24 hours): Temp Pulse Resp BP Pulse Ox 97.7 F 85 20 127/79 97 12/19/17 08:58 12/19/17 12:15 12/19/17 08:58 12/19/17 12:15 12/19/17 08:58 Intake and Output: 12/19/17 12/19/17 06:59 18:59 Intake Total 200 Balance 200 - Medications Medications: Current Medications Acetaminophen (Tylenol 325mg Tab) 650 mg PO Q6 PRN PRN Reason: Pain, moderate (4-7) Last Admin: 12/15/17 19:19 Dose: 650 mg Albuterol/Ipratropium (Duoneb 3 Mg/0.5 Mg (3 Ml) Ud) 3 ml INH RQ6 [facility] Last Admin: 12/19/17 14:02 Dose: 3 ml Amlodipine Besylate (Norvasc) 5 mg PO DAILY [facility] Last Admin: 12/19/17 10:37 Dose: 5 mg Aspirin (Aspirin Chewable) 81 mg PO DAILY [facility] Last Admin: 12/19/17 10:36 Dose: 81 mg Furosemide (Lasix) 20 mg IVP DAILY [facility] Last Admin: 12/19/17 10:36 Dose: 20 mg Heparin Sodium (Porcine) (Heparin) 5,000 units SC Q8 [facility] Last Admin: 12/19/17 13:44 Dose: 5,000 units Lactulose (Enulose) 20 gm PO DAILY [facility] Last Admin: 12/19/17 10:36 Dose: 20 gm Loratadine (Claritin) 10 mg PO DAILY [facility] Last Admin: 12/19/17 10:36 Dose: 10 mg Magnesium Oxide (Mag-Ox) 400 mg PO DAILY [facility] Last Admin: 12/19/17 10:37 Dose: 400 mg Nitroglycerin (Nitro-Bid 2% Oint) 0.5 ea TOP Q6 [facility] Last Admin: 12/19/17 12:17 Dose: 0.5 ea Pantoprazole Sodium (Protonix Ec Tab) 40 mg PO DAILY [facility] Last Admin: 12/19/17 10:37 Dose: 40 mg Rosuvastatin Calcium (Crestor) 2.5 mg PO HS [facility] Last Admin: 12/18/17 22:34 Dose: 2.5 mg - Labs Labs: 12/17/17 07:39 12/19/17 06:29 PT 11.6 SECONDS (9.7-12.2) 12/15/17 14:42 INR 1.0 12/15/17 14:42 APTT 31 SECONDS (21-34) 12/15/17 14:42 - Constitutional Appears: No Acute Distress, Chronically Ill - Head Exam Head Exam: ATRAUMATIC, NORMOCEPHALIC - Eye Exam Eye Exam: EOMI, Normal appearance - ENT Exam ENT Exam: Mucous Membranes Moist - Neck Exam Neck Exam: absent: Tenderness, Thyromegaly - Respiratory Exam Respiratory Exam: Decreased Breath Sounds, Rales. absent: Wheezes - Cardiovascular Exam Cardiovascular Exam: RRR, +S1, +S2 - GI/Abdominal Exam GI & Abdominal Exam: Soft. absent: Tenderness - Rectal Exam Rectal Exam: Deferred - Extremities Exam Extremities Exam: absent: Calf Tenderness, Pedal Edema - Back Exam Back Exam: absent: CVA tenderness (L), CVA tenderness (R) - Neurological Exam Neurological Exam: Alert, Awake, CN II-XII Intact, Oriented x3 - Psychiatric Exam Psychiatric exam: Normal Mood - Skin Skin Exam: absent: Rash Assessment and Plan (1) COPD exacerbation Status: Acute (2) Acute coronary syndrome Status: Acute (3) Hypertension Status: Acute (4) Hyperlipidemia Status: Acute (5) Respiratory failure with hypoxia Status: Acute (6) Chronic congestive heart failure Status: Acute - Assessment and Plan (Free Text) Assessment: RESP STATUS IMPROVING SLOWLY, O2 SAT 96% ON 2L NOW., CONT PULM TOILET., NEB BD. , CXR REVIEWED, DECREASED PLEURAL EFF BILAT., CONT DIURESIS TOLERATED. CT CHEST DONE 12/16/17 NO NODULES. PROG GUARDED. DISCUSSED WITH STAFF AND FAMILY AT BEDSIDE.
--- NOTE | 2017-12-19 16:45 | PN ---
DATE: SUBJECTIVE: The patient denies any leg pain, chest pain, or shortness of breath. PHYSICAL EXAMINATION VITAL SIGNS: Blood pressure 127/79, heart rate 85, temperature 97.7, respirations 20. HEENT: Normocephalic. CHEST: Clear. HEART: S1 and S2 regular. EXTREMITIES: Trace edema. LABORATORY DATA: Today's BUN and creatinine are 19 and 1.3 respectively. [id number] is 32. The rest of SMA-7 is within normal limits. Arterial Doppler of the lower extremity was performed; however, the report is still pending. ASSESSMENT: 1. Non-ST elevation myocardial infarction. 2. Bilateral pleural effusion. Today's chest x-ray revealed resolution of the right pleural effusion with a small left pleural effusion. 3. Rule out peripheral vascular disease. 4. Multinodular goiter. was performed yesterday, was within normal limits. RECOMMENDATIONS: Continue current aspirin, Crestor, subcutaneous heparin, IV Lasix. I will follow official report of arterial Doppler of lower extremity and I have ordered 12-lead EKG today as the patient was reported to be bradycardic yesterday. Yoni Jorgensen MD
[2017-12-19 20:44] LABS: CK-MB 0.47 ng/mL (0.0-3.38)
[2017-12-19] MEDS: Rosuvastatin Calcium 2.5 mg Tab PO SCH (23:18)
[2017-12-20] MEDS: Albuterol-Ipratrop 3 mg / 0.5 (3 ml) UD INH SCH ×4 (01:22→20:42)
[2017-12-20] MEDS: Nitroglycerin 2% Ointment Foilpak UD TOP SCH ×3 (06:09→18:05)
[2017-12-20 08:49] LABS: BASO % 0.3 % (0.0-2.0); EOS # 0.2 K/uL (0.0-0.7); EOS % 2.7 % (0.0-4.0); HEMOGLOBIN 11.1 g/dL (11.0-16.0); LYMPH # 1.5 K/uL (1.0-4.3); LYMPH % 17.8 % (20.0-40.0); MEAN CELL VOLUME 94.3 fL (81.0-99.0); MEAN CORPUSCULAR HEMOGLOBIN 31.1 pg (27.0-31.0); MEAN CORPUSCULAR HGB CONC 32.9 g/dL (33.0-37.0); MONO # 0.7 K/uL (0.0-0.8); MONO % 8.5 % (0.0-10.0); NEUT # 5.8 K/uL (1.8-7.0); NEUT % 70.7 % (50.0-75.0); NRBC % 0.1 % (0.0-2.0); RBC 3.58 Mil/uL (3.80-5.20); WHITE BLOOD COUNT 8.2 K/uL (4.8-10.8)
[2017-12-20 09:12] LABS: ALB/GLOB RATIO 1.1 (1.0-2.1); ALBUMIN 3.3 g/dL (3.5-5.0); CALCIUM 9.3 mg/dl (8.6-10.4)
[2017-12-20] MEDS: Pantoprazole 40 mg EC Tab PO SCH (10:34)
[2017-12-20] MEDS: Magnesium Oxide 400 mg Tab UD PO SCH (10:34)
--- NOTE | 2017-12-20 11:14 | CP.PCM.PN ---
Subjective - Date & Time of Evaluation Date of Evaluation: 12/20/17 Time of Evaluation: 11:11 - Subjective Subjective: PT ALERT, FEELS BETTER, LESS SOB. +COUGH ROS; OTHERWISE NEG Objective - Vital Signs/Intake and Output Vital Signs (last 24 hours): Temp Pulse Resp BP Pulse Ox 97.6 F 96 H 20 131/72 94 L 12/20/17 09:17 12/20/17 10:33 12/20/17 09:17 12/20/17 10:34 12/20/17 09:17 Intake and Output: 12/20/17 12/20/17 06:59 18:59 Intake Total 300 Output Total 700 Balance -400 - Medications Medications: Current Medications Acetaminophen (Tylenol 325mg Tab) 650 mg PO Q6 PRN PRN Reason: Pain, moderate (4-7) Last Admin: 12/20/17 06:10 Dose: 650 mg Albuterol/Ipratropium (Duoneb 3 Mg/0.5 Mg (3 Ml) Ud) 3 ml INH RQ6 [facility] Last Admin: 12/20/17 07:45 Dose: 3 ml Amlodipine Besylate (Norvasc) 5 mg PO DAILY [facility] Last Admin: 12/20/17 10:34 Dose: 5 mg Aspirin (Aspirin Chewable) 81 mg PO DAILY [facility] Last Admin: 12/20/17 10:34 Dose: 81 mg Furosemide (Lasix) 20 mg IVP DAILY [facility] Last Admin: 12/20/17 10:34 Dose: 20 mg Heparin Sodium (Porcine) (Heparin) 5,000 units SC Q8 [facility] Last Admin: 12/20/17 06:05 Dose: 5,000 units Lactulose (Enulose) 20 gm PO DAILY [facility] Last Admin: 12/20/17 10:34 Dose: 20 gm Loratadine (Claritin) 10 mg PO DAILY [facility] Last Admin: 12/20/17 10:35 Dose: 10 mg Magnesium Oxide (Mag-Ox) 400 mg PO DAILY [facility] Last Admin: 12/20/17 10:34 Dose: 400 mg Nitroglycerin (Nitro-Bid 2% Oint) 0.5 ea TOP Q6 [facility] Last Admin: 12/20/17 06:09 Dose: 0.5 ea Pantoprazole Sodium (Protonix Ec Tab) 40 mg PO DAILY [facility] Last Admin: 12/20/17 10:34 Dose: 40 mg Rosuvastatin Calcium (Crestor) 2.5 mg PO HS [facility] Last Admin: 12/19/17 23:18 Dose: 2.5 mg - Labs Labs: 12/20/17 08:40 12/20/17 08:40 PT 11.6 SECONDS (9.7-12.2) 12/15/17 14:42 INR 1.0 12/15/17 14:42 APTT 31 SECONDS (21-34) 12/15/17 14:42 - Constitutional Appears: Non-toxic, No Acute Distress, Chronically Ill - Head Exam Head Exam: ATRAUMATIC, NORMOCEPHALIC - Eye Exam Eye Exam: EOMI, Normal appearance - ENT Exam ENT Exam: Mucous Membranes Moist - Neck Exam Neck Exam: absent: Tenderness - Respiratory Exam Respiratory Exam: Rales. absent: Wheezes Additional comments: BETTER BS BASES - Cardiovascular Exam Cardiovascular Exam: RRR, +S1, +S2 - GI/Abdominal Exam GI & Abdominal Exam: Soft. absent: Tenderness - Rectal Exam Rectal Exam: Deferred - Extremities Exam Extremities Exam: absent: Calf Tenderness, Pedal Edema - Back Exam Back Exam: absent: CVA tenderness (L), CVA tenderness (R) - Neurological Exam Neurological Exam: Alert, Awake, CN II-XII Intact, Oriented x3 - Psychiatric Exam Psychiatric exam: Normal Mood - Skin Skin Exam: absent: Rash Assessment and Plan (1) COPD exacerbation Status: Acute (2) Acute coronary syndrome Status: Acute (3) Hypertension Status: Acute (4) Hyperlipidemia Status: Acute (5) Respiratory failure with hypoxia Status: Acute (6) Chronic congestive heart failure Status: Acute - Assessment and Plan (Free Text) Assessment: RESP STATUS IMPROVING., LESS DYSPNEIC., CONT PULM TOILET., NEB BD., ADVAIR., CXR REVIEWED. MONITOR O2 SAT. DIURESIS TOLERATED. INCREASE OOB. PROG GUARDED. DISCUSSED WITH STAFF AT LENGTH.
--- NOTE | 2017-12-20 17:30 | PN ---
DATE: SUBJECTIVE: Today, the patient is alert and awake. The patient is seen sitting on the chair out of bed. Denies any shortness of breath or chest pain. The patient has some weakness, and the patient has no constipation. PHYSICAL EXAMINATION: VITAL SIGNS: Has blood pressure of 131/72, pulse is 60, respirations 20, temperature is 97.6. NECK: Supple. No JVD. LUNGS: There are some fine rales heard at the bases. HEART: Regular rate and rhythm. Positive murmur. ABDOMEN: Soft and nontender. No palpable mass. EXTREMITIES: There is no edema at this point. LABORATORY DATA: The patient had some blood test done today showed that the WBC 8.2, hemoglobin 11.1, hematocrit 33.8, and platelets 173. Chemistry showed the sodium 141, potassium 4.4, chloride 100, bicarb is 30, BUN is 23, creatinine 1.5, total protein is 6.2, and albumin is 3.3. PLAN: The plan is that we are going to continue the current treatment, but we are going to change the Lasix to p.o. and we will obtain a chest x-ray congestion, so we are going to continue the IV antibiotic therapy. Jeb Hart MD
--- NOTE | 2017-12-20 18:22 | PN ---
DATE: 12/20/2017 SUBJECTIVE: The patient had experienced chest pain yesterday, right-sided, radiating to the back. She is currently chest pain-free. EKG was performed and revealed sinus rhythm with nonspecific T-wave changes and occasional . The patient had PVCs. Chest x-ray yesterday revealed biapical pleural thickening, mild venous congestion, bilateral hilar prominence. One set of troponin was done yesterday and was negative. SMA-7 is within normal limits except for glucose 127, BUN and creatinine 23 and 1.5 respectively. Hemoglobin and hematocrit 11.1 and 33.8. White count and platelet count are within normal limits. ASSESSMENT: 1. Chest pain, rule out myocardial infarction. 2. Rule out pulmonary infarction. 3. Chronic renal insufficiency. 4. Multinodular goiter. 5. Hypertension. RECOMMENDATIONS: Continue with aspirin 81 mg once a day, Crestor 2.5 mg once a day, subcutaneous heparin 5000 units q.8 hours, Lasix 20 mg once a day, Norvasc 5 mg once a day. Awaiting official report of arterial Doppler of the lower extremity. Obtain a ventilation/perfusion scan as well as one set of troponin and one EKG today. Yoni Jorgensen MD
[2017-12-20] MEDS: Rosuvastatin Calcium 2.5 mg Tab PO SCH (22:23)
[2017-12-21] MEDS: Nitroglycerin 2% Ointment Foilpak UD TOP SCH ×4 (00:07→17:50)
--- NOTE | 2017-12-21 08:01 | PN ---
DATE: SUBJECTIVE: The patient is seen and evaluated. The patient is sitting in chair, comfortable. O2 saturation on 2 L nasal cannula. The patient denies chest pain. No shortness of breath at rest. No dizziness. The patient is still weak. No constipation. PHYSICAL EXAMINATION: VITAL SIGNS: The patient has a blood pressure of 107/62, pulse 68, respirations 20, temperature 98.2. NECK: Supple. No JVD. LUNGS: Fine rales at the bases. HEART: Regular rate and rhythm. Positive murmur. ABDOMEN: Soft. Positive bowel sounds. Nontender. No palpable mass. EXTREMITIES: There is no edema now. LABORATORY DATA: Labs done today shows that sodium is 142, potassium 4.6, chloride 101, bicarb is 32, BUN is 19, creatinine 1.3. The patient had a chest x-ray today, and the chest x-ray showed that there is moderate venous congestion and left mid lung atelectasis, small bilateral pleural effusion. PLAN: The plan is that we are going to continue the Lasix and also continue and physical therapy is ordered. Progress note from and Dr. Delacruz is appreciated. Jeb Hart MD
--- NOTE | 2017-12-21 09:14 | CP.PCM.PN ---
Subjective - Date & Time of Evaluation Date of Evaluation: 12/21/17 Time of Evaluation: 09:11 - Subjective Subjective: PT ALERT, FEELS BETTER., LESS SOB., OCC COUGH +BACK PAINS., ROS; OTHERWISE NEG. Objective - Vital Signs/Intake and Output Vital Signs (last 24 hours): Temp Pulse Resp BP Pulse Ox 97.9 F 77 18 130/74 100 12/21/17 08:00 12/21/17 08:11 12/21/17 08:00 12/21/17 08:00 12/21/17 08:00 Intake and Output: 12/21/17 12/21/17 06:59 18:59 Intake Total 310 Output Total 400 Balance -90 - Medications Medications: Current Medications Acetaminophen (Tylenol 325mg Tab) 650 mg PO Q6 PRN PRN Reason: Pain, moderate (4-7) Last Admin: 12/20/17 06:10 Dose: 650 mg Amlodipine Besylate (Norvasc) 5 mg PO DAILY [facility] Last Admin: 12/20/17 10:34 Dose: 5 mg Aspirin (Aspirin Chewable) 81 mg PO DAILY [facility] Last Admin: 12/20/17 10:34 Dose: 81 mg Furosemide (Lasix) 20 mg PO DAILY [facility] Heparin Sodium (Porcine) (Heparin) 5,000 units SC Q8 [facility] Last Admin: 12/21/17 05:22 Dose: 5,000 units Lactulose (Enulose) 20 gm PO DAILY [facility] Last Admin: 12/20/17 10:34 Dose: 20 gm Loratadine (Claritin) 10 mg PO DAILY [facility] Last Admin: 12/20/17 10:35 Dose: 10 mg Magnesium Oxide (Mag-Ox) 400 mg PO DAILY [facility] Last Admin: 12/20/17 10:34 Dose: 400 mg Nitroglycerin (Nitro-Bid 2% Oint) 0.5 ea TOP Q6 [facility] Last Admin: 12/21/17 05:21 Dose: 0.5 ea Pantoprazole Sodium (Protonix Ec Tab) 40 mg PO DAILY [facility] Last Admin: 12/20/17 10:34 Dose: 40 mg Rosuvastatin Calcium (Crestor) 2.5 mg PO HS [facility] Last Admin: 12/20/17 22:23 Dose: 2.5 mg - Labs Labs: 12/20/17 08:40 12/20/17 08:40 PT 11.6 SECONDS (9.7-12.2) 12/15/17 14:42 INR 1.0 12/15/17 14:42 APTT 31 SECONDS (21-34) 12/15/17 14:42 - Constitutional Appears: Non-toxic, No Acute Distress, Chronically Ill - Head Exam Head Exam: ATRAUMATIC, NORMOCEPHALIC - Eye Exam Eye Exam: EOMI, Normal appearance - ENT Exam ENT Exam: Mucous Membranes Moist - Neck Exam Neck Exam: absent: Tenderness, Thyromegaly - Respiratory Exam Respiratory Exam: Decreased Breath Sounds. absent: Accessory Muscle Use, Chest Wall Tenderness, Wheezes Additional comments: BETTER BS BASES - Cardiovascular Exam Cardiovascular Exam: RRR, +S1, +S2 - GI/Abdominal Exam GI & Abdominal Exam: Soft. absent: Tenderness - Rectal Exam Rectal Exam: Deferred - Extremities Exam Extremities Exam: absent: Calf Tenderness, Pedal Edema - Back Exam Back Exam: absent: CVA tenderness (L), CVA tenderness (R) - Neurological Exam Neurological Exam: Alert, Awake, CN II-XII Intact, Oriented x3 - Skin Skin Exam: absent: Rash Assessment and Plan (1) COPD exacerbation Status: Acute (2) Acute coronary syndrome Status: Acute (3) Hypertension Status: Acute (4) Hyperlipidemia Status: Acute (5) Respiratory failure with hypoxia Status: Acute (6) Chronic congestive heart failure Status: Acute - Assessment and Plan (Free Text) Assessment: RESP STATUS IMPROVING., CONT NEB BD., OXYGENATION BETTER, 94% ON ROOM AIR NOW. FOR V/Q SCAN. CXR REVIEWED. DIURESIS TOLERATED. F/U CARD ENZ. PROG POOR. DISCUSSED WITH STAFF AT LENGTH.
--- NOTE | 2017-12-21 10:22 | NM ---
COMPARISON: 12/19/2017 two-view chest 11/28/2017 ventilation-perfusion scan. Summary of findings on the comparison examination: Low probability ventilation perfusion scan TECHNIQUE: 6.0 mCi technetium 99-m Xe-133 Gas. 3.9 mCI technetium 99-m MAA administered intravenously. FINDINGS: VENTILATION COMPONENT: Normal. PERFUSION COMPONENT: Heterogeneous distribution of radionuclide. No geographic, segmental, lobar abnormalities apparent on the present examination. IMPRESSION: Low probability ventilation perfusion scan for pulmonary embolism. No change compared to the prior ventilation-perfusion scan 11/28/2017.
[2017-12-21] MEDS: Pantoprazole 40 mg EC Tab PO SCH (10:35)
[2017-12-21] MEDS: Magnesium Oxide 400 mg Tab UD PO SCH (10:36)
--- NOTE | 2017-12-21 10:44 | VASCLAB ---
PROCEDURE: HISTORY: leg pain, bilaterally, PAD. COMPARISON: None available. TECHNIQUE: Grayscale and duplex Doppler evaluation of the bilateral common femoral, femoral, profunda femoral, popliteal, posterior tibial, anterior tibial and dorsalis pedis arteries was performed. Report prepared by KARLA FowlerT FINDINGS: RIGHT LOWER EXTREMITY: * Common Femoral Artery: Peak Systolic Velocity - 62.3: Doppler Waveform: Biphasic.: Plaque description - Calcific * Profunda Femoral Artery: Peak Systolic Velocity - 45.7: Doppler Waveform: Triphasic.: Plaque description - * Femoral Artery o Proximal Segment: Peak Systolic Velocity - 57.8: Doppler Waveform: Biphasic: Plaque description - Calcific o Middle Segment: Peak Systolic Velocity - 43.0: Doppler Waveform: Biphasic: Plaque description - Calcific o Distal Segment: Peak Systolic Velocity - 45.7: Doppler Waveform: Biphasic: Plaque description - Calcific * Popliteal Artery o Proximal Segment: Peak Systolic Velocity - 42.1: Doppler Waveform: Biphasic: Plaque description - Calcific o Middle Segment: Peak Systolic Velocity - 72.5: Doppler Waveform: Biphasic: Plaque description - o Distal Segment: Peak Systolic Velocity - 66.5: Doppler Waveform: Biphasic: Plaque description - Calcific * Posterior Tibial Artery: Peak Systolic Velocity - 60.8: Doppler Waveform: Biphasic: Plaque description - Calcific * Anterior Tibial Artery: Peak Systolic Velocity - 34.7: Doppler Waveform: Monophasic: Plaque description - * Dorsalis Pedis Artery: Peak Systolic Velocity - : Doppler Waveform: Biphasic: Plaque description - Calcific LEFT LOWER EXTREMITY: * Common Femoral Artery: Peak Systolic Velocity - 75.3: Doppler Waveform: Biphasic: Plaque description - Calcific * Profunda Femoral Artery: Peak Systolic Velocity - 47.8: Doppler Waveform: Biphasic: Plaque description - Calcific * Femoral Artery o Proximal Segment: Peak Systolic Velocity - 55.0: Doppler Waveform: Biphasic: Plaque description - Calcific o Middle Segment: Peak Systolic Velocity - 66.5: Doppler Waveform: Calcific: Plaque description - Calcific o Distal Segment: Peak Systolic Velocity - 44.9: Doppler Waveform: Biphasic: Plaque description - Calcific * Popliteal Artery o Proximal Segment: Peak Systolic Velocity - 45.5: Doppler Waveform: Biphasic: Plaque description - Calcific o Middle Segment: Peak Systolic Velocity - 45.2: Doppler Waveform: Biphasic: Plaque description - Calcific o Distal Segment: Peak Systolic Velocity - 42.1: Doppler Waveform: Biphasic: Plaque description - Calcific * Posterior Tibial Artery: Peak Systolic Velocity - 49.3: Doppler Waveform: Biphasic: Plaque description - Calcific * Anterior Tibial Artery: Peak Systolic Velocity - 73.7: Doppler Waveform: Monophasic: Plaque description - Calcific * Dorsalis Pedis Artery: Peak Systolic Velocity - : Doppler Waveform: Monophasic: Plaque description - OTHER FINDINGS: None. IMPRESSION: Right: There was generalized calcified plaque formation in most of the arteries with mostly biphasic arterial flow and NO evidence of hemodynamically significant arterial insufficiency in the right lower extremity. Left: There was generalized calcified plaque formation in most of the arteries with mostly biphasic arterial flow and NO evidence of hemodynamically significant arterial insufficiency in the left lower extremity.
--- NOTE | 2017-12-21 16:45 | PCM.HF ---
Heart Failure Core Measure - Heart Failure Ejection Fraction: 40 % or Greater YOLANDA Inhibitor Prescribed: No Contraindication/Reason for not providing: ef>45/allergic to yolanda Beta-Yasmeen Prescribed: None Contraindication/Reason for not providing: chronic cough/ hx of bradycardia with betablocker Angiotensin II Receptor Yasmeen Prescribed: No Contraindication/Reason for not providing: ef>45 AnticoagulationTherapy for Atrial Fibrillation/Atrialflutter: No Contraindication/Reason for not providing: no hx of a fib Aldosterone Antagonist Prescribed: No Contraindication/Reason for not providing: ef>45 Hydralazine Nitrate Prescribed: No Contraindication/Reason for not providing: ef>45 Implantable Cardioverter Defibrillator Therapy: No Contraindication/Reason for not providing: ef>45 Cardiac Resynchronization Therapy Prescribed: No Contraindication/Reason for not providing: ef>45/NSR - Follow up Will be discharged to: Home Follow Up Date (must be within 7 days from discharge): 12/25/17 Follow Up Time: 09:00
--- NOTE | 2017-12-21 16:46 | CP.PCM.PN ---
Subjective - Date & Time of Evaluation Date of Evaluation: 12/21/17 Time of Evaluation: 11:40 - Subjective Subjective: Patient seen today with Dr. Hart spo2 RA resting 95-96 and ambulation 94% vq scan - negative Pt refused repeat lab work today cr- stable seen by Dr. Rob today, cleared for discharge home from cardiology standpoint Objective - Vital Signs/Intake and Output Vital Signs (last 24 hours): Temp Pulse Resp BP Pulse Ox 97.9 F 72 18 107/67 97 12/21/17 08:00 12/21/17 12:04 12/21/17 08:00 12/21/17 12:04 12/21/17 14:07 Intake and Output: 12/21/17 12/21/17 06:59 18:59 Intake Total 310 500 Output Total 400 Balance -90 500 - Medications Medications: Current Medications Acetaminophen (Tylenol 325mg Tab) 650 mg PO Q6 PRN PRN Reason: Pain, moderate (4-7) Last Admin: 12/20/17 06:10 Dose: 650 mg Amlodipine Besylate (Norvasc) 5 mg PO DAILY [facility] Last Admin: 12/21/17 10:36 Dose: 5 mg Aspirin (Aspirin Chewable) 81 mg PO DAILY [facility] Last Admin: 12/21/17 10:36 Dose: 81 mg Furosemide (Lasix) 20 mg PO DAILY [facility] Last Admin: 12/21/17 10:36 Dose: 20 mg Lactulose (Enulose) 20 gm PO DAILY [facility] Last Admin: 12/21/17 10:39 Dose: Not Given Loratadine (Claritin) 10 mg PO DAILY [facility] Last Admin: 12/21/17 10:35 Dose: 10 mg Magnesium Oxide (Mag-Ox) 400 mg PO DAILY [facility] Last Admin: 12/21/17 10:36 Dose: 400 mg Nitroglycerin (Nitro-Bid 2% Oint) 0.5 ea TOP Q6 [facility] Last Admin: 12/21/17 12:37 Dose: 0.5 ea Pantoprazole Sodium (Protonix Ec Tab) 40 mg PO DAILY [facility] Last Admin: 12/21/17 10:35 Dose: 40 mg Rosuvastatin Calcium (Crestor) 2.5 mg PO HS [facility] Last Admin: 12/20/17 22:23 Dose: 2.5 mg - Labs Labs: 12/20/17 08:40 12/20/17 08:40 PT 11.6 SECONDS (9.7-12.2) 12/15/17 14:42 INR 1.0 12/15/17 14:42 APTT 31 SECONDS (21-34) 12/15/17 14:42 - Constitutional Appears: Well, No Acute Distress - Respiratory Exam Respiratory Exam: Clear to Ausculation Bilateral, NORMAL BREATHING PATTERN - Cardiovascular Exam Cardiovascular Exam: REGULAR RHYTHM, +S1, +S2 - Neurological Exam Neurological Exam: Alert, Awake, Oriented x3 Assessment and Plan - Assessment and Plan (Free Text) Assessment: a/p 87 yr old female with pmhx of HTN, chf, admitted exacerbations of congestive heart failure, NSTEMI troponin - mildly elevated and Dr. Jorgensen on cardiology consult , recommends medical management spo2 room air- 95 and ambulation 94% seen by Dr. Jorgensen cleared fro discharge home today from cardiology standpoint seen by Dr. Hart today, stable for discharge home today and f/u with Dr. Hart office in 1 week
[2017-12-21 16:59] VITALS: BP 123/82; PULSE 73; RESP 20; TEMP 98.2; O2SAT 98
--- NOTE | 2017-12-21 21:28 | PN ---
DATE: SUBJECTIVE: The patient denies any chest pain, leg pain, or shortness of breath. PHYSICAL EXAMINATION: VITAL SIGNS: Blood pressure 123/82, heart rate 73, temperature 98.2, respirations 20. HEENT: Normocephalic. CHEST: Clear. HEART: S1 and S2 regular. EXTREMITIES: No edema. A ventilation/perfusion scan for PE. She had a Doppler of lower extremity. No evidence of hemodynamically significant arterial insufficiency in either lower extremity. ASSESSMENT: 1. Status post non-ST elevation myocardial infarction. 2. Chronic renal insufficiency. 3. Multinodular goiter. RECOMMENDATIONS: Case was discussed with the patient's family and with OFFSET PRESS ASSISTANT. The patient can be discharged on conservative medical therapy including aspirin, Crestor, oral Lasix, Norvasc, and Tylenol. Start Coreg at 3.125 mg twice a day. Yoni Jorgensen MD
--- NOTE | 2017-12-22 02:08 | PN ---
DATE: SUBJECTIVE: The patient was seen earlier this morning, and we found the patient is alert and awake, denies any shortness of breath. No chest pain. No palpitations. Even the patient was complaining of right-sided chest pain yesterday, but today the patient is chest pain free. The patient denied any palpitation and also the patient admits having good bowel movement. PHYSICAL EXAMINATION: VITAL SIGNS: Has blood pressure of 107/67, pulse is 72, respirations 20, and temperature is 98.2. NECK: Supple. No JVD. LUNGS: Clear. HEART: Regular rate and rhythm with positive murmur. ABDOMEN: Soft. Nontender. No palpable mass. EXTREMITIES: There is no edema and also positive pedal pulse. LABORATORY DATA: The patient blood work has WBC of 8.2, hemoglobin 11.1, hematocrit 33.8, and platelets 173. Chemistry done yesterday showed sodium 141, potassium 4.4, chloride 100, BUN is 23, creatinine 1.5, glucose 127. The patient has repeat blood work today. The patient also has V/Q scan done today, but it showed . ASSESSMENT AND PLAN: At this point, case was reviewed and discussed with Kanwal Calix, the nurse practitioner, and we will consider discharging this patient to home today. Jeb Hart MD
--- NOTE | 2017-12-23 06:25 | DS ---
HOSPITAL COURSE: This patient is an 87-year-old female with history of CHF and hypertension. The patient was brought to the emergency room because the patient was complaining of shortness of breath. As such, the patient was seen in my office and admitted having shortness of breath and the patient was advised to go to the emergency room by EMS, but the patient has refused. The patient went to the emergency room at [facility] ([facility] in her son's private car. In the emergency room, the patient was found to be short of breath and was put on BiPAP and received medications including Lasix. ALLERGIES: THE PATIENT IS ALLERGIC TO YOLANDA INHIBITORS. HOSPITAL COURSE: The patient had a chest x-ray done. The chest x-ray was positive for pulmonary congestion and the patient was admitted to telemetry with the diagnosis of CHF. The patient had a consult with Dr. Jorgensen, the ice plant operator. The patient's troponin was somewhat elevated, but, however, progressively the troponin was back to normal. Troponin yesterday was 0.0120 and the patient also had some medications including Lasix and nebulizer treatment and oxygen therapy. The patient has started improving. The chest x-ray has shown some good improvement and today the patient had no more shortness of breath, the lungs were clear, and the heart was regular, but has a murmur. We discharged the patient home on medications, that is Lasix 20 mg and other medications. The patient will come to see me in the office within one week. Jeb Hart MD
== END 2017-12-21 18:48 | disposition home or self-care (01) | DRG 280 ==
LOC: C.ER 13:09 → C.9E 15:39 → C.6T 16:39
PROVIDERS: ADMIT Specialist; ATTEND Specialist
PROC: 5A09457 Assistance with Respiratory Ventilation, 24-96 Consecutive Hours, Continuous Positive Airway Pressure (ICD-10-PCS; principal; 2017-12-15)
DX: I21.4 Non-ST elevation (NSTEMI) myocardial infarction (principal); J18.9 Pneumonia, unspecified organism; J96.01 Acute respiratory failure with hypoxia; J44.0 Chronic obstructive pulmonary disease with (acute) lower respiratory infection; I13.0 Hypertensive heart and chronic kidney disease with heart failure and stage 1 through stage 4 chronic kidney disease, or unspecified chronic kidney disease; J44.1 Chronic obstructive pulmonary disease with (acute) exacerbation; J98.11 Atelectasis; E04.2 Nontoxic multinodular goiter; I27.20 Pulmonary hypertension, unspecified; I50.9 Heart failure, unspecified; N18.9 Chronic kidney disease, unspecified; Z87.891 Personal history of nicotine dependence; E78.00 Pure hypercholesterolemia, unspecified

== ENCOUNTER 2018-03-23 16:41 | Observation (INO) | payer MEDICARE, MEDICAID ==
[2018-03-23 16:41] VITALS: BMI 27.3
[2018-03-23 17:03] LABS: BASO # 0.1 K/uL (0.0-0.2); BASO % 0.9 % (0.0-2.0); EOS # 0.4 K/uL (0.0-0.7); EOS % 6.6 % (0.0-4.0); HEMOGLOBIN 13.2 g/dL (11.0-16.0); LYMPH # 1.9 K/uL (1.0-4.3); MEAN CORPUSCULAR HEMOGLOBIN 30.7 pg (27.0-31.0); MEAN PLATELET VOLUME 9.4 fL (7.2-11.7); MONO # 0.6 K/uL (0.0-0.8); MONO % 8.3 % (0.0-10.0); NEUT # 3.8 K/uL (1.8-7.0); NEUT % 56.2 % (50.0-75.0); NRBC % 0.1 % (0.0-2.0); RBC 4.28 Mil/uL (3.80-5.20); RED CELL DISTRIBUTION WIDTH 14.3 % (11.5-14.5); WHITE BLOOD COUNT 6.8 K/uL (4.8-10.8)
--- NOTE | 2018-03-23 17:10 | RAD ---
Date of service: 03/23/2018 HISTORY: sob COMPARISON: Chest radiograph dated 12/19/2017. FINDINGS: LUNGS: Stable chronic prominence of the bilateral interstitial markings. No focal consolidation. PLEURA: No significant pleural effusion identified, no pneumothorax apparent. CARDIOVASCULAR: Atherosclerotic aortic calcifications. Cardiomediastinal silhouette stably enlarged. OSSEOUS STRUCTURES: Old right-sided rib fracture. Unchanged. VISUALIZED UPPER ABDOMEN: Normal. OTHER FINDINGS: None. IMPRESSION: Stable chronic prominence of the bilateral interstitial markings. No focal consolidation or pleural effusion.
[2018-03-23 17:11] LABS: ALB/GLOB RATIO 1.6 (1.0-2.1); ALBUMIN 4.3 g/dL (3.5-5.0); ALT/SGPT 39 U/L (9-52); AST/SGOT 37 U/L (14-36); BLOOD UREA NITROGEN 31 mg/dL (7-17); CALCIUM 9.3 mg/dl (8.6-10.4); GFR AFRICAN-AMERICAN 40; GFR NON-AFRICAN AMERICAN 33
[2018-03-23 17:16] LABS: PROTHROMBIN TIME 11.4 SECONDS (9.7-12.2)
[2018-03-23 17:23] LABS: B-TYPE NATRIURETIC PEPTIDE 1540 pg/mL (0-900)
--- NOTE | 2018-03-23 17:41 | C.PDOC ---
History Of Present Illness 87yo female, referred to the emergency department by Dr Hart, for evaluation of shortness of breath, and increased leg edema. Patient denies nausea/vomiting, fever, chills, chest pain or any other associated symptoms. No other complaints at this time. Time Seen by Provider: 03/23/18 17:29 Chief Complaint (Nursing): Palpitations History Per: Patient History/Exam Limitations: no limitations Current Symptoms Are (Timing): Still Present Past Medical History Reviewed: Historical Data, Nursing Documentation, Vital Signs Vital Signs: Last Vital Signs Temp 98.0 F 03/23/18 16:54 Pulse 70 03/23/18 16:54 Resp 20 03/23/18 16:54 BP 110/58 L 03/23/18 18:25 Pulse Ox 95 03/23/18 18:34 - Medical History PMH: COPD, Fractures (left wrist 3 weeks ago), HTN, Hypercholesterolemia, Hyperlipidemia Denies: Chronic Kidney Disease Surgical History: Appendectomy - [facility] Procedures APPLICATION OF SPLINT (06/07/15) ASSISTANCE WITH RESPIRATORY VENTILATION, 24-96 HRS, CPAP (12/15/17) DRESSING OF WOUND NEC (04/23/13) TETANUS TOXOID ADMINIST (04/23/13) Family History: States: No Known Family Hx - Social History Hx Tobacco Use: No Hx Alcohol Use: No Hx Substance Use: No - Immunization History Hx Tetanus Toxoid Vaccination: Yes Hx Influenza Vaccination: Yes Hx Pneumococcal Vaccination: Yes Review Of Systems Constitutional: Negative for: Fever, Chills Cardiovascular: Negative for: Chest Pain, Palpitations Respiratory: Positive for: Shortness of Breath (+edema) Gastrointestinal: Negative for: Nausea, Vomiting Neurological: Negative for: Weakness, Numbness, Headache, Dizziness Physical Exam - Physical Exam Appears: Non-toxic, No Acute Distress Skin: Normal Color, Warm, Dry, No Rash Head: Atraumatic, Normacephalic Eye(s): bilateral: Normal Inspection Nose: Normal Oral Mucosa: Moist Lips: Normal Appearing Neck: Normal ROM Chest: Symmetrical Cardiovascular: Rhythm Regular, Murmur (systolic) Respiratory: No Decreased Breath Sounds, No Accessory Muscle Use, Rales (B/L) Gastrointestinal/Abdominal: Soft, No Tenderness Extremity: Pedal Edema (1/4, pitting B/L LE), No Deformity Neurological/Psych: Oriented x3 ED Course And Treatment - Laboratory Results Result Diagrams: 03/23/18 16:56 03/23/18 16:56 Lab Interpretation: Normal (trop neg, bnp 1500) ECG: Interpreted By Me ECG Rhythm: Sinus Rhythm ECG Interpretation: Normal Rate From EC O2 Sat by Pulse Oximetry: 95 - Radiology CXR: Interpreted by Me, Read By Radiologist CXR Interpretation: Yes: No Acute Disease Reevaluation Time: 17:40 Reassessment Condition: Improved - Physician Consult Information Outcome Of Conversation: 1730: d/w Dr. Hart- ok to admit. OK with stat dose lasix IV Disposition Doctor Will See Patient In The: Hospital Counseled Patient/Family Regarding: Studies Performed, Diagnosis - Disposition Disposition: HOSPITALIZED Disposition Time: 17:40 Condition: GOOD - Clinical Impression Clinical Impression: Chronic congestive heart failure, Congestive heart failure - Scribe Statement The provider has reviewed the documentation as recorded by the Scribe (Mirtha Lima) All medical record entries made by the Scribe were at my direction and personally dictated by me. I have reviewed the chart and agree that the record accurately reflects my personal performance of the history, physical exam, medical decision making, and the department course for this patient. I have also personally directed, reviewed, and agree with the discharge instructions and disposition.
[2018-03-23 20:34] LABS: CK-MB 0.47 ng/mL (0.0-3.38)
[2018-03-23 22:59] VITALS: RESP 20
[2018-03-24 05:07] LABS: WHITE BLOOD COUNT 5.9 K/uL (4.8-10.8)
[2018-03-24 05:16] LABS: HEMOGLOBIN 12.4 g/dL (11.0-16.0); MEAN CELL VOLUME 92.9 fL (81.0-99.0); MEAN CORPUSCULAR HEMOGLOBIN 31.2 pg (27.0-31.0); MEAN CORPUSCULAR HGB CONC 33.6 g/dL (33.0-37.0); RBC 3.98 Mil/uL (3.80-5.20); RED CELL DISTRIBUTION WIDTH 14.7 % (11.5-14.5)
[2018-03-24 05:38] LABS: LDL CHOLESTEROL 55 mg/dL (0-129)
[2018-03-24 05:39] LABS: ALB/GLOB RATIO 1.6 (1.0-2.1); ALBUMIN 3.5 g/dL (3.5-5.0); ALT/SGPT 36 U/L (9-52); AST/SGOT 25 U/L (14-36); BLOOD UREA NITROGEN 32 mg/dL (7-17); CALCIUM 8.8 mg/dl (8.6-10.4); CK-MB 0.34 ng/mL (0.0-3.38); GFR AFRICAN-AMERICAN 37; GFR NON-AFRICAN AMERICAN 30; HDL CHOLESTEROL 47 mg/dL (30-70)
[2018-03-24] MEDS: Nitroglycerin 2% Ointment Foilpak UD TOP SCH ×4 (06:49→17:51)
[2018-03-24] MEDS: Pantoprazole 40 mg EC Tab PO SCH (10:35)
[2018-03-24 13:45] LABS: CK-MB 0.44 ng/mL (0.0-3.38)
--- NOTE | 2018-03-24 21:50 | CP.PCM.CON ---
History of Present Illness - History of Present Illness History of Present Illness: EP consult Re: atrial fibrillation Chart/old records/imaging reviewed interrogated and examined Admitted with dyspnea and edema Post admission was noted to be in atrial fibrillation Has occasional palpitations and dizziness and some prior admissions for dizziness and syncope No history of atrial fibrillation arrhythmia thyroid disease, blood thinners stroke Past medical Systemic hypertension Hyperlipidemia "congestive heart failure" COPD Past surgery Appendectomy; Fracture wrist Medications: reviewed No history of smoking alcohol or drug abuse Exam: No distress No goiter Elevated venous pressures Clear lungs ?PMI Soft heart sounds; apical hollow systolic murmur 3/6 radiating to the base Soft abdomen Edema: 1+ bilateral pitting symmetrical EKG: atrial fibrillation/flutter; controlled ventricular rate Telemetry: bradycardia; blocked APC Echo: ; reviewed: normal LV ejection fraction size and thickness; diastolic dysfunction; PA pressures ~50mmHg Labs: noted CXR: left base was not clearly visualized; normal heart size Past Patient History - Infectious Disease Hx of Infectious Diseases: None - Past Medical History & Family History Past Medical History?: Yes - Past Social History Smoking Status: Former Smoker - CARDIAC Hx Hypercholesterolemia: Yes Hx Hypertension: Yes - PULMONARY Hx Chronic Obstructive Pulmonary Disease (COPD): Yes - NEUROLOGICAL Hx Neurological Disorder: No - HEENT Hx HEENT Problems: No - RENAL Hx Chronic Kidney Disease: No - ENDOCRINE/METABOLIC Hx Endocrine Disorders: No - HEMATOLOGICAL/ONCOLOGICAL Hx Blood Disorders: No - INTEGUMENTARY Hx Dermatological Problems: No - MUSCULOSKELETAL/RHEUMATOLOGICAL Hx Fractures: Yes (left wrist 3 weeks ago) - GASTROINTESTINAL Hx Gastrointestinal Disorders: No - GENITOURINARY/GYNECOLOGICAL Hx Genitourinary Disorders: No - PSYCHIATRIC Hx Substance Use: No - SURGICAL HISTORY Hx Appendectomy: Yes - ANESTHESIA Hx Anesthesia: No Hx Anesthesia Reactions: No Meds Allergies/Adverse Reactions: Allergies Allergy/AdvReac Type Severity Reaction Status Date / Time meclizine Allergy Verified 11/27/17 13:36 lisinopril AdvReac Severe ANGIOEDEMA Verified 11/27/17 13:36 - Medications Medications: Current Medications Amlodipine Besylate (Norvasc) 5 mg PO DAILY [facility] Last Admin: 03/24/18 10:35 Dose: 5 mg Apixaban (Eliquis) 2.5 mg PO BID [facility] Aspirin (Ecotrin) 81 mg PO DAILY [facility] Last Admin: 03/24/18 10:35 Dose: 81 mg Furosemide (Lasix) 20 mg IVP Q12H [facility] Last Admin: 03/24/18 17:46 Dose: 20 mg Heparin Sodium (Porcine) (Heparin) 5,000 units SC Q8 [facility] Stop: 03/24/18 22:00 Last Admin: 03/24/18 13:41 Dose: 5,000 units Ibuprofen (Motrin Tab) 600 mg PO BID [facility] Last Admin: 03/24/18 17:47 Dose: 600 mg Loratadine (Claritin) 10 mg PO DAILY [facility] Last Admin: 03/24/18 10:35 Dose: 10 mg Montelukast Sodium (Singulair) 10 mg PO HS [facility] Last Admin: 03/23/18 23:01 Dose: 10 mg Nitroglycerin (Nitro-Bid 2% Oint) 0.5 ea TOP Q6H [facility] Last Admin: 03/24/18 17:51 Dose: 0.5 ea Pantoprazole Sodium (Protonix Ec Tab) 40 mg PO DAILY [facility] Last Admin: 03/24/18 10:35 Dose: 40 mg Polyethylene Glycol (Miralax) 17 gm PO DAILY [facility] Rosuvastatin Calcium (Crestor) 2.5 mg PO HS [facility] Vitamin B Complex/Vit C/Folic Acid (Nephro-Osvaldo) 1 tab PO 0800 [facility] Results - Vital Signs Recent Vital Signs: Last Vital Signs Temp 97.6 F 03/24/18 16:25 Pulse 76 03/24/18 16:25 Resp 20 03/24/18 16:25 BP 110/73 03/24/18 17:46 Pulse Ox 97 03/24/18 16:25 - Labs Result Diagrams: 03/24/18 05:03 03/24/18 05:03 Labs: Laboratory Results - last 24 hr 03/24/18 03/24/18 03/24/18 05:03 05:03 13:15 WBC 5.9 RBC 3.98 Hgb 12.4 Hct 37.0 MCV 92.9 MCH 31.2 H MCHC 33.6 RDW 14.7 H Plt Count 122 L MPV 10.0 Sodium 143 Potassium 3.9 Chloride 106 Carbon Dioxide 27 Anion Gap 14 BUN 32 H Creatinine 1.6 H Est GFR ( Amer) 37 Est GFR (Non-Af Amer) 30 Random Glucose 94 Calcium 8.8 Total Bilirubin 0.7 AST 25 ALT 36 Alkaline Phosphatase 73 Total Creatine Kinase 37 40 CK-MB (Mass) 0.34 0.44 Troponin I < 0.0120 < 0.0120 Total Protein 5.6 L Albumin 3.5 Globulin 2.1 L Albumin/Globulin Ratio 1.6 Triglycerides 76 D Cholesterol 130 LDL Cholesterol Direct 55 HDL Cholesterol 47 TSH 3rd Generation 2.53 Assessment & Plan - Assessment and Plan (Free Text) Assessment: Ms. Araya has seemingly new onset atrial fibrillation; duration and etiological factor(s) are unclear; ? 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'; in absence of definitive symptoms discounting the previous history of syncope and dizziness, she may not be a candidate for a pacemaker, unless there is a clear rhythm-symptom correlation documented There is no imperative for a rhythm strategy at this point, unless her mild LV decompensation correlates with the onset of atrial fibrillation; assuming the latter cardioversion and antiarrhythmics would be relatively contraindicated and the risk of ablation in a 87 year old would outweighs the accrued anticipated benefit Plan: Thyroid function Avoid AV ryan blockers Continue with anticoagulation Advance directives versus consideration for an EPS/pacemaker if symptoms are felt to be significant
[2018-03-24] MEDS: Rosuvastatin Calcium 2.5 mg Tab PO SCH (22:39)
[2018-03-25] MEDS: Nitroglycerin 2% Ointment Foilpak UD TOP SCH ×3 (00:44→13:31)
--- NOTE | 2018-03-25 01:32 | CON ---
DATE: 03/24/2018 CARDIOLOGY CONSULTATION REASON FOR CONSULTATION: Paroxysmal atrial fibrillation and symptomatic bradycardia. History was obtained from the patient's daughter at the bedside. HISTORY OF PRESENT ILLNESS: The patient is an 87-year-old female who was referred by the emergency room because of shortness of breath and leg swelling. Apparently, the patient was given prescription for cough, and the patient took excessive amount of and started to feel dizzy. Upon arriving to the emergency room, first EKG revealed atrial fibrillation with a controlled heart rate, subsequently converted to sinus rhythm; however, telemetry overnight, and current EKG reveals sinus bradycardia, and the lowest hear rate at one point was 39 beats per minute. The patient does report palpitation and dizziness. The patient denies any fall. SOCIAL HISTORY: Nonsmoker, nondrinker. She lives with one of her sons. REVIEW OF SYSTEMS: The patient complains of back pain. She denies any retrosternal chest pain. No reported syncopal episode or seizure activity. MEDICATIONS: Claritin 10 mg once a day, Crestor 2.5 mg once a day, aspirin 81 mg once a day, heparin 5000 units subcutaneous every 8 hours, Lasix 20 mg intravenously twice a day, ibuprofen 600 mg twice a day, Protonix 40 mg once a day, Norvasc 5 mg once a day, Singulair 10 mg at bedtime. PHYSICAL EXAMINATION: GENERAL: The patient is an elderly female who does not appear to be in acute distress. VITAL SIGNS: Blood pressure 99/54, heart rate 43, temperature 97.5, respirations 20. HEENT: Normocephalic. CHEST: Clear. HEART: S1, S2 regular. ABDOMEN: Soft. EXTREMITIES: 1+ pitting edema. LABORATORY DATA: INR, PT and PTT are within normal limit. Today's SMA-7: Sodium 143, potassium 3.9, chloride 106, CO2 of 27, glucose 94, BUN 32, creatinine 1.6. Three sets of troponins are negative. TSH levels are within normal limits. Lipid profile is within normal limit. Hemoglobin, hematocrit, and white count are within normal limit. Today's platelet count 122,000. IMAGING: Admitting EKG revealed atrial fibrillation with a rate of 91, PVCs versus aberrancy, prolonged QT interval. Subsequent EKG revealed sinus rhythm. ASSESSMENT: 1. Symptomatic bradycardia. 2. Paroxysmal atrial fibrillation. 3. Chronic renal insufficiency. 4. Multinodular goiter. 5. History of non-ST elevation myocardial infarction in December of this year. 6. Moderate to severe pulmonary hypertension. The estimated right ventricular systolic blood pressure on the most recent echocardiogram in November of this year was 68 mmHg. RECOMMENDATIONS: Continue Crestor 2.5 mg once a day, aspirin 81 mg once a day, Lasix 20 mg intravenously twice a day, Norvasc 5 mg once a day, and discontinue subcutaneous Lovenox and start Eliquis 5 mg orally daily. EP consult from Dr. Oakley, the reel assembler, has been requested. Yoni Jorgensen MD
[2018-03-25 07:37] LABS: CALCIUM 9.2 mg/dl (8.6-10.4)
[2018-03-25] MEDS: Multivitamin Vitamin B Complex (Nephro-Vite) Tab PO SCH ×2 (08:38→10:35)
[2018-03-25] MEDS: POLYETHYLENE GLYCOL 3350 17 GM/Dose PACKET PO SCH (10:36)
[2018-03-25] MEDS: Pantoprazole 40 mg EC Tab PO SCH (10:45)
--- NOTE | 2018-03-25 12:18 | CARD ---
APPROVED REPORT Date of service: 03/23/2018 EKG Measurement Heart [id number] <Conclusion> Atrial fibrillation with premature ventricular or aberrantly conducted complexes Nonspecific T wave abnormality Abnormal ECG
--- NOTE | 2018-03-25 12:21 | CARD ---
APPROVED REPORT Date of service: 03/23/2018 EKG Measurement Heart [id number] <Conclusion> Sinus rhythm with premature atrial complexes with aberrant conduction Possible Left atrial enlargement Borderline ECG
--- NOTE | 2018-03-25 12:34 | CARD ---
APPROVED REPORT Date of service: 03/25/2018 EXAM: Two-dimensional and M-mode echocardiogram with Doppler and color Doppler. INDICATION Dizziness and Vertigo Dyspnea Congestive Heart Failure COPD PNEUMONIA RISK FACTORS Hypertension 2D DIMENSIONS IVSd1.0 (0.7-1.1cm)Aortic Root (2D)2.3 (2.0-3.7cm) LVDd5.7 (3.9-5.9cm)PWd0.8 (0.7-1.1cm) LVDs3.4 (2.5-4.0cm)FS (%) 40.5 % LVEF (%)70.6 (>50%) M-Mode DIMENSIONS RVDd1.56 (2.1-3.2cm)Left Atrium (MM)4.42 (2.5-4.0cm) IVSd1.17 (0.7-1.1cm)Aortic Root2.67 (2.2-3.7cm) LVDd5.27 (4.0-5.6cm)Aortic Cusp Exc.1.67 (1.5-2.0cm) PWd0.91 (0.7-1.1cm)FS (%) 38 % LVDs3.29 (2.0-3.8cm)LVEF (%)67 (>50%) Aortic Valve AI P 1/2 [id number] Mitral Valve MV E Vjjxyrkw676.0cm/sE/A ratio0.0 TDI E/Lateral E'0.0E/Medial E'0.0 Tricuspid Valve TR Peak [id number]/sTR Peak [id number] LEFT VENTRICLE The left ventricle is normal size. There is normal left ventricular wall thickness. The left ventricular function is normal. The left ventricular ejection fraction is within the normal range. There is normal LV segmental wall motion. Tissue Doppler imaging reveals mild left ventricular diastolic dysfunction. No left ventricle thrombus noted on this study. There is no ventricular septal defect visualized. There is no left ventricular aneurysm. There is no mass noted in the left ventricle. RIGHT VENTRICLE The right ventricle is normal size. There is normal right ventricular wall thickness. The right ventricular systolic function is normal. ATRIA The left atrium is mildly dilated. The right atrium size is normal. The interatrial septum is intact with no evidence for an atrial septal defect. AORTIC VALVE The aortic valve is normal in structure. No aortic regurgitation is present. There is no aortic valvular stenosis. There is no aortic valvular vegetation. MITRAL VALVE The mitral valve is normal in structure. There is no mitral valve stenosis. Mitral regurgitation is mild. TRICUSPID VALVE The tricuspid valve is normal in structure. There is no tricuspid valve regurgitation noted. There is moderate pulmonary hypertension. PULMONIC VALVE The pulmonary valve is normal in structure. There is no pulmonic valvular regurgitation. GREAT VESSELS The aortic root is normal in size. The ascending aorta is normal in size. The pulmonary artery is normal. The IVC is normal in size and collapses >50% with inspiration. PERICARDIAL EFFUSION There is no pericardial effusion. <Conclusion> Tissue Doppler imaging reveals mild left ventricular diastolic dysfunction. The left atrium is mildly dilated. Mitral regurgitation is mild. There is no tricuspid valve regurgitation noted. There is moderate pulmonary hypertension. LVEF IS 70%.
--- NOTE | 2018-03-25 21:29 | PN ---
DATE: 03/25/2016 SUBJECTIVE: The patient is still complaining of dizziness but denies any syncope. The patient was evaluated by Dr. Oakley, the desktop support technician yesterday, and according to his assessment, the patient seemingly has new onset atrial fibrillation, duration and etiology factor are unclear. 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 In absence of definitive symptom, discounting the previous history of syncope and dizziness, she may not be a candidate for a pacemaker, unless there is a clear reason for symptoms correlated, documented. The plan is to do thyroid function, avoid AV ryan blockers, and continue with anticoagulation. PHYSICAL EXAMINATION: VITAL SIGNS: Blood pressure 123/72, heart rate 64, temperature 97.7, respirations 20. HEENT: Normocephalic. CHEST: Clear. HEART: S1 and S2 regular. EXTREMITIES: Trace leg edema. LABORATORY DATA: Today's SMA-7, sodium 143, potassium 4.3, chloride 104, CO2 31, glucose 101, BUN 29, creatinine 1.3. TSH level is within normal limits. ASSESSMENT: 1. Paroxysmal atrial fibrillation. 2. Periods of sinus bradycardia, which are symptomatic. 3. Heterogeneous goiter. 4. Moderate pulmonary hypertension. 5. Left ventricular diastolic dysfunction. RECOMMENDATIONS: Continue current Crestor at 2.5 mg once a day, aspirin 81 mg once a day, Eliquis 2.5 mg once a day, Lasix 20 mg intravenously twice a day, ibuprofen 600 mg twice a day, Norvasc 5 mg once a day, Singulair 10 mg once a day. Continue current telemetry monitoring. The most recent echocardiograph study performed yesterday revealed normal ejection fraction with mild mitral insufficiency and moderate pulmonary hypertension. Case will be further discussed with Dr. Jeb Hart. Yoni Jorgensen MD
[2018-03-25] MEDS: Rosuvastatin Calcium 2.5 mg Tab PO SCH (21:34)
--- NOTE | 2018-03-26 00:03 | PN ---
DATE: 03/25/2018 SUBJECTIVE: Today, the patient is more alert and awake. Denies any shortness of breath. No chest pain. The patient has been having some palpitation at time. PHYSICAL EXAMINATION: VITAL SIGNS: The patient has blood pressure of 136/77, pulse is 71, respirations 20, temperature is 97.4. The recent heart rate was 58. NECK: Supple. No JVD. LUNGS: Clear. HEART: Irregular rhythm and positive murmur. ABDOMEN: Soft and nontender. No palpable mass. EXTREMITIES: There is no edema. Mild tenderness to the right knee. LABORATORY DATA: Labs done show that the WBC is 5.9, hemoglobin 12.4, hematocrit 37, and platelets 122. Chemistry showed that sodium 143, potassium 4.3, chloride 31, BUN 39, creatinine 1.3, and glucose is 74. Calcium is 9.2. ASSESSMENT AND PLAN: We are going to increase the amlodipine to 10 mg and also the case was discussed with Dr. Oakley, the heavy forger, to consider ____ due to the sick sinus syndrome. The patient is having in the past history of syncope and bradycardia. At this point now, has episode of tachyarrhythmia followed by bradycardia. So, the case was reviewed and discussed with Kanwal Calix, the nurse practitioner. Jeb Hart MD
--- NOTE | 2018-03-26 06:23 | HP ---
HISTORY OF PRESENT ILLNESS: The patient is an 87-year-old female with history of hypertension and CHF. The patient came to my office complaining of generalized weakness and some tiredness. The patient has EKG done in the office. I saw her in the atrial fibrillation with rapid response. The patient was advised to go to the emergency room for further evaluation as per the patient's request. SOCIAL HISTORY: The patient lives with her family. FAMILY HISTORY: No inherited disease. REVIEW OF SYSTEMS: Respiratory system: No shortness of breath. Cardiovascular: The patient has been having some palpitations at times. GI: No nausea or vomiting. No constipation. : No dysuria. Neurologic: The patient feels weak. PHYSICAL EXAMINATION: GENERAL: The patient is alert, awake, and oriented. VITAL SIGNS: Blood pressure was 140/70, pulse is 112, respirations 20 in the office. NECK: Supple. LUNGS: Some rales bilaterally at the bases. HEART: Irregular rate and rhythm. ABDOMEN: Soft. Nontender. EXTREMITIES: There was no edema. LABORATORY DATA: The patient in the emergency room had some tests done, and as per this, WBC 6.8, hemoglobin 13.2, hematocrit 39.9, and platelets 132. Chemistries show that sodium 142, potassium 4.2, chloride 103, bicarbonate 30, BUN 31, creatinine 1.5, and glucose 107. AST 37, ALT 39, alkaline phosphatase is 97, and the patient has troponin of 0.012. BNP was 1540. Also the patient has EKG that has shown atrial fibrillation. The patient was admitted with diagnosis of: 1. New onset of atrial fibrillation. 2. Congestive heart failure. 3. Arthritis. 4. Hypertension. The patient will consult with Dr. Jorgensen of Cardiology. ADDENDUM: The patient was found to have heart rate . However the patient was feeling weak but no dizziness. So, in light of having this change of heart rate from . We have requested, continuous improvement engineer consult with Dr. Oakley. The case was reviewed and discussed with Kanwal Calix, the nurse practitioner. DIAGNOSES: 1. New onset of atrial fibrillation. 2. Congestive heart failure exacerbation. 3. History of hypertension. 4. Arthritis. Jeb Hart MD [facility] # [id number]
[2018-03-26 07:35] LABS: BASO # 0.1 K/uL (0.0-0.2); BASO % 0.9 % (0.0-2.0); EOS # 0.7 K/uL (0.0-0.7); EOS % 11.8 % (0.0-4.0); HEMOGLOBIN 12.9 g/dL (11.0-16.0); LYMPH # 1.3 K/uL (1.0-4.3); LYMPH % 22.5 % (20.0-40.0); MEAN CELL VOLUME 93.9 fL (81.0-99.0); MEAN CORPUSCULAR HEMOGLOBIN 31.2 pg (27.0-31.0); MEAN CORPUSCULAR HGB CONC 33.2 g/dL (33.0-37.0); MONO # 0.5 K/uL (0.0-0.8); MONO % 8.9 % (0.0-10.0); NEUT # 3.2 K/uL (1.8-7.0); NEUT % 55.9 % (50.0-75.0); RBC 4.14 Mil/uL (3.80-5.20); RED CELL DISTRIBUTION WIDTH 14.3 % (11.5-14.5); WHITE BLOOD COUNT 5.8 K/uL (4.8-10.8)
[2018-03-26 07:43] LABS: CALCIUM 8.9 mg/dl (8.6-10.4)
[2018-03-26 08:36] VITALS: BP 136/88; TEMP 97.3; O2SAT 94
[2018-03-26] MEDS: Multivitamin Vitamin B Complex (Nephro-Vite) Tab PO SCH (08:42)
[2018-03-26] MEDS: POLYETHYLENE GLYCOL 3350 17 GM/Dose PACKET PO SCH (09:00)
[2018-03-26] MEDS: Pantoprazole 40 mg EC Tab PO SCH (09:00)
[2018-03-26 10:46] VITALS: PULSE 65
--- NOTE | 2018-03-26 12:27 | CARD ---
APPROVED REPORT Date of service: 03/24/2018 EKG Measurement Heart [id number] <Conclusion> Atrial fibrillation with premature ventricular or aberrantly conducted complexes Nonspecific ST and T wave abnormality Prolonged QT Abnormal ECG
[2018-03-26] MEDS ORDERED: Docusate-Senna 50 mg-8.6 mg Tab PO ONE (13:30)
--- NOTE | 2018-03-26 14:22 | CP.PCM.PN ---
Subjective - Date & Time of Evaluation Date of Evaluation: 03/26/18 Time of Evaluation: 11:00 - Subjective Subjective: ASSISTANT OFFSET PRESS OPERATOR NOTES Patient seen today, denies any chest pain , sob, palpitations, dizziness , HR improved and 60- 70's for thte past [address] Hart today , d/w patient Ref. Pacemaker D/W Dr. Oakley , pacemake out patient and f/u with Dr. Oakley office on next , continue with tylor D/W Dr. Hart , cleared for discharge home and f/u wiht Dr. Hart office on Thursday Discharge plan discussed with patient and daughter , who understands and agrees with plan Patient instructed to contact Dr. Hart office if noticed any bleeding and avoid falls Objective - Vital Signs/Intake and Output Vital Signs (last 24 hours): Temp Pulse Resp BP Pulse Ox 97.3 F L 65 20 136/88 94 L 03/26/18 07:00 03/26/18 07:07 03/26/18 07:00 03/26/18 07:00 03/26/18 08:00 - Medications Medications: Current Medications Amlodipine Besylate (Norvasc) 5 mg PO DAILY [facility] Last Admin: 03/26/18 09:00 Dose: 5 mg Apixaban (Eliquis) 2.5 mg PO BID [facility] Last Admin: 03/26/18 09:00 Dose: 2.5 mg Aspirin (Ecotrin) 81 mg PO DAILY [facility] Last Admin: 03/26/18 08:59 Dose: 81 mg Furosemide (Lasix) 20 mg IVP Q12H [facility] Last Admin: 03/26/18 06:11 Dose: 20 mg Ibuprofen (Motrin Tab) 600 mg PO BID PRN PRN Reason: Pain, moderate (4-7) Last Admin: 03/25/18 19:14 Dose: 600 mg Loratadine (Claritin) 10 mg PO DAILY [facility] Last Admin: 03/26/18 09:00 Dose: 10 mg Montelukast Sodium (Singulair) 10 mg PO HS [facility] Last Admin: 03/25/18 21:34 Dose: 10 mg Pantoprazole Sodium (Protonix Ec Tab) 40 mg PO DAILY [facility] Last Admin: 03/26/18 09:00 Dose: 40 mg Polyethylene Glycol (Miralax) 17 gm PO DAILY [facility] Last Admin: 03/26/18 09:00 Dose: 17 gm Rosuvastatin Calcium (Crestor) 2.5 mg PO HS [facility] Last Admin: 03/25/18 21:34 Dose: 2.5 mg Vitamin B Complex/Vit C/Folic Acid (Nephro-Osvaldo) 1 tab PO 0800 [facility] Last Admin: 03/26/18 08:42 Dose: 1 tab - Labs Labs: 03/26/18 07:23 03/26/18 07:23 PT 11.4 SECONDS (9.7-12.2) 03/23/18 16:56 INR 1.0 03/23/18 16:56 APTT 32 SECONDS (21-34) 03/23/18 16:56
--- NOTE | 2018-03-26 17:17 | PCM.HF ---
Heart Failure Core Measure - Heart Failure Ejection Fraction: 40 % or Greater YOLANDA Inhibitor Prescribed: No Contraindication/Reason for not providing: allergy Beta-Yasmeen Prescribed: None Contraindication/Reason for not providing: bradycardia Angiotensin II Receptor Yasmeen Prescribed: No Contraindication/Reason for not providing: ef>45 AnticoagulationTherapy for Atrial Fibrillation/Atrialflutter: Yes Aldosterone Antagonist Prescribed: No Contraindication/Reason for not providing: ef>45 Hydralazine Nitrate Prescribed: No Contraindication/Reason for not providing: ef>45 Implantable Cardioverter Defibrillator Therapy: No Contraindication/Reason for not providing: AICD planeed next Cardiac Resynchronization Therapy Prescribed: No Contraindication/Reason for not providing: ef>45 - Follow up Will be discharged to: Home Follow Up Date (must be within 7 days from discharge): 04/01/18 Follow Up Time: 09:00
--- NOTE | 2018-03-26 21:00 | PN ---
DATE: 03/26/2018 SUBJECTIVE: The patient denies any palpitation or dizziness. PHYSICAL EXAMINATION: VITAL SIGNS: Blood pressure 136/88, heart rate 77, temperature 97.3, respirations 20. HEENT: Normocephalic. CHEST: Clear. HEART: S1 and S2 regular. ABDOMEN: Soft. EXTREMITIES: Trace leg edema. LABORATORY DATA: SMA-7; sodium 143, potassium 4.3, chloride 103, CO2 of 29, glucose 96, BUN 33, creatinine 1.4. Today's hemoglobin and hematocrit 12.9 and 38.8. White count and platelet count are within normal limit. ASSESSMENT: 1. Paroxysmal atrial fibrillation. 2. Sick sinus syndrome with periods of sinus bradycardia. 3. Heterogenous goiter. The patient is euthyroid. 4. Moderate pulmonary hypertension. 5. Left ventricular diastolic dysfunction. RECOMMENDATIONS: Continue Crestor at 2.5 mg once a day, aspirin 81 mg once a day, Eliquis 2.5 mg once a day, Lasix 20 mg intravenously twice a day, Singulair 10 mg at bedtime, Norvasc 5 mg once a day. The patient can be discharged on current medications. To be followed by warehouse supervisor, Dr. Oakley. The patient's daughter was instructed to bring the patient back for any periods of dizziness, syncope or falls. Yoni Jorgensen MD
--- NOTE | 2018-03-26 23:55 | PN ---
DATE: 03/26/2018 SUBJECTIVE: The patient was seen earlier this morning. The patient was alert and awake . No shortness of breath. No chest pain. No palpitation. No dizziness. The patient is only complaining of still having constipation. PHYSICAL EXAMINATION: VITAL SIGNS: The patient has blood pressure of 136/88, pulse 77, respirations 20, temperature 97.3, and O2 saturation is 94% to 95%. NECK: Supple. LUNGS: Clear now. HEART: Irregular rate and rhythm and positive murmur. ABDOMEN: Soft, nontender. No palpable masses. EXTREMITIES: There is no edema. PLAN: The case was discussed earlier with Dr. Oakley for doing a pacemaker. I have discussed the case also with the patient. Dr. Oakley was contacted by the nurse practitioner, Kanwal Calix. We to put the pacemaker as an outpatient. In the meantime, the patient will be on Norvasc 5 mg, and the patient will come to Dr. Oakley's office, the outside installation machinist, within 6 to 7 days. We are going to continue to see the patient also in my office the day after. Jeb Hart MD
--- NOTE | 2018-03-27 21:12 | DS ---
HISTORY OF PRESENT ILLNESS: This patient is an 87-year-old female who came to my office, complaining of shortness of breath and palpitation. The patient, in the office, was found to have atrial fibrillation which is new with rapid response with heart rate of 112. The patient was advised to go to the emergency room by EMS, but the patient has preferred to go by car with her son. In the emergency room, the patient was evaluated and admitted, and the patient had a consult with Dr. Jorgensen, Cardiology. PHYSICAL EXAMINATION: The patient, in the physical exam, we have found as tachyarrhythmic with atrial fibrillation and also some rales at the bases. During the course of hospitalization, the patient was found to have the heart rate going down to 39-40, and at times going high to 90. So the patient had echocardiogram done and that had shown left atrium was mildly dilated, mitral regurgitation and tricuspid valve regurgitation, and ejection fraction was 70%. The patient had a consult also with Dr. Adrian, the technical healthcare consultant. The decision was made to do a pacemaker and the patient is alert and very functional and has also on many occasions episode of syncope, but decision was made to do the pacemaker as an outpatient. So therefore, the patient will be discharged to home, and we will follow with you, Dr. Adrian, the technical healthcare consultant in the office and also myself. Jeb Hart MD
== END 2018-03-26 14:50 | disposition home or self-care (01) ==
LOC: C.ER 16:41 → C.9E 17:38 → C.6T 19:50
PROVIDERS: ADMIT Specialist; ATTEND Specialist
DX: I11.0 Hypertensive heart disease with heart failure (principal); I50.9 Heart failure, unspecified; I48.0 Paroxysmal atrial fibrillation; J44.9 Chronic obstructive pulmonary disease, unspecified; E78.5 Hyperlipidemia, unspecified; E78.00 Pure hypercholesterolemia, unspecified; M19.90 Unspecified osteoarthritis, unspecified site; Z87.891 Personal history of nicotine dependence; Z79.82 Long term (current) use of aspirin; Z79.899 Other long term (current) drug therapy; E04.2 Nontoxic multinodular goiter; I25.2 Old myocardial infarction; I27.20 Pulmonary hypertension, unspecified
CPT/HCPCS: 36415; 71045; 80048; 80053; 80061; 82948; 83880; 84443; 84484; 85025; 85027; 85610; 85730; 93005; 93306; 96374; 97116; 97162; 99283; G0378; G8978; G8979; J1644; J1940

== ENCOUNTER 2018-04-05 14:35 | Emergency (ER) | payer MEDICARE, MEDICAID ==
[2018-04-05 14:35] VITALS: BMI 27.3
[2018-04-05 14:54] VITALS: BP 138/88; PULSE 86; RESP 20; TEMP 97.9; O2SAT 97
--- NOTE | 2018-04-05 15:45 | C.PDOC ---
History Of Present Illness 87 year old female presents to the ED for evaluation of a small bruise to her right medial breast. Patient's symptoms were evaluated by Dr. Hart as a small resolving hematoma, but she presents to the ED for a second opinion. Patient was referred for an outpatient mammogram, which is pending. Patient takes Eliquis twice/day. She was recently admitted and discharged for CHF exacerbation. Patient is well-known to this ED physician and has been evaluated by this physician in the past. Patient denies fever, chills, chest pain, shortness of breath. Time Seen by Provider: 04/05/18 15:35 Chief Complaint (Nursing): Abnormal Skin Integrity History Per: Patient History/Exam Limitations: no limitations Onset/Duration Of Symptoms: Days Current Symptoms Are (Timing): Still Present Additional History Per: Patient Past Medical History Reviewed: Historical Data, Nursing Documentation, Vital Signs Vital Signs: Last Vital Signs Temp 97.9 F 04/05/18 14:50 Pulse 86 04/05/18 14:50 Resp 20 04/05/18 14:50 BP 138/88 04/05/18 14:50 Pulse Ox 97 04/05/18 16:02 - Medical History PMH: COPD, Fractures (left wrist 3 weeks ago), HTN, Hypercholesterolemia, Hyperlipidemia Denies: Chronic Kidney Disease Surgical History: Appendectomy - [facility] Procedures APPLICATION OF SPLINT (06/07/15) ASSISTANCE WITH RESPIRATORY VENTILATION, 24-96 HRS, CPAP (12/15/17) DRESSING OF WOUND NEC (04/23/13) TETANUS TOXOID ADMINIST (04/23/13) Family History: States: Unknown Family Hx - Social History Hx Tobacco Use: No Hx Alcohol Use: No Hx Substance Use: No - Immunization History Hx Tetanus Toxoid Vaccination: Yes Hx Influenza Vaccination: Yes Hx Pneumococcal Vaccination: Yes Review Of Systems Cardiovascular: Negative for: Chest Pain Respiratory: Negative for: Shortness of Breath Skin: Positive for: Bruising (right medial breast), Other (patient experiencing similar small bruising since starting Eliquis ) Physical Exam - Physical Exam Appears: Non-toxic, No Acute Distress Skin: Normal Color, Warm, Dry, No Rash Head: Atraumatic, Normacephalic Eye(s): bilateral: Normal Inspection Oral Mucosa: Moist Neck: Supple Chest: Symmetrical, No Deformity, No Tenderness, Other (large breasts. 4x4cm area of nontender bruising to right medial breast. no hematoma ) Cardiovascular: Rhythm Regular, No Murmur, No JVD Respiratory: Normal Breath Sounds, No Rales, No Rhonchi, No Wheezing Extremity: Normal ROM, Capillary Refill (less than 2 seconds ), No Swelling Neurological/Psych: Oriented x3, Normal Speech, Normal Cognition ED Course And Treatment O2 Sat by Pulse Oximetry: 97 (on RA) Pulse Ox Interpretation: Normal Progress Note: Pelvis XR ordered. Medical Decision Making Medical Decision Making: small area of bruising @ R medial breast- probably related to Eliquis- already Mammo ordered by Dr. Hart- pt wanted 2nd opinion Seems to be a small hematoma with small area of bruising approx 4x4 cm in diameter c/w resolving bruising. no urgent CT/Mammo indicated at this time Pt reassured- family @ bedside will take for elective Mammo. Disposition Doctor Will See Patient In The: Office Counseled Patient/Family Regarding: Studies Performed, Diagnosis - Disposition Referrals: Jeb Hart MD [Staff Provider] - Disposition: HOME/ ROUTINE Disposition Time: 15:45 Condition: GOOD Additional Instructions: sigue con kimbrough mamographia electivamente bolsa de hielo en el area del mamma si tiene dolor No es nada peligroso Es algo typico con las pacientes tomando Eliquis (un anti-coagulante) Instructions: Taking Care of Bruises Forms: [facility] (Indonesian) Print Language: RWANDAN - Clinical Impression Clinical Impression: Bruise of breast - Scribe Statement The provider has reviewed the documentation as recorded by the Scribe (Lucy Ruiz) Provider Attestation: All medical record entries made by the Scribe were at my direction and personally dictated by me. I have reviewed the chart and agree that the record accurately reflects my personal performance of the history, physical exam, medical decision making, and the department course for this patient. I have also personally directed, reviewed, and agree with the discharge instructions and disposition.
== END 2018-04-05 16:02 | disposition home or self-care (01) ==
LOC: C.ER 14:35
DX: S20.01XA Contusion of right breast, initial encounter (principal); X58.XXXA Exposure to other specified factors, initial encounter; Y92.9 Unspecified place or not applicable

== ENCOUNTER 2018-07-13 10:24 | Emergency (ER) | payer MEDICARE, MEDICAID ==
[2018-07-13 10:25] VITALS: BMI 27.3
[2018-07-13 11:06] VITALS: RESP 22
[2018-07-13] MEDS ORDERED: Sodium Chloride 0.9% 500 ML IV ONE ×2 (11:46→12:26)
[2018-07-13] MEDS ORDERED: Silver Sulfadiazine 1% Cream (20 gm) TOP STA (11:47)
--- NOTE | 2018-07-13 11:49 | C.PDOC ---
History Of Present Illness 88 yo female brought to ED by family member for evaluation of left upper back open wound noted today. As per daughter, " she lives alone and has chronic upper back pain, was using hot and cold packs to skin and today noted open wound". AT present time, pt c/o pain over wound area-left upper back. Otherwise, pt and family denies fever, chills, headache, dizziness, CP, SOB, dyspnea, diaphoresis, palpitation, abd. pain, N/V, denies weakness, sensory or vascular deficits to B/L UEs and LEs. AT present time, pt appears ambulatory in ED, AAO#3, not in any apparent distress. Time Seen by Provider: 07/13/18 11:06 Chief Complaint (Nursing): Abnormal Skin Integrity History Per: Patient, Family Onset/Duration Of Symptoms: Gradual Past Medical History Reviewed: Historical Data, Nursing Documentation, Vital Signs Vital Signs: Last Vital Signs Temp 98.2 F 07/13/18 10:52 Pulse 88 07/13/18 10:52 Resp 22 07/13/18 10:52 BP 119/87 07/13/18 10:52 Pulse Ox 96 07/13/18 10:52 - Medical History PMH: COPD, Fractures (left wrist), HTN, Hypercholesterolemia, Hyperlipidemia, Pneumonia Denies: Chronic Kidney Disease Surgical History: Appendectomy - [facility] Procedures APPLICATION OF SPLINT (06/07/15) ASSISTANCE WITH RESPIRATORY VENTILATION, 24-96 HRS, CPAP (12/15/17) DRESSING OF WOUND NEC (04/23/13) TETANUS TOXOID ADMINIST (04/23/13) Family History: States: Unknown Family Hx - Social History Hx Tobacco Use: No Hx Alcohol Use: No Hx Substance Use: No - Immunization History Hx Tetanus Toxoid Vaccination: Yes Hx Influenza Vaccination: Yes Hx Pneumococcal Vaccination: Yes Review Of Systems Except As Marked, All Systems Reviewed And Found Negative. Constitutional: Negative for: Fever, Chills ENT: Negative for: Throat Pain, Throat Swelling Cardiovascular: Negative for: Chest Pain, Palpitations Respiratory: Negative for: Cough, Shortness of Breath Gastrointestinal: Negative for: Nausea, Vomiting Genitourinary: Negative for: Incontinence Musculoskeletal: Positive for: Back Pain Skin: Positive for: Lesions Neurological: Negative for: Weakness, Numbness Physical Exam - Physical Exam Appears: Well, Non-toxic, No Acute Distress Skin: Normal Color, Warm, Dry, Other (Left upper back area of erythema, small blister and dry skin w/pilling noted, consistant with second degree burn 4%. No edema, no proximal streaking,) Head: Atraumatic, Normacephalic Eye(s): bilateral: PERRL Ear(s): Bilateral: Normal Nose: No Flaring, No Discharge Oral Mucosa: Moist Throat: No Erythema, No Drooling Neck: Normal ROM, Trachea Midline, No Midline Cervical Tenderness, No Step Off Deformity, Supple Chest: Symmetrical, No Deformity Cardiovascular: Rhythm Regular, No Murmur, No JVD Respiratory: No Decreased Breath Sounds, No Accessory Muscle Use, No Stridor, No Wheezing Gastrointestinal/Abdominal: Soft, No Tenderness, No Distention, No Guarding Back: No Vertebral Tenderness, No Paraspinal Tenderness Extremity: Normal ROM, No Tenderness, No Deformity, No Swelling Extremity: Bilateral: Atraumatic Neurological/Psych: Oriented x3, Normal Speech, Normal Motor, Normal Sensation, Normal Reflexes ED Course And Treatment - Laboratory Results Result Diagrams: 07/13/18 12:18 07/13/18 12:18 Lab Interpretation: No Changes Compared To Prior Results ECG: Interpreted By Me, Viewed By Me ECG Rhythm: Sinus Rhythm ECG Interpretation: No Changes From Prior Interpretation Of ECG: SR@66/min, LAD, no acute T wave or ST-T changes O2 Sat by Pulse Oximetry: 96 Pulse Ox Interpretation: Normal - Radiology CXR: Interpreted by Me, Viewed By Me CXR Interpretation: Yes: Cardiomegaly. No: Infiltrates Progress Note: case discussed with , discharge with outpt f/u recommend. On re-eval, pt is afebrile, hemodynamicaly stable. Non-toxic. Ambulatory in ED with stable gait. neck: Supple, (-) JVD. Lungs: CTA B/L, BS equal B/L. CVS: (+)S1S2, reg. AbdL benign, (-) guaridng, (-) rebound. Neuorlogicaly intact. Skin; exam c/w 2nd degree skin burn 4% to left upper back, No edema, no proximal streaking, no evidence of superimposed infection. Blood work review and appears baseline, no acute leukocytosis. case discussed, results review with and discharge approved with outpt f/u. results review and discussed with pt and family. Pt advised, ref. to f/u with PMD in 1-2 days for re-evaluation. return to Ed if any worsening or new changes. Pt and family understand and agrees with plan. Pt stable for discharge now. Disposition Counseled Patient/Family Regarding: Studies Performed, Diagnosis, Need For Followup, Rx Given - Disposition Referrals: Jeb Hart MD [Staff Provider] - Disposition: HOME/ ROUTINE Disposition Time: 13:21 Condition: STABLE Additional Instructions: Take medication as prescribed Change wound dressing daily Follow up with PMD in 1-2 days for re-evaluation. return if any new changes. Prescriptions: Cephalexin [cephalexin] 500 mg PO Q6 #28 cap Silver Sulfadiazine 1% 50 gm [Silvadene 1% 50 gm] 1 ea EXT BID #1 jar traMADol [Ultram] 50 mg PO Q12 #6 tab Instructions: Skin Chavez, Low Back Pain (DC) Forms: [employer] (Peruvian) Print Language: NIGERIEN - Clinical Impression Clinical Impression: Second degree burn, Upper back pain
[2018-07-13 12:22] LABS: BASO # 0.1 K/uL (0.0-0.2); EOS # 0.1 K/uL (0.0-0.7); EOS % 0.9 % (0.0-4.0); HEMOGLOBIN 13.5 g/dL (11.0-16.0); LYMPH # 1.7 K/uL (1.0-4.3); LYMPH % 14.2 % (20.0-40.0); MEAN CELL VOLUME 93.8 fL (81.0-99.0); MEAN CORPUSCULAR HEMOGLOBIN 31.4 pg (27.0-31.0); MEAN CORPUSCULAR HGB CONC 33.5 g/dL (33.0-37.0); MEAN PLATELET VOLUME 10.1 fL (7.2-11.7); MONO # 0.9 K/uL (0.0-0.8); MONO % 7.5 % (0.0-10.0); NEUT # 8.9 K/uL (1.8-7.0); NEUT % 76.4 % (50.0-75.0); RBC 4.28 Mil/uL (3.80-5.20); RED CELL DISTRIBUTION WIDTH 14.7 % (11.5-14.5)
[2018-07-13 12:24] LABS: WHITE BLOOD COUNT 11.6 K/uL (4.8-10.8)
[2018-07-13] MEDS ORDERED: Silver Sulfadiazine 1% Cream (20 gm) ONE (12:26)
[2018-07-13 12:30] LABS: INR 1.3; PROTHROMBIN TIME 13.7 SECONDS (9.7-12.2)
[2018-07-13 12:34] LABS: ALB/GLOB RATIO 1.3 (1.0-2.1); ALBUMIN 4.1 g/dL (3.5-5.0); ALT/SGPT 24 U/L (9-52); AST/SGOT 23 U/L (14-36); BLOOD UREA NITROGEN 22 mg/dL (7-17); CALCIUM 9.3 mg/dl (8.6-10.4); GFR NON-AFRICAN AMERICAN 39
[2018-07-13 12:46] LABS: B-TYPE NATRIURETIC PEPTIDE 2330 pg/mL (0-900)
[2018-07-13 12:53] LABS: SQUAMOUS EPITHIAL < 1 /hpf (0-5); URINE BILIRUBIN NEGATIVE (NEGATIVE); URINE BLOOD NEGATIVE (NEGATIVE); URINE CLARITY Clear (Clear); URINE COLOR Yellow (YELLOW); URINE GLUCOSE (UA) NORMAL (Normal); URINE HYALINE CAST 0-2 /lpf (0-2); URINE LEUKOCYTE ESTERASE NEG Leu/uL (Negative); URINE PROTEIN NEGATIVE (NEGATIVE); URINE UROBILINOGEN NORMAL mg/dL (0.2-1.0)
[2018-07-13 14:23] VITALS: BP 129/74; PULSE 92; TEMP 98
--- NOTE | 2018-07-13 14:31 | RAD ---
Date of service: 07/13/2018 PROCEDURE: CHEST RADIOGRAPH, 1 VIEW HISTORY: chest pain COMPARISON: Chest radiograph dated 03/23/2018. FINDINGS: LUNGS: Clear. PLEURA: No pneumothorax or pleural fluid seen. CARDIOVASCULAR: Aortic atherosclerotic calcifications. Cardiomediastinal silhouette stably enlarged. OSSEOUS STRUCTURES: Unchanged. VISUALIZED UPPER ABDOMEN: Normal. OTHER FINDINGS: None. IMPRESSION: No active disease.
[2018-07-13 16:57] VITALS: O2SAT 96
--- NOTE | 2018-07-14 11:36 | CARD ---
APPROVED REPORT Date of service: 07/13/2018 EKG Measurement Heart [id number] <Conclusion> Sinus rhythm with marked sinus arrhythmia Possible Left atrial enlargement Nonspecific T wave abnormality Abnormal ECG
== END 2018-07-13 14:21 | disposition home or self-care (01) ==
LOC: C.ER 10:24
DX: T21.23XA Burn of second degree of upper back, initial encounter (principal); X08.8XXA Exposure to other specified smoke, fire and flames, initial encounter
CPT/HCPCS: 71045; 80053; 81001; 83880; 84484; 85025; 85610; 85730; 93005; 99284; J7040

== ENCOUNTER 2018-10-14 15:25 | Outpatient (CLI) | payer MEDICARE, MEDICAID | END 2018-10-14 15:26 | disposition home or self-care (01) | LOC: C.RADH 15:25 ==

== ENCOUNTER 2018-11-04 15:21 | Inpatient (IN) | payer MEDICARE, MEDICAID ==
[2018-11-04 15:21] VITALS: BMI 27.3
[2018-11-04] MEDS ORDERED: Sodium Chloride 0.9% 1,000 ML IV STA (17:17)
--- NOTE | 2018-11-04 17:30 | C.PDOC ---
History Of Present Illness 88 y/o F c PMHx HTN, HLD, thyroid disease, hemorrhoids p/w abdominal pain x 14 hours. Pain is in abdomen, mostly R sided, associated with vomiting and diarrhea. Denies fever, chills, chest pain, dyspnea, dysuria. PMD [place] <Darwin Foley - Last Filed: 11/04/18 18:56> <Darwin Foley - Last Filed: 11/04/18 18:56> <John Gale - Last Filed: 11/04/18 20:47> Time Seen by Provider: 11/04/18 17:08 Chief Complaint (Nursing): GI Problem Past Medical History Vital Signs: Last Vital Signs Temp 98 F 11/04/18 15:29 Pulse 97 H 11/04/18 15:29 Resp 18 11/04/18 15:29 BP 149/88 11/04/18 15:29 Pulse Ox 100 11/04/18 15:29 - Medical History PMH: COPD, Fractures (left wrist), HTN, Hypercholesterolemia, Hyperlipidemia, Pneumonia Denies: Chronic Kidney Disease Surgical History: Appendectomy - [facility] Procedures APPLICATION OF SPLINT (06/07/15) ASSISTANCE WITH RESPIRATORY VENTILATION, 24-96 HRS, CPAP (12/15/17) DRESSING OF WOUND NEC (04/23/13) TETANUS TOXOID ADMINIST (04/23/13) Family History: States: Unknown Family Hx - Social History Hx Tobacco Use: No Hx Alcohol Use: No Hx Substance Use: No - Immunization History Hx Tetanus Toxoid Vaccination: Yes Hx Influenza Vaccination: Yes Hx Pneumococcal Vaccination: Yes <Darwin Foley - Last Filed: 11/04/18 18:56> Vital Signs: Last Vital Signs Temp 98.9 F 11/04/18 18:39 Pulse 91 H 11/04/18 18:39 Resp 16 11/04/18 18:39 BP 137/76 11/04/18 18:39 Pulse Ox 100 11/04/18 18:56 - [facility] Procedures APPLICATION OF SPLINT (06/07/15) ASSISTANCE WITH RESPIRATORY VENTILATION, 24-96 HRS, CPAP (12/15/17) DRESSING OF WOUND NEC (04/23/13) TETANUS TOXOID ADMINIST (04/23/13) <John Gale - Last Filed: 11/04/18 20:47> Review Of Systems Except As Marked, All Systems Reviewed And Found Negative. Constitutional: Negative for: Fever Cardiovascular: Negative for: Chest Pain <Darwin Foley - Last Filed: 11/04/18 18:56> Physical Exam - Physical Exam Additional Physical Exam Comments: Constitutional: No acute distress. Head: Normocephalic. Atraumatic. Eyes: PERRL. ENT: Moist mucous membranes. Neck: Supple. Cardiovascular: Regular rate. Radial pulse 2+ bilaterally. Chest: No tenderness. Respiratory: Clear to auscultation bilaterally. GI: Soft.RUQ/epigastric tenderness. Nondistended. Back: No CVA tenderness. Musculoskeletal: No tenderness or swelling of extremities. Skin: No rash. Neurologic: Alert, no focal deficit. <Darwin Foley - Last Filed: 11/04/18 18:56> ED Course And Treatment - Laboratory Results Result Diagrams: 11/04/18 18:12 11/04/18 18:12 O2 Sat by Pulse Oximetry: 100 <Darwin Foely - Last Filed: 11/04/18 18:56> - Laboratory Results Result Diagrams: 11/04/18 18:12 11/04/18 18:12 Lab Results: Total Bilirubin 0.6 mg/dL (0.2-1.3) 11/04/18 18:12 AST 49 U/L (14-36) H D 11/04/18 18:12 ALT 22 U/L (9-52) 11/04/18 18:12 Alkaline Phosphatase 115 U/L (38-126) 11/04/18 18:12 Total Protein 7.7 g/dL (6.3-8.3) 11/04/18 18:12 Albumin 4.4 g/dL (3.5-5.0) 11/04/18 18:12 Globulin 3.2 gm/dL (2.2-3.9) 11/04/18 18:12 Albumin/Globulin Ratio 1.4 (1.0-2.1) 11/04/18 18:12 Lipase 221 U/L (23-300) 11/04/18 18:12 Urine Color Yellow (YELLOW) 11/04/18 18:12 Urine Clarity Hazy (Clear) 11/04/18 18:12 Urine pH 5.0 (5.0-8.0) 11/04/18 18:12 Ur Specific Douglas 1.012 (1.003-1.030) 11/04/18 18:12 Urine Protein 1+ mg/dL (NEGATIVE) H 11/04/18 18:12 Urine Glucose (UA) Normal mg/dL (Normal) 11/04/18 18:12 Urine Ketones Negative mg/dL (NEGATIVE) 11/04/18 18:12 Urine Blood Negative (NEGATIVE) 11/04/18 18:12 Urine Nitrate Positive (NEGATIVE) H 11/04/18 18:12 Urine Bilirubin Negative (NEGATIVE) 11/04/18 18:12 Urine Urobilinogen Normal mg/dL (0.2-1.0) 11/04/18 18:12 Ur Leukocyte Esterase Neg Aydin/uL (Negative) 11/04/18 18:12 Urine WBC (Auto) 2 /hpf (0-5) 11/04/18 18:12 Urine RBC (Auto) 1 /hpf (0-3) 11/04/18 18:12 Ur Squamous Epith Cells < 1 /hpf (0-5) 11/04/18 18:12 Urine Bacteria Many (<OCC) H 11/04/18 18:12 Hyaline Casts 3-5 /lpf (0-2) H 11/04/18 18:12 Pulse Ox Interpretation: Normal <John Gale - Last Filed: 11/04/18 20:47> Medical Decision Making Medical Decision Making: EKG Sinus rhythm 90 bpm, ST depressions/T wave inversions anterior and lateral and inferior, unchanged from previous. UA shows UTI. Cipro administered. Pending CT. Signed out to ED night team at change of shift. <Darwin Foley - Last Filed: 11/04/18 18:56> Disposition <Darwin Foley - Last Filed: 11/04/18 18:56> Discussed With : Jeb Hart Comment: accepted the pt on his service and took over the care at 8:46 PM Doctor Will See Patient In The: Hospital Counseled Patient/Family Regarding: Studies Performed, Diagnosis - Disposition Disposition Time: 19:00 - POA Present On Arrival: None <John Gale - Last Filed: 11/04/18 20:47> - Disposition Disposition: HOSPITALIZED Condition: FAIR Forms: [facility] (Occitan) - Clinical Impression Clinical Impression: Gastritis, Abdominal pain, Enterocolitis Decision To Admit <Darwin Foley - Last Filed: 11/04/18 18:56> - Pt Status Changed To: Hospital Disposition Of: Inpatient - Admit Certification Admit to Inpatient:: After my assessment, the patient will require hospitalization for at least two midnights. This is because of the severity of symptoms shown, intensity of services needed, and/or the medical risk in this patient being treated as an outpatient. - InPatient: Physician Admission Certification: I certify that this patient requires 2 or more midnights of care for the following reason:: After my assessment, the patient will require hospitalization for at least two midnights. This is because of the severity of symptoms shown, intensity of services needed, and/or the medical risk in this patient being treated as an outpatient. - . Bed Request Type: Regular Admitting Physician: Jeb Hart <John Gale - Last Filed: 11/04/18 20:47> - . Patient Diagnosis: Gastritis, Abdominal pain, Enterocolitis, Renal mass
[2018-11-04 18:18] LABS: BASO % 0.1 % (0.0-2.0); EOS # 0.1 K/uL (0.0-0.7); HEMOGLOBIN 12.6 g/dL (11.0-16.0); LYMPH # 0.5 K/uL (1.0-4.3); LYMPH % 5.3 % (20.0-40.0); MEAN CELL VOLUME 92.3 fL (81.0-99.0); MEAN CORPUSCULAR HEMOGLOBIN 29.6 pg (27.0-31.0); MEAN PLATELET VOLUME 9.9 fL (7.2-11.7); MONO # 0.7 K/uL (0.0-0.8); MONO % 7.2 % (0.0-10.0); NEUT # 7.9 K/uL (1.8-7.0); NEUT % 86.4 % (50.0-75.0); NRBC % 0.1 % (0.0-2.0); PLATELET COUNT 163 K/uL (130-400); RBC 4.28 Mil/uL (3.80-5.20); RED CELL DISTRIBUTION WIDTH 16.1 % (11.5-14.5); WHITE BLOOD COUNT 9.2 K/uL (4.8-10.8)
[2018-11-04 18:21] LABS: SQUAMOUS EPITHIAL < 1 /hpf (0-5); URINE BACTERIA MANY (<OCC); URINE BILIRUBIN NEGATIVE (NEGATIVE); URINE BLOOD NEGATIVE (NEGATIVE); URINE CLARITY Hazy (Clear); URINE COLOR Yellow (YELLOW); URINE GLUCOSE (UA) NORMAL (Normal); URINE LEUKOCYTE ESTERASE NEG Leu/uL (Negative); URINE PROTEIN 1+ mg/dL (NEGATIVE); URINE UROBILINOGEN NORMAL mg/dL (0.2-1.0)
[2018-11-04] MEDS ORDERED: Ciprofloxacin 400mg/200ml D5W 400 MG/200 ML BAG IVPB STA (18:23)
[2018-11-04 18:31] LABS: ALB/GLOB RATIO 1.4 (1.0-2.1); ALBUMIN 4.4 g/dL (3.5-5.0); CALCIUM 9.5 mg/dl (8.6-10.4)
[2018-11-04] MEDS ORDERED: Ciprofloxacin 400mg/200ml D5W 400 MG/200 ML BAG IVPB ONE (18:48)
[2018-11-04] MEDS ORDERED: Iohexol 300 100 ML IJ ONE (18:48)
[2018-11-04 18:50] LABS: LYMPHOCYTE 4 % (20-40); MONOCYTE 5 % (0-10); NEUTROPHIL 91 % (50-75); TOTAL CELLS COUNTED 100
[2018-11-04 18:51] LABS: PLATELET ESTIMATE NORMAL (NORMAL)
[2018-11-04] MEDS ORDERED: metroNIDAZOLE IV 500 mg/100 ml 500 MG/100 ML BAG IVPB SCH (20:30)
[2018-11-04 21:53] VITALS: RESP 20
[2018-11-04] MEDS: Sodium Chloride 0.45% 1,000 ML IV SCH (21:58)
[2018-11-04] MEDS: metroNIDAZOLE IV 500 mg/100 ml 500 MG/100 ML BAG IVPB SCH (22:05)
[2018-11-05] MEDS: metroNIDAZOLE IV 500 mg/100 ml 500 MG/100 ML BAG IVPB SCH ×3 (05:23→22:03)
[2018-11-05 07:06] LABS: BASO % 0.2 % (0.0-2.0); EOS % 0.3 % (0.0-4.0); HEMOGLOBIN 10.8 g/dL (11.0-16.0); LYMPH # 0.7 K/uL (1.0-4.3); LYMPH % 11.8 % (20.0-40.0); MEAN CELL VOLUME 94.2 fL (81.0-99.0); MEAN CORPUSCULAR HEMOGLOBIN 30.9 pg (27.0-31.0); MEAN CORPUSCULAR HGB CONC 32.8 g/dL (33.0-37.0); MEAN PLATELET VOLUME 9.8 fL (7.2-11.7); MONO # 0.6 K/uL (0.0-0.8); MONO % 11.5 % (0.0-10.0); NEUT # 4.3 K/uL (1.8-7.0); NEUT % 76.2 % (50.0-75.0); NRBC % 0.1 % (0.0-2.0); RBC 3.5 Mil/uL (3.80-5.20); RED CELL DISTRIBUTION WIDTH 16.4 % (11.5-14.5); WHITE BLOOD COUNT 5.6 K/uL (4.8-10.8)
[2018-11-05 07:18] LABS: ALB/GLOB RATIO 1.2 (1.0-2.1); ALBUMIN 3.1 g/dL (3.5-5.0); CALCIUM 8.2 mg/dl (8.6-10.4)
--- NOTE | 2018-11-05 08:38 | CT ---
Date of service: 11/04/2018 PROCEDURE: CT Abdomen and Pelvis with contrast HISTORY: abd pain, vomiting COMPARISON: None available. TECHNIQUE: Contrast dose: 100 cc Omnipaque 300 IV Radiation dose: Total exam DLP = 397.49 mGy-cm. This CT exam was performed using one or more of the following dose reduction techniques: Automated exposure control, adjustment of the mA and/or kV according to patient size, and/or use of iterative reconstruction technique. FINDINGS: LOWER THORAX: No visible consolidation, pleural effusion, or pneumothorax. Partially imaged cardiomegaly. LIVER: Nodular hepatic contour. GALLBLADDER AND BILE DUCTS: Unremarkable. PANCREAS: Pancreatic duct measures approximately 5 mm. SPLEEN: Unremarkable. ADRENALS: Unremarkable. KIDNEYS AND URETERS: The kidneys enhance symmetrically. No hydronephrosis or obstructing calculus identified. Indeterminate 2.1 cm exophytic left renal mass measures approximately 63 Hounsfield units. VASCULATURE: No aortic aneurysm. Dense atherosclerotic calcifications of the aorta and branches. BOWEL: Stomach is nondistended. Gastric wall appears thickened. Lack of oral contrast limits evaluation for bowel pathology. Bowel loops appear within normal limits of caliber without evidence of obstruction. Several thick-walled small bowel loops, correlate for enteritis. Diverticulosis without CT evidence of acute diverticulitis. APPENDIX: No secondary signs of acute appendicitis. PERITONEUM: No significant free fluid. No definite free air. LYMPH NODES: No bulky adenopathy identified. BLADDER: Mildly thick walled urinary bladder. REPRODUCTIVE: Uterus is absent consistent with hysterectomy. BONES: Osseous demineralization. Degenerative changes. Scoliosis. OTHER FINDINGS: Small fat containing left inguinal hernia. IMPRESSION: 2.1 cm exophytic left renal mass measures approximately 63 HU, indeterminate; appearance concerning for malignant neoplasm until proven otherwise. Small bowel wall thickening; correlate clinically for enteritis. Gastric wall thickening raises concern for gastritis. Fat containing left inguinal hernia. Additional findings as above. Preliminary impression was provided by [facility] [place].
--- NOTE | 2018-11-05 08:40 | CP.PCM.CON ---
<Norman Berger - Last Filed: 11/05/18 13:56> History of Present Illness - History of Present Illness History of Present Illness: PGY6 GI Fellow Consult Note Patient is an 88yo female with PMHx significant for diastolic CHF (EF 70%), atrial fibrillation on Eliquis, sick sinus syndrome/tachy-kely, prior NSTEMI, HTN, dyslipidemia, multinodular goiter who presented to the ED with complaint of abdominal pain, nausea, vomiting and diarrhea. Patient reports one day of sudden onset right-sided abdominal pain followed by nausea and multiple episodes of vomiting and accompanied by more than 5 episodes of loose, watery stool. Since arrival in the ED, she has been given IV zofran, morphine and was started on empiric therapy with Cipro/Flagyl. A CT scan performed showed diffuse enteritis with air/fluid levels throughout consistent with her history of diarrhea. A malignant-appearing left renal mass was identified as well. Currently, patient is resting comfortably in bed and has not had any further episodes of diarrhea, nausea, vomiting or abdominal pain since admission. Denies fever, chills, recent weight loss or hematochezia/melena. 12 system ROS performed and negative except where stated PMHx: See HPI PSHx: Appendectomy FHx: Patient denies significnat family history Social: Denies tobacco, EtOH or illicit drug use Endo: Denies prior endoscopic evaluation Past Patient History - Infectious Disease Hx of Infectious Diseases: None - Past Medical History & Family History Past Medical History?: Yes - Past Social History Smoking Status: Never Smoked - CARDIAC Hx Hypercholesterolemia: Yes Hx Hypertension: Yes - PULMONARY Hx Chronic Obstructive Pulmonary Disease (COPD): Yes Hx Pneumonia: Yes - NEUROLOGICAL Hx Neurological Disorder: No - HEENT Hx HEENT Problems: No - RENAL Hx Chronic Kidney Disease: No - ENDOCRINE/METABOLIC Hx Endocrine Disorders: No - HEMATOLOGICAL/ONCOLOGICAL Hx Blood Disorders: No - INTEGUMENTARY Hx Dermatological Problems: No - MUSCULOSKELETAL/RHEUMATOLOGICAL Hx Falls: No - GASTROINTESTINAL Hx Gastrointestinal Disorders: No - GENITOURINARY/GYNECOLOGICAL Hx Genitourinary Disorders: No - PSYCHIATRIC Hx Substance Use: No - SURGICAL HISTORY Hx Appendectomy: Yes - ANESTHESIA Hx Anesthesia: Yes Hx Anesthesia Reactions: No Meds Allergies/Adverse Reactions: Allergies Allergy/AdvReac Type Severity Reaction Status Date / Time meclizine Allergy Verified 11/04/18 15:33 lisinopril AdvReac Severe ANGIOEDEMA Verified 11/04/18 15:33 - Medications Medications: Current Medications Amlodipine Besylate (Norvasc) [address] [facility] Apixaban (Eliquis) 2.[address] [facility] Aspirin (Ecotrin) [address] [facility] Docusate Sodium (Colace) [address] [facility] Furosemide (Lasix) [address] [facility] Metronidazole (Flagyl) 500 mg in 100 mls @ 100 mls/hr IVPB Q8H [facility]; Protocol Last Admin: 11/05/18 05:23 Dose: 100 mls/hr Ciprofloxacin (Cipro 400mg/200ml Dsw) 400 mg in 200 mls @ 133 mls/hr IVPB DAILY [facility]; Protocol Sodium Chloride (Sodium Chloride 0.45%) 1,000 mls @ 70 mls/hr IV .[id number] [facility] Last Admin: 11/04/18 21:58 Dose: 70 mls/hr Pantoprazole Sodium (Protonix Inj) [address] [facility] Rosuvastatin Calcium (Crestor) [address] [facility] Last Admin: 11/04/18 23:02 Dose: 10 mg Physical Exam - Constitutional Appears: Non-toxic, No Acute Distress - Eye Exam Eye Exam: EOMI, PERRL - ENT Exam ENT Exam: Mucous Membranes Moist - Respiratory Exam Respiratory Exam: Clear to Auscultation Bilateral. absent: Rales, Rhonchi, Wheezes - Cardiovascular Exam Cardiovascular Exam: RRR, +S1, +S2, Systolic Murmur (holosystolic) - GI/Abdominal Exam GI & Abdominal Exam: Normal Bowel Sounds, Soft. absent: Distended, Firm, Guarding, Organomegaly, Rigid, Tenderness - Extremities Exam Extremities exam: Positive for: normal inspection. Negative for: pedal edema - Neurological Exam Neurological exam: Alert, Oriented x3 - Psychiatric Exam Psychiatric exam: Normal Affect, Normal Mood - Skin Skin Exam: Dry, Warm Results - Vital Signs Recent Vital Signs: Last Vital Signs Temp 98.2 F 11/05/18 00:00 Pulse 71 11/05/18 00:00 Resp 20 11/05/18 00:00 BP 124/72 11/05/18 00:00 Pulse Ox 95 11/05/18 00:00 - Labs Result Diagrams: 11/05/18 06:51 11/05/18 06:51 Labs: Laboratory Results - last 24 hr 11/04/18 11/04/18 11/04/18 18:12 18:12 18:12 WBC 9.2 RBC 4.28 Hgb 12.6 Hct 39.5 MCV 92.3 MCH 29.6 MCHC 32.0 L RDW 16.1 H Plt Count 163 MPV 9.9 Neut % (Auto) 86.4 H Lymph % (Auto) 5.3 L [place] % (Auto) 7.2 Eos % (Auto) 1.0 Baso % (Auto) 0.1 Neut # (Auto) 7.9 H Lymph # (Auto) 0.5 L [place] # (Auto) 0.7 Eos # (Auto) 0.1 Baso # (Auto) 0.0 Neutrophils % (Manual) 91 H Lymphocytes % (Manual) 4 L Monocytes % (Manual) 5 Platelet Estimate Normal RBC Morphology Normal Sodium 141 Potassium 4.0 Chloride 108 H Carbon Dioxide 22 Anion Gap 15 BUN 22 H Creatinine 1.2 Est GFR ( Amer) 51 Est GFR (Non-Af Amer) 42 Random Glucose 90 Calcium 9.5 Total Bilirubin 0.6 AST 49 H D ALT 22 Alkaline Phosphatase 115 Total Protein 7.7 Albumin 4.4 Globulin 3.2 Albumin/Globulin Ratio 1.4 Lipase 221 Urine Color Yellow Urine Clarity Hazy Urine pH 5.0 Ur Specific [place] 1.012 Urine Protein 1+ H Urine Glucose (UA) Normal Urine Ketones Negative Urine Blood Negative Urine Nitrate Positive H Urine Bilirubin Negative Urine Urobilinogen Normal Ur Leukocyte Esterase Neg Urine WBC (Auto) 2 Urine RBC (Auto) 1 Ur Squamous Epith Cells < 1 Urine Bacteria Many H Hyaline Casts 3-5 H 11/05/18 11/05/18 06:51 06:51 WBC 5.6 RBC 3.50 L Hgb 10.8 L Hct 33.0 L MCV 94.2 MCH 30.9 MCHC 32.8 L RDW 16.4 H Plt Count 138 MPV 9.8 Neut % (Auto) 76.2 H Lymph % (Auto) 11.8 L [place] % (Auto) 11.5 H Eos % (Auto) 0.3 Baso % (Auto) 0.2 Neut # (Auto) 4.3 Lymph # (Auto) 0.7 L [place] # (Auto) 0.6 Eos # (Auto) 0.0 Baso # (Auto) 0.0 Neutrophils % (Manual) Lymphocytes % (Manual) Monocytes % (Manual) Platelet Estimate RBC Morphology Sodium 137 Potassium 3.6 Chloride 108 H Carbon Dioxide 23 Anion Gap 9 L BUN 17 Creatinine 1.3 H Est GFR ( Amer) 47 Est GFR (Non-Af Amer) 39 Random Glucose 81 Calcium 8.2 L Total Bilirubin 0.3 AST 33 ALT 25 Alkaline Phosphatase 84 Total Protein 5.5 L Albumin 3.1 L D Globulin 2.5 Albumin/Globulin Ratio 1.2 Lipase Urine Color Urine Clarity Urine pH Ur Specific [place] Urine Protein Urine Glucose (UA) Urine Ketones Urine Blood Urine Nitrate Urine Bilirubin Urine Urobilinogen Ur Leukocyte Esterase Urine WBC (Auto) Urine RBC (Auto) Ur Squamous Epith Cells Urine Bacteria Hyaline Casts Assessment & Plan - Assessment and Plan (Free Text) Assessment: Patient is an 88yo female with PMHx significant for diastolic CHF (EF 70%), atrial fibrillation on Eliquis, sick sinus syndrome/tachy-kely, prior NSTEMI, HTN, dyslipidemia, multinodular goiter who presented to the ED with complaint of abdominal pain, nausea, vomiting and diarrhea -Acute enteritis -Left malignant-appearing renal lesion -Atrial fibrillation on Eliquis -Diastolic CHF -HTN -Dyslipidemia Plan: -CT imaging reviewed -Suspect acute viral infection, already improved clinically -Stool culture, C diff, O&P ordered -Discontinue/hold stool softeners/laxatives if patient has diarrhea -Diet as tolerated -Supportive care -Work up for renal lesion deferred to primary service - Date & Time Date: 11/05/18 Time: 07:15 <Gerald Edwards - Last Filed: 11/05/18 14:14> Meds - Medications Medications: Current Medications Amlodipine Besylate (Norvasc) [address] [facility] Last Admin: 11/05/18 09:51 Dose: 5 mg Apixaban (Eliquis) 2.[address] [facility] Last Admin: 11/05/18 09:51 Dose: 2.5 mg Aspirin (Ecotrin) [address] [facility] Last Admin: 11/05/18 09:51 Dose: 81 mg Docusate Sodium (Colace) [address] [facility] Last Admin: 11/05/18 09:51 Dose: 100 mg Furosemide (Lasix) [address] [facility] Last Admin: 11/05/18 09:51 Dose: 40 mg Metronidazole (Flagyl) 500 mg in 100 mls @ 100 mls/hr IVPB Q8H [facility]; Protocol Last Admin: 11/05/18 12:48 Dose: 100 mls/hr Ciprofloxacin (Cipro 400mg/200ml Dsw) 400 mg in 200 mls @ 133 mls/hr IVPB DAILY [facility]; Protocol Last Admin: 11/05/18 09:49 Dose: 133 mls/hr Sodium Chloride (Sodium Chloride 0.45%) 1,000 mls @ 70 mls/hr IV .[id number] [facility] Last Admin: 11/05/18 12:30 Dose: 70 mls/hr Pantoprazole Sodium (Protonix Inj) 40 mg IVP DAILY [facility] Last Admin: 11/05/18 09:50 Dose: 40 mg Rosuvastatin Calcium (Crestor) 10 mg PO HS [facility] Last Admin: 11/04/18 23:02 Dose: 10 mg Results - Vital Signs Recent Vital Signs: Last Vital Signs Temp 98.8 F 11/05/18 07:00 Pulse 62 11/05/18 07:00 Resp 20 11/05/18 07:00 BP 109/65 11/05/18 09:51 Pulse Ox 95 11/05/18 07:00 - Labs Result Diagrams: 11/05/18 06:51 11/05/18 06:51 Labs: Laboratory Results - last 24 hr 11/04/18 11/04/18 11/04/18 18:12 18:12 18:12 WBC 9.2 RBC 4.28 Hgb 12.6 Hct 39.5 MCV 92.3 MCH 29.6 MCHC 32.0 L RDW 16.1 H Plt Count 163 MPV 9.9 Neut % (Auto) 86.4 H Lymph % (Auto) 5.3 L [place] % (Auto) 7.2 Eos % (Auto) 1.0 Baso % (Auto) 0.1 Neut # (Auto) 7.9 H Lymph # (Auto) 0.5 L [place] # (Auto) 0.7 Eos # (Auto) 0.1 Baso # (Auto) 0.0 Neutrophils % (Manual) 91 H Lymphocytes % (Manual) 4 L Monocytes % (Manual) 5 Platelet Estimate Normal RBC Morphology Normal Sodium 141 Potassium 4.0 Chloride 108 H Carbon Dioxide 22 Anion Gap 15 BUN 22 H Creatinine 1.2 Est GFR ( Amer) 51 Est GFR (Non-Af Amer) 42 Random Glucose 90 Calcium 9.5 Total Bilirubin 0.6 AST 49 H D ALT 22 Alkaline Phosphatase 115 Total Protein 7.7 Albumin 4.4 Globulin 3.2 Albumin/Globulin Ratio 1.4 Lipase 221 Urine Color Yellow Urine Clarity Hazy Urine pH 5.0 Ur Specific [place] 1.012 Urine Protein 1+ H Urine Glucose (UA) Normal Urine Ketones Negative Urine Blood Negative Urine Nitrate Positive H Urine Bilirubin Negative Urine Urobilinogen Normal Ur Leukocyte Esterase Neg Urine WBC (Auto) 2 Urine RBC (Auto) 1 Ur Squamous Epith Cells < 1 Urine Bacteria Many H Hyaline Casts 3-5 H 11/05/18 11/05/18 06:51 06:51 WBC 5.6 RBC 3.50 L Hgb 10.8 L Hct 33.0 L MCV 94.2 MCH 30.9 MCHC 32.8 L RDW 16.4 H Plt Count 138 MPV 9.8 Neut % (Auto) 76.2 H Lymph % (Auto) 11.8 L [place] % (Auto) 11.5 H Eos % (Auto) 0.3 Baso % (Auto) 0.2 Neut # (Auto) 4.3 Lymph # (Auto) 0.7 L [place] # (Auto) 0.6 Eos # (Auto) 0.0 Baso # (Auto) 0.0 Neutrophils % (Manual) Lymphocytes % (Manual) Monocytes % (Manual) Platelet Estimate RBC Morphology Sodium 137 Potassium 3.6 Chloride 108 H Carbon Dioxide 23 Anion Gap 9 L BUN 17 Creatinine 1.3 H Est GFR ( Amer) 47 Est GFR (Non-Af Amer) 39 Random Glucose 81 Calcium 8.2 L Total Bilirubin 0.3 AST 33 ALT 25 Alkaline Phosphatase 84 Total Protein 5.5 L Albumin 3.1 L D Globulin 2.5 Albumin/Globulin Ratio 1.2 Lipase Urine Color Urine Clarity Urine pH Ur Specific [place] Urine Protein Urine Glucose (UA) Urine Ketones Urine Blood Urine Nitrate Urine Bilirubin Urine Urobilinogen Ur Leukocyte Esterase Urine WBC (Auto) Urine RBC (Auto) Ur Squamous Epith Cells Urine Bacteria Hyaline Casts Attending/Attestation - Attestation I have personally seen and examined this patient.: Yes I have fully participated in the care of the patient.: Yes I have reviewed all pertinent clinical information: Yes Notes (Text): 11/05/18 14:13 Patient seen with GI Fellow and chart and CT reviewed. Symptoms appear to be related to an acute gastroenteritis. Check stool studies. Advance diet as tolerated as she appears to be asymptomatic today. Discharge to home if diet tolerated. No plans for colonoscopy at this time.
[2018-11-05] MEDS: Ciprofloxacin 400mg/200ml D5W 400 MG/200 ML BAG IVPB SCH (09:49)
[2018-11-05] MEDS: Sodium Chloride 0.45% 1,000 ML IV SCH ×2 (12:30→17:53)
[2018-11-06] MEDS: metroNIDAZOLE IV 500 mg/100 ml 500 MG/100 ML BAG IVPB SCH ×2 (05:09→18:12)
[2018-11-06 07:08] LABS: BASO % 0.2 % (0.0-2.0); EOS % 0.4 % (0.0-4.0); HEMOGLOBIN 11.2 g/dL (11.0-16.0); LYMPH % 17.1 % (20.0-40.0); MEAN CELL VOLUME 93.7 fL (81.0-99.0); MEAN CORPUSCULAR HEMOGLOBIN 30.8 pg (27.0-31.0); MEAN CORPUSCULAR HGB CONC 32.9 g/dL (33.0-37.0); MEAN PLATELET VOLUME 9.6 fL (7.2-11.7); MONO # 0.9 K/uL (0.0-0.8); MONO % 15.4 % (0.0-10.0); NEUT # 3.9 K/uL (1.8-7.0); NEUT % 66.9 % (50.0-75.0); NRBC % 0.1 % (0.0-2.0); RBC 3.63 Mil/uL (3.80-5.20); RED CELL DISTRIBUTION WIDTH 16.2 % (11.5-14.5); WHITE BLOOD COUNT 5.8 K/uL (4.8-10.8)
[2018-11-06 07:10] LABS: ALB/GLOB RATIO 1.3 (1.0-2.1); ALBUMIN 3.2 g/dL (3.5-5.0); CALCIUM 8.2 mg/dl (8.6-10.4)
[2018-11-06] MEDS: Potassium Chloride 20 MEQ in Sodium Chloride 0.45% 1,000 ML IV SCH ×3 (09:17→23:35)
[2018-11-06] MEDS: Ciprofloxacin 400mg/200ml D5W 400 MG/200 ML BAG IVPB SCH (11:05)
--- NOTE | 2018-11-06 15:23 | US ---
Date of service: 11/06/2018 PROCEDURE: Ultrasound of the Kidneys HISTORY: left renal mass COMPARISON: None available. TECHNIQUE: Sonogram of the kidneys. FINDINGS: RIGHT KIDNEY: Measures: 8.8 cm. Increased cortical echogenicity. Normal cortical thickness. No stone, solid mass lesion or hydronephrosis visualized. LEFT KIDNEY: Measures: 8.5 cm. Increased cortical echogenicity. Normal cortical thickness. Upper pole cortical cyst, 1.2 x 1.3 x 1.5 cm. There is a very small nodular mural calcification, approximately 2 mm, associated with this cyst. Mid to lower left renal cortical cyst, 2.1 x 2.2 x 2.5 cm. OTHER FINDINGS: None. IMPRESSION: Diffusely increased echogenicity of the kidneys consistent with diffuse medical renal disease. Two left renal cortical cysts.
[2018-11-06] MEDS ORDERED: Potassium Chloride 20 mEq/15 ml LIQ UD PO ONE ×2 (16:15→17:00)
[2018-11-06] MEDS: Ciprofloxacin 200mg/100ml D5W 100 ML IVPB SCH (17:04)
--- NOTE | 2018-11-06 20:08 | CARD ---
APPROVED REPORT Date of service: 11/04/2018 EKG Measurement Heart [id number] <Conclusion> Sinus rhythm with occasional premature ventricular complexes and premature atrial complexes Possible Left atrial enlargement ST & T wave abnormality, consider inferior ischemia ST & T wave abnormality, consider anterolateral ischemia Abnormal ECG
--- NOTE | 2018-11-06 21:33 | PN ---
DATE: 11/06/2018 SUBJECTIVE: The patient is alert and awake. She is still complaining of diarrhea but denies any vomiting today. The patient denies any shortness of breath or dizziness. PHYSICAL EXAMINATION: VITAL SIGNS: The patient has blood pressure of 137/71, pulse 82, respirations 20, and temperature 98.2. HEENT: Head is normocephalic. LUNGS: Clear. HEART: Regular rate and rhythm. ABDOMEN: Soft and mild tenderness in the left lower quadrant, and positive bowel sounds. EXTREMITIES: There is no edema. LABORATORY DATA: The patient has blood test done. WBC is 5.8, hemoglobin 11.2, hematocrit 34, and platelets 133. Chemistry showed sodium 136, potassium 2.9, chloride 107, bicarb 23, BUN 63, and creatinine 1.3, and glucose is 86. The plan is that we are going to continue the current medication, but is going to resume antibiotic therapy which is Cipro and Flagyl and some potassium replacement. that to microbiology as soon the patient is . So, the case was discussed and reviewed with Kanwal Calix. Orders are written. Jeb Hart MD
[2018-11-07] MEDS: metroNIDAZOLE IV 500 mg/100 ml 500 MG/100 ML BAG IVPB SCH ×3 (01:28→17:18)
[2018-11-07] MEDS: Ciprofloxacin 200mg/100ml D5W 100 ML IVPB SCH ×2 (04:17→15:34)
[2018-11-07] MEDS: Potassium Chloride 20 MEQ in Sodium Chloride 0.45% 1,000 ML IV SCH ×2 (04:18→14:32)
[2018-11-07 07:41] LABS: BASO % 0.3 % (0.0-2.0); EOS # 0.4 K/uL (0.0-0.7); EOS % 9.5 % (0.0-4.0); HEMOGLOBIN 10.9 g/dL (11.0-16.0); LYMPH # 1.1 K/uL (1.0-4.3); LYMPH % 27.4 % (20.0-40.0); MEAN CELL VOLUME 93.4 fL (81.0-99.0); MEAN CORPUSCULAR HEMOGLOBIN 30.7 pg (27.0-31.0); MEAN CORPUSCULAR HGB CONC 32.8 g/dL (33.0-37.0); MEAN PLATELET VOLUME 9.7 fL (7.2-11.7); MONO # 0.7 K/uL (0.0-0.8); MONO % 16.8 % (0.0-10.0); NEUT # 1.8 K/uL (1.8-7.0); NRBC % 0.1 % (0.0-2.0); RBC 3.56 Mil/uL (3.80-5.20); RED CELL DISTRIBUTION WIDTH 16.3 % (11.5-14.5)
[2018-11-07 07:52] LABS: ALB/GLOB RATIO 1.2 (1.0-2.1); ALBUMIN 2.9 g/dL (3.5-5.0); CALCIUM 8.1 mg/dl (8.6-10.4)
--- NOTE | 2018-11-07 09:53 | CP.PCM.PN ---
Subjective - Date & Time of Evaluation Date of Evaluation: 11/07/18 Time of Evaluation: 09:51 - Subjective Subjective: Patient denies having further vomiting and diarrhea. She complains of left flank pain. Objective - Vital Signs/Intake and Output Vital Signs (last 24 hours): Temp Pulse Resp BP Pulse Ox 98.5 F 76 20 119/77 95 11/07/18 08:32 11/07/18 08:32 11/07/18 08:32 11/07/18 09:37 11/07/18 08:32 Intake and Output: 11/07/18 11/07/18 06:59 18:59 Intake Total 1120 Balance 1120 - Medications Medications: Current Medications Amlodipine Besylate (Norvasc) 5 mg PO DAILY [facility] Last Admin: 11/07/18 09:38 Dose: 5 mg Apixaban (Eliquis) 2.5 mg PO BID [facility] Last Admin: 11/07/18 09:38 Dose: 2.5 mg Aspirin (Ecotrin) 81 mg PO DAILY [facility] Last Admin: 11/07/18 09:37 Dose: 81 mg Furosemide (Lasix) 40 mg PO DAILY [facility] Last Admin: 11/07/18 09:37 Dose: 40 mg Potassium Chloride 20 meq/ (Sodium Chloride) 1,010 mls @ 70 mls/hr IV .[id number] [facility] Last Admin: 11/07/18 04:18 Dose: 70 mls/hr Ciprofloxacin (Cipro 200mg/100ml D5w) 100 mls @ 67 mls/hr IVPB Q12H [facility]; Protocol Last Admin: 11/07/18 04:17 Dose: 67 mls/hr Metronidazole (Flagyl) 500 mg in 100 mls @ 100 mls/hr IVPB Q8H [facility]; Protocol Last Admin: 11/07/18 01:28 Dose: 100 mls/hr Pantoprazole Sodium (Protonix Inj) 40 mg IVP DAILY [facility] Last Admin: 11/07/18 09:37 Dose: 40 mg Rosuvastatin Calcium (Crestor) 10 mg PO HS [facility] Last Admin: 11/06/18 21:24 Dose: 10 mg - Labs Labs: 11/07/18 07:23 11/07/18 07:23 - Constitutional Appears: No Acute Distress - Head Exam Head Exam: ATRAUMATIC, NORMOCEPHALIC - Eye Exam Eye Exam: EOMI, PERRL - Neck Exam Neck Exam: absent: Lymphadenopathy, Thyromegaly - Respiratory Exam Respiratory Exam: NORMAL BREATHING PATTERN. absent: Rales, Rhonchi, Wheezes - Cardiovascular Exam Cardiovascular Exam: REGULAR RHYTHM, +S1, +S2. absent: Gallop, Rubs, Murmur - GI/Abdominal Exam GI & Abdominal Exam: Soft, Normal Bowel Sounds. absent: Tenderness, Mass, Organomegaly - Rectal Exam Rectal Exam: Deferred - Extremities Exam Extremities Exam: absent: Calf Tenderness, Pedal Edema Assessment and Plan (1) Diarrhea Assessment & Plan: Patient states that the diarrhea has improved. The stool C+S, leukocytes, and C difficile toxin were all negative. Will request stool for giardia antigen. Status: Acute (2) Renal mass Assessment & Plan: Renal ultrasound from a previous admission done on 12/16/2017 showed two cysts in the left kidney: upper pole measuring 1.4 cm x 1.2 cm x 1.2 cm; and lower pole measuring 2.2 cm x 1.9 cm x 1.[address] scan reports an indeterminate left renal mass measuring 2.1 cm and 63 Hounsfield units. Repeat sonogram 11/06/2017 again showed two cysts: upper pole measuring 1.2 cm x 1.3 cm x 1.5 cm with a very small nodular mural calcification; and lower pole measuring 2.1 cm x 2.2 cm x 2.5 cm. Overall, there has not been much change in the size of the cysts over the past year, though the nodular mural calcification in the upper pole cyst was not reported previously. Consider MRI and urology consultation. Status: Acute
--- NOTE | 2018-11-07 18:15 | PN ---
DATE: 11/07/2018 SUBJECTIVE: Today, the patient is alert and awake. She is still complaining of diarrhea. In fact, the patient had an episode of diarrhea today, but not in obvious quantity. Denies abdominal pain. PHYSICAL EXAMINATION: VITAL SIGNS: Blood pressure is 119/77, pulse 96, respirations 20, temperature 98.8. NECK: Supple. LUNGS: Clear. HEART: Regular rate and rhythm. ABDOMEN: Soft. No tenderness, positive bowel sounds. EXTREMITIES: There is no edema. ASSESSMENT AND PLAN: To repeat the blood work tomorrow and continue current medication and . Jeb Hart MD
[2018-11-08] MEDS: metroNIDAZOLE IV 500 mg/100 ml 500 MG/100 ML BAG IVPB SCH ×3 (01:16→18:10)
[2018-11-08] MEDS: Potassium Chloride 20 MEQ in Sodium Chloride 0.45% 1,000 ML IV SCH ×2 (03:43→18:29)
[2018-11-08] MEDS: Ciprofloxacin 200mg/100ml D5W 100 ML IVPB SCH ×2 (03:44→16:03)
--- NOTE | 2018-11-08 07:26 | HP ---
HISTORY OF PRESENT ILLNESS: This is an 88-year-old female with history of arthritis, hypertension, and cardiac arrhythmia. The patient had COPD, hyperlipidemia. The patient came in to the hospital complaining of abdominal pain and nausea and vomiting and diarrhea for the past two days. The patient denies eating any unknown food and also the patient came having some abdominal pain. ALLERGIES: THE PATIENT HAS NO KNOWN ALLERGIES. PAST MEDICAL HISTORY: As I mentioned, history of COPD and hypertension, hyperlipidemia, CHF, and pneumonia. SURGICAL HISTORY: History of appendectomy. REVIEW OF SYSTEMS: RESPIRATORY: The patient denies any shortness of breath. CARDIOVASCULAR: There is no chest pain or palpitation. GASTROINTESTINAL: The patient is complaining of diarrhea and vomiting and nausea. GENITOURINARY: The patient denies any dysuria. NEUROLOGIC: The patient feels weak. PHYSICAL EXAMINATION: GENERAL: The patient is alert, awake, oriented x3, but feels somewhat weak. VITAL SIGNS: Early blood pressure of 7 o'clock in the morning was 109/65, pulse was 62, respirations 20, temperature 98.8. NECK: Supple. LUNGS: Some fine rales at the bases. HEART: Regular rate and rhythm. Positive murmur. ABDOMEN: Soft with some mild tenderness to the left side of the abdomen and positive bowel sounds. EXTREMITIES: There is no edema. NEUROLOGIC: There is no motor deficit. LABORATORY DATA: The patient has some labs done. WBC is 9.2, hemoglobin 12.6, hematocrit 39.5, and platelets is 163. Chemistry showed sodium of 141, potassium is 4, chloride 108, bicarb is 22, BUN 22, creatinine is 1.2, glucose is 90. Total bilirubin of 0.6, AST 49, ALT 22, alkaline phosphatase is 115, albumin is 4.4, globulin 3.2, lipase is 221. The urine nitrite is positive, is many, and wbc is just 2 and so the patient also has a CAT scan of the abdomen and pelvis that was significant for a 2.1 cm exophytic left renal mass that measured approximately concerning for malignant neoplasm until proven otherwise. There is also a small bowel thickening, correlate clinically for antibiotics, concern for gastritis. There is a fat-containing left inguinal hernia. ASSESSMENT AND PLAN: So, the patient is admitted for, 1. Gastroenteritis. 2. Left renal mass. So, the patient will be placed on intravenous fluids, clear liquid diet, and also we will put on medication like Cipro and Flagyl. We will have a gastrointestinal consult with Dr. Edwards and also we will have a consult with Dr. Vargas, the urologist because of the kidney mass. The case was reviewed and discussed with Kanwal Calix, the nurse practitioner. Jeb Hart MD
[2018-11-08 07:34] LABS: BASO % 0.3 % (0.0-2.0); EOS # 0.4 K/uL (0.0-0.7); EOS % 8.8 % (0.0-4.0); HEMOGLOBIN 11.2 g/dL (11.0-16.0); LYMPH # 1.1 K/uL (1.0-4.3); LYMPH % 22.5 % (20.0-40.0); MEAN CELL VOLUME 92.8 fL (81.0-99.0); MEAN CORPUSCULAR HEMOGLOBIN 30.9 pg (27.0-31.0); MEAN CORPUSCULAR HGB CONC 33.3 g/dL (33.0-37.0); MEAN PLATELET VOLUME 9.8 fL (7.2-11.7); MONO # 0.8 K/uL (0.0-0.8); MONO % 15.6 % (0.0-10.0); NEUT # 2.6 K/uL (1.8-7.0); NEUT % 52.8 % (50.0-75.0); NRBC % 0.2 % (0.0-2.0); RBC 3.61 Mil/uL (3.80-5.20); RED CELL DISTRIBUTION WIDTH 15.9 % (11.5-14.5); WHITE BLOOD COUNT 4.8 K/uL (4.8-10.8)
[2018-11-08 07:45] LABS: ALB/GLOB RATIO 1.2 (1.0-2.1); ALBUMIN 3.1 g/dL (3.5-5.0); CALCIUM 8.1 mg/dl (8.6-10.4)
--- NOTE | 2018-11-08 07:49 | CP.PCM.PN ---
<OmayrarafyamanNorman - Last Filed: 11/08/18 16:33> Subjective - Date & Time of Evaluation Date of Evaluation: 11/08/18 Time of Evaluation: 07:30 - Subjective Subjective: PGY6 GI Fellow Progress Note Patient seen and examined bedside this morning. The patient states she has ongoing left shoulder pain and noted intermittent abdominal cramping, worsening with dairy intake. Spoke with nursing who stated patient passed one formed, but soft stool yesterday. No fever, chills. 12 system ROS performed and negative except where stated Objective - Vital Signs/Intake and Output Vital Signs (last 24 hours): Temp Pulse Resp BP Pulse Ox 97.7 F 68 20 116/66 96 11/08/18 00:00 11/08/18 00:00 11/08/18 00:00 11/08/18 00:00 11/08/18 00:00 Intake and Output: 11/08/18 11/08/18 06:59 18:59 Intake Total 1150 Balance 1150 - Medications Medications: Current Medications Amlodipine Besylate (Norvasc) 5 mg PO DAILY [facility] Last Admin: 11/07/18 09:38 Dose: 5 mg Apixaban (Eliquis) 2.5 mg PO BID [facility] Last Admin: 11/07/18 17:18 Dose: 2.5 mg Aspirin (Ecotrin) 81 mg PO DAILY [facility] Last Admin: 11/07/18 09:37 Dose: 81 mg Dicyclomine HCl (Bentyl) 10 mg PO Q12 PRN PRN Reason: stomach pain Last Admin: 11/07/18 18:27 Dose: 10 mg Furosemide (Lasix) 40 mg PO DAILY [facility] Last Admin: 11/07/18 09:37 Dose: 40 mg Potassium Chloride 20 meq/ (Sodium Chloride) 1,010 mls @ 70 mls/hr IV .[id number] [facility] Last Admin: 11/08/18 03:43 Dose: 70 mls/hr Ciprofloxacin (Cipro 200mg/100ml D5w) 100 mls @ 67 mls/hr IVPB Q12H [facility]; Protocol Last Admin: 11/08/18 03:44 Dose: 67 mls/hr Metronidazole (Flagyl) 500 mg in 100 mls @ 100 mls/hr IVPB Q8H [facility]; Protocol Last Admin: 11/08/18 01:16 Dose: 100 mls/hr Pantoprazole Sodium (Protonix Inj) 40 mg IVP DAILY [facility] Last Admin: 11/07/18 09:37 Dose: 40 mg Rosuvastatin Calcium (Crestor) 10 mg PO HS [facility] Last Admin: 11/07/18 21:12 Dose: 10 mg - Labs Labs: 11/08/18 07:10 11/08/18 07:10 - Constitutional Appears: Non-toxic, No Acute Distress - Eye Exam Eye Exam: EOMI, PERRL - ENT Exam ENT Exam: Mucous Membranes Moist - Respiratory Exam Respiratory Exam: Clear to Ausculation Bilateral. absent: Rales, Rhonchi, Wheezes - Cardiovascular Exam Cardiovascular Exam: Irregular Rhythm, +S1, +S2 - GI/Abdominal Exam GI & Abdominal Exam: Soft, Normal Bowel Sounds. absent: Distended, Firm, Guarding, Rigid, Tenderness, Organomegaly - Extremities Exam Extremities Exam: absent: Pedal Edema Additional comments: pain in left shoulder with palpation and ROM - Neurological Exam Neurological Exam: Alert, Awake, Oriented x3 - Psychiatric Exam Psychiatric exam: Anxious, Normal Affect - Skin Skin Exam: Dry, Warm Assessment and Plan - Assessment and Plan (Free Text) Assessment: Patient is an 88yo female with PMHx significant for diastolic CHF (EF 70%), at rial fibrillation on Eliquis, sick sinus syndrome/tachy-kely, prior NSTEMI, HTN, dyslipidemia, multinodular goiter who presented to the ED with complaint of abdominal pain, nausea, vomiting and diarrhea -Acute enteritis, improved -Left malignant-appearing renal lesion on CT -Atrial fibrillation on Eliquis -Diastolic CHF -HTN -Dyslipidemia Plan: -Stool culture, leukocytes and C diff all negative -O&P pending -Start lactose restricted diet -If no other indication for antibiotic coverage, consider discontinuation as this may be contributing to GI upset/soft stool -CT and U/S have discordant findings re: left renal lesion - consider urologic evaluation -Diet as tolerated -Ongoing supportive care <Gerald Edwards - Last Filed: 11/08/18 16:59> Objective - Vital Signs/Intake and Output Vital Signs (last 24 hours): Temp Pulse Resp BP Pulse Ox 97.4 F L 68 20 143/79 97 11/08/18 16:00 11/08/18 16:00 11/08/18 16:00 11/08/18 16:00 11/08/18 16:00 Intake and Output: 11/08/18 11/08/18 06:59 18:59 Intake Total 1150 800 Balance 1150 800 - Medications Medications: Current Medications Amlodipine Besylate (Norvasc) 5 mg PO DAILY [facility] Last Admin: 11/08/18 09:53 Dose: 5 mg Apixaban (Eliquis) 2.5 mg PO BID [facility] Last Admin: 11/08/18 09:53 Dose: 2.5 mg Aspirin (Ecotrin) 81 mg PO DAILY [facility] Last Admin: 11/08/18 09:53 Dose: 81 mg Dicyclomine HCl (Bentyl) 10 mg PO Q12 PRN PRN Reason: stomach pain Last Admin: 11/07/18 18:27 Dose: 10 mg Furosemide (Lasix) 40 mg PO DAILY [facility] Last Admin: 11/08/18 09:53 Dose: 40 mg Potassium Chloride 20 meq/ (Sodium Chloride) 1,010 mls @ 70 mls/hr IV .[id number] [facility] Last Admin: 11/08/18 03:43 Dose: 70 mls/hr Ciprofloxacin (Cipro 200mg/100ml D5w) 100 mls @ 67 mls/hr IVPB Q12H [facility]; Protocol Last Admin: 11/08/18 16:03 Dose: 67 mls/hr Metronidazole (Flagyl) 500 mg in 100 mls @ 100 mls/hr IVPB Q8H [facility]; Protocol Last Admin: 11/08/18 09:54 Dose: 100 mls/hr Pantoprazole Sodium (Protonix Inj) 40 mg IVP DAILY [facility] Last Admin: 11/08/18 09:53 Dose: 40 mg Rosuvastatin Calcium (Crestor) 10 mg PO HS [facility] Last Admin: 11/07/18 21:12 Dose: 10 mg - Labs Labs: 11/08/18 07:10 11/08/18 07:10 Attending/Attestation - Attestation I have personally seen and examined this patient.: Yes I have fully participated in the care of the patient.: Yes I have reviewed all pertinent clinical information, including history, physical exam and plan: Yes Notes (Text): 11/08/18 16:58 Patient seen and examined with GI Fellow. No further abdominal pain or diarrhea. Advise discharge planning Renal work up per medical team as needed.
[2018-11-08] MEDS ORDERED: Potassium Chloride 20 mEq ER Tab PO ONE (12:40)
[2018-11-09] MEDS: metroNIDAZOLE IV 500 mg/100 ml 500 MG/100 ML BAG IVPB SCH ×3 (02:09→18:16)
[2018-11-09] MEDS: Ciprofloxacin 200mg/100ml D5W 100 ML IVPB SCH ×2 (03:15→16:55)
[2018-11-09] MEDS: Potassium Chloride 20 MEQ in Sodium Chloride 0.45% 1,000 ML IV SCH (07:44)
--- NOTE | 2018-11-09 08:04 | PN ---
DATE: 11/08/2018 SUBJECTIVE: The patient was seen early this morning and the patient was alert and awake. Denies any chest pain. No shortness of breath, and the patient had been having soft stool, no diarrhea, but complaining of cramps in the abdomen at times. PHYSICAL EXAMINATION: VITAL SIGNS: Blood pressure 142/79, pulse 68, respirations 20, and temperature 97.4. NECK: Supple. LUNGS: Clear. HEART: Regular rate and rhythm. Positive murmur. Positive extra beats. ABDOMEN: Soft. No tenderness now. Positive bowel sounds. EXTREMITIES: There is no edema. LABORATORY DATA: The blood work done showed WBC of 4.8, hemoglobin 11.3, hematocrit 33.5, and platelet 137. Chemistry showed sodium of 136, potassium 3.5, chloride 107, bicarb is 22, BUN 9, and creatinine 1.1. ASSESSMENT AND PLAN: We are going to replace potassium, and also we are going to decrease the furosemide to 20 mg and also we are going to continue to monitor the recurrent and intermittent diarrhea. The case was discussed with Modesta Souza, the nurse practitioner. Jeb Hart MD
--- NOTE | 2018-11-09 13:57 | RAD ---
Chest x-ray two views HISTORY: Shortness of breath. COMPARISON: 10/14/2018 Findings: Biapical pleural thickening. Mild venous congestion. Patchy increased markings in the mid to lower lung zone with small left pleural effusion. Bilateral hilar prominence. Atherosclerotic calcification at the aortic. Tortuous ectatic aorta. Mild cardiomegaly. Degenerative changes in the spine and shoulders. Impression: Biapical pleural thickening. Mild venous congestion. Patchy increased markings in the mid to lower lung zone with small left pleural effusion. Bilateral hilar prominence. Atherosclerotic calcification at the aortic. Tortuous ectatic aorta. Mild cardiomegaly.
[2018-11-09] MEDS: Albuterol-Ipratrop 3 mg / 0.5 (3 ml) UD INH SCH ×2 (16:49→19:42)
[2018-11-10] MEDS: Albuterol-Ipratrop 3 mg / 0.5 (3 ml) UD INH SCH ×4 (00:21→11:45)
[2018-11-10] MEDS: metroNIDAZOLE IV 500 mg/100 ml 500 MG/100 ML BAG IVPB SCH ×2 (02:45→10:21)
[2018-11-10] MEDS: Ciprofloxacin 200mg/100ml D5W 100 ML IVPB SCH (04:26)
--- NOTE | 2018-11-10 06:40 | PN ---
DATE: 11/09/2018 SUBJECTIVE: Today, the patient is alert and awake, denied any diarrhea, but however, the patient is doing physical therapy. The patient was found to have O2 saturation at 85% and the patient was brought back to her room. The patient has been having some shortness of breath on exertion. PHYSICAL EXAMINATION: VITAL SIGNS: Blood pressure 101/64, pulse 78, respirations 20, temperature 97.9, and on room air at rest the oxygen saturation is 96%. NECK: Supple. LUNGS: There is some fine rales at the bases. HEART: Regular rate and rhythm. Positive murmur. ABDOMEN: Soft. EXTREMITIES: There is no edema. LABORATORY DATA: Now, we have ordered the tests for the patient, result came late this afternoon. She has partial mild venous congestion and partially increased marking in the mid and lower lung zone with mild left pleural effusion. There is bilateral hilar prominence, atherosclerotic calcification of the aorta, and mild cardiomyopathy. ASSESSMENT AND PLAN: So, the case was discussed with Modesta Souza and we ordered a consult with Dr. Jorgensen, Cardiology, since the patient has history of congestive heart failure and now the patient seems to be again in congestive heart failure. Blood done on the patient reveals BMP, CMP, and CBC of the patient. hold the discharge today. Jeb Hart MD
[2018-11-10 07:07] LABS: BASO % 0.3 % (0.0-2.0); EOS # 0.2 K/uL (0.0-0.7); EOS % 3.1 % (0.0-4.0); LYMPH # 1.6 K/uL (1.0-4.3); LYMPH % 23.6 % (20.0-40.0); MEAN CELL VOLUME 92.6 fL (81.0-99.0); MEAN CORPUSCULAR HEMOGLOBIN 29.9 pg (27.0-31.0); MEAN CORPUSCULAR HGB CONC 32.3 g/dL (33.0-37.0); MEAN PLATELET VOLUME 9.1 fL (7.2-11.7); MONO # 1.1 K/uL (0.0-0.8); MONO % 15.9 % (0.0-10.0); NEUT # 3.9 K/uL (1.8-7.0); NEUT % 57.1 % (50.0-75.0); NRBC % 0.2 % (0.0-2.0); RBC 3.69 Mil/uL (3.80-5.20); RED CELL DISTRIBUTION WIDTH 15.8 % (11.5-14.5); WHITE BLOOD COUNT 6.8 K/uL (4.8-10.8)
[2018-11-10 07:32] LABS: ALB/GLOB RATIO 1.3 (1.0-2.1); ALBUMIN 3.2 g/dL (3.5-5.0); ALT/SGPT 21 U/L (9-52); AST/SGOT 28 U/L (14-36); BLOOD UREA NITROGEN 11 mg/dL (7-17); CALCIUM 8.4 mg/dl (8.6-10.4); GFR NON-AFRICAN AMERICAN 52
[2018-11-10 07:51] VITALS: BP 124/72; PULSE 81; TEMP 97.6; O2SAT 99
[2018-11-10 07:58] LABS: B-TYPE NATRIURETIC PEPTIDE 1260 pg/mL (0-900)
[2018-11-10] MEDS: Potassium Chloride 20 mEq/15 ml LIQ UD PO SCH ×2 (08:50→12:23)
[2018-11-10] MEDS ORDERED: Potassium Chloride 20 mEq ER Tab PO ONE (13:00)
--- NOTE | 2018-11-10 17:40 | PCM.HF ---
Heart Failure Core Measure - Heart Failure Ejection Fraction: 40 % or Greater YOLANDA Inhibitor Prescribed: No Contraindication/Reason for not providing: allergic Beta-Yasmeen Prescribed: None Contraindication/Reason for not providing: sick sinus syndrome /asthma Angiotensin II Receptor Yasmeen Prescribed: No Contraindication/Reason for not providing: ef>45 AnticoagulationTherapy for Atrial Fibrillation/Atrialflutter: Yes Aldosterone Antagonist Prescribed: No Contraindication/Reason for not providing: ef.45 Hydralazine Nitrate Prescribed: Yes Implantable Cardioverter Defibrillator Therapy: No Contraindication/Reason for not providing: ef>45 Cardiac Resynchronization Therapy Prescribed: No Contraindication/Reason for not providing: ef.45 - Follow up Will be discharged to: Home Follow Up Date (must be within 7 days from discharge): 11/15/18 Follow Up Time: 14:00
--- NOTE | 2018-11-11 00:36 | PN ---
DATE: 11/10/2018 SUBJECTIVE: Today, the patient was seen earlier this morning. Denied any chest pain or shortness of breath. No dizziness. No palpitation. No constipation. PHYSICAL EXAMINATION: VITAL SIGNS: The patient has a blood pressure of 124/72, pulse 81, respirations 20, temperature 97.6. NECK: Supple. No JVD. LUNGS: Clear. HEART: Regular rate and rhythm. ABDOMEN: Soft, nontender. No palpable mass. EXTREMITIES: There is no edema. ASSESSMENT AND PLAN: The patient is able to walk now. On room air, the oxygen saturation was 96%. The plan is that we are going to continue the antibiotic by mouth and consider discharge the patient to home. The case was discussed and reviewed with Kanwal Calix, the nurse practitioner. Jeb Hart MD
--- NOTE | 2018-11-11 21:26 | DS ---
HOSPITAL COURSE: This patient is an 88-year-old female with history of hypertension, arthritis, history of cardiac arrhythmia, and also COPD. The patient came to the emergency room because the patient was complaining of some pain in the abdomen and with nausea and vomiting and also has diarrhea. The patient denies any questionable contaminated food. So, the patient was admitted and had a consult with Dr. Sho JULIO. The patient had a CAT scan of the abdomen that has shown small bowel wall thickening. The patient was going to gastric wall thickening with concern for gastritis. So, the patient was put on antibiotics that is Flagyl and Cipro, and also nebulizer treatment and the patient also was on Eliquis. Progressively, the patient's diarrhea which had started had stopped, but the patient was noted to have an elevated her O2 saturation that was low. The patient was put on Cardiology consult with Dr. Jorgensen. The BNP was in the high side, it was 1260. The patient was put on Lasix and also hydralazine and isosorbide. The patient is getting well and has ambulating today on room air with an oxygen on 96%. So, at this point, the patient will be relatively discharged home and we are going to follow this patient at home. Since yesterday, the GI had signed out since the patient was doing well gastroenterologic jackson. The case was reviewed and discussed with Kanwal Calix, the nurse practitioner. Jeb Hart MD
== END 2018-11-10 16:31 | disposition home or self-care (01) | DRG 392 ==
LOC: C.ER 15:21 → C.3T 20:44
PROVIDERS: ADMIT Specialist; ATTEND Specialist
DX: K29.70 Gastritis, unspecified, without bleeding (principal); I50.32 Chronic diastolic (congestive) heart failure; N39.0 Urinary tract infection, site not specified; E78.00 Pure hypercholesterolemia, unspecified; I11.0 Hypertensive heart disease with heart failure; I48.91 Unspecified atrial fibrillation; J44.9 Chronic obstructive pulmonary disease, unspecified; K52.9 Noninfective gastroenteritis and colitis, unspecified; N28.89 Other specified disorders of kidney and ureter; Z87.01 Personal history of pneumonia (recurrent); M19.90 Unspecified osteoarthritis, unspecified site; I49.5 Sick sinus syndrome; E04.2 Nontoxic multinodular goiter